=== PATIENT | female | born 1980 | race African-American/Black ===

== ENCOUNTER 2020-06-03 10:06 | Outpatient (REF) | payer OTHER, SELFPAY ==
--- NOTE | ~2020-06-03 | XR_ITS ---
EXAMINATION: XR CERVICAL SPINE CLINICAL INFORMATION: Neck pain COMPARISON: Previous x-ray August 2017 TECHNIQUE: 4 views of the cervical spine were obtained. FINDINGS: There is mild curvature of the upper thoracic spine to the left. Bone alignment is otherwise normal. No fracture or dislocation is seen. Disc spaces are normal. Prevertebral soft tissues are normal. XR/XR cervical spine 2V IMPRESSION: Mild curvature of the upper thoracic spine to the left otherwise unremarkable exam.
[2020-06-06 01:52] LABS: HPV mRNA E6/E7 rflx Not Detected (Not Detected)
== END 2020-06-03 10:07 | disposition home or self-care (01) ==
LOC: HO.XRAY 10:06
PROVIDERS: Absent Provider Internal Medicine; PCP Internal Medicine; Visit Provider Advanced Practice Midwife
DX: Z01.419 Encounter for gynecological examination (general) (routine) without abnormal findings (principal); Z11.51 Encounter for screening for human papillomavirus (HPV); E66.01 Morbid (severe) obesity due to excess calories; M54.2 Cervicalgia
CPT/HCPCS: 36415; 72040; 87624; 88142

== ENCOUNTER 2020-07-28 15:05 | Emergency (ER) | payer OTHER, SELFPAY ==
--- NOTE | ~2020-07-28 | CT_ITS ---
EXAMINATION: CT HEAD WITHOUT CONTRAST CLINICAL INFORMATION: Fall 2 days ago. Dizzy. Nausea. COMPARISON: None TECHNIQUE: Contiguous axial imaging was performed from the skull base to vertex without intravenous administration of contrast. This CT examination was performed using dose optimization techniques as appropriate, variously including the following: *Automated exposure control *Adjustment of mA and/or kV according to patient size (this includes techniques or standardized protocols for targeted exams where dose is matched to indication/reason for exam; i.e. extremities or head) *Use of iterative reconstruction technique DLP: 784 mGy-cm FINDINGS: There is no evidence of acute intracranial hemorrhage or territorial infarction. No abnormal mass effect or midline shift is seen. Ortega to white matter differentiation is well preserved. No extra-axial fluid collections are identified. The ventricles are normal in size. There is no abnormal attenuation within the brain parenchyma. The osseous structures and soft tissues are normal. The mastoid air cells and visualized portions of the paranasal sinuses are well aerated. CT/CT head/brain wo con IMPRESSION: No CT evidence of acute intracranial pathology.
[2020-07-28 15:16] VITALS: BP 178/100; PULSE 114; RESP 18; TEMP 36.6; O2SAT 99; BMI 41.5
[2020-07-28 16:00] VITALS: BP 142/80; PULSE 84; RESP 18; TEMP 36.6; O2SAT 99
[2020-07-28] MEDS: Ibuprofen 600 MG TABLET PO (18:21)
[2020-07-28 18:34] VITALS: BP 142/80; PULSE 84; RESP 18; TEMP 36.6; O2SAT 99
--- NOTE | 2020-07-28 19:02 | ED_ITS ---
HPI - Headache General Chief Complaint: Headache Stated Complaint: fall Time Seen by Provider: 07/28/20 18:50 Source: patient Mode of arrival: ambulatory Limitations: no limitations History of Present Illness HPI Narrative: Patient is a 40-year-old female with a past medical history of anxiety and depression who presents complaining of a headache. Patient states she slipped on her tile floors and fell backwards hitting the back of her head 2 days ago. She denies losing consciousness she denies being on a blood thinner but does take aspirin daily. She admits to dizziness and some nausea but has not actually vomited. She did take Tylenol Motrin at home and it did help her headache only temporarily. She states if she stays real still, it helps the pain. She states the dizziness is worse when she turns her head too quickly or tries to change positions from sitting to standing. She denies chest pain, shortness of breath. Related Data Home Medications Medication Instructions Recorded Confirmed bupropion HCl 300 mg 24 hr tablet, 300 mg PO QAM 06/03/20 06/03/20 extended release clonazepam 0.5 mg tablet 0.5 mg PO DAILY 06/03/20 06/03/20 melatonin 5 mg tablet 5 mg PO BEDTIME 06/03/20 nortriptyline 75 mg capsule 75 mg PO DAILY 06/03/20 06/03/20 quetiapine 50 mg tablet 50 mg PO BEDTIME 06/03/20 06/03/20 Previous Rx's Medication Instructions Recorded cyclobenzaprine 10 mg tablet 10 mg PO TID PRN #30 tab 06/03/20 Allergies Allergy/AdvReac Type Severity Reaction Status Date / Time No Known Allergies Allergy Verified 06/03/20 13:46 Review of Systems Review of Systems: Yes all other systems are reviewed and are negative Neurologic: Denies Abnormal speech present [facility] Past Medical History Medical History Anxiety Depression Hx of menorrhagia Sinusitis Surgical History Hx of section Hx of tubal ligation Family History Family History Mother HTN (hypertension) Diabetes Social History Social History Alcohol intake: current Alcohol intake frequency: holidays/special occasions only Smoking Status: Current every day smoker Smoked in Last 30 Days: Yes Use of substances other than those prescribed or required for medical reasons: Yes Substance Use Type: Marijuana Substance Use Frequency: Occasionally Last Used Substance: Unknown Any prior treatment program specific to substance use: No Advance Directives: No Advance Directives Information Provided: No Patient : No Gender identity: female Physical Exam Vital Signs: Vital Signs: Last Vital Signs Temp 98 F 07/28/20 18:34 Pulse 77 07/28/20 20:52 Resp 16 07/28/20 20:52 BP 135/86 07/28/20 20:52 Pulse Ox 99 07/28/20 18:34 Body Mass Index 41.5 Const: General: cooperative, healthy appearing, comfortable, well developed and anxious Orientation/consciousness: patient oriented x3 Limitations: no limitations HENMT: Head: Yes normal to inspection, Yes No palpable skull fracture present, Yes normocephalic, Yes atraumatic, No Villagomez's sign, No contusion and No raccoon eyes Eyes: General: appearance normal, both eyes and all related structures Visual Garrett: normal visual garrett by confrontation Alignment and Position: alignment normal Periorbital: periorbital findings normal Eyelids: Yes eyelids normal Sclerae: sclerae normal Corneas: corneas normal Pupils: Equal, round and reactive pupils present EOM: EOMs intact bilaterally Neck: Neck: Yes normal visual inspection, Yes full ROM and Yes supple Resp: Effort & Inspection: normal respiratory effort and able to speak in complete sentences Cardio: Rate: regular rate Back/Spine/Pelvis: Cervical Spine: cervical ROM normal, cervical muscular tend erness, No Cervical spine tenderness and No step off deformity Thoracic/Lumbar Spine: No thoracic spinal tenderness and No lumbar spinal tenderness Skin: General skin exam: no rashes or lesions noted Neuro: General: patient oriented x3 Cranial nerves: Yes CN's II-XII intact bilaterally and Yes Equal, round and reactive pupils present Cognition (Neuro): normal cognition Speech: No Abnormal speech present Gait exam (Neuro): Normal gait present Extrem: General: Yes normal to inspection Psych: Appearance: grossly normal Course Course Course Narrative: Patient is a 40-year-old female with a past medical history of anxiety and depression who presents complaining of a headache. Patient states she slipped on her tile floors and fell backwards hitting the back of her head 2 days ago and now has ZAMORA and nausea and dizziness. VSS sans elevated blood pressure upon arrival, 178/100, it is now 142/80. Heart rate also was elevated upon arrival at 114, is now 84. Physical exam reveals patient is moving very gingerly with her shoulders and neck held stiffly. Cervical spine was not tender. Will get a head CT then likely give migraine cocktail and discharge patient. Patient states she can get a ride home if medicated. Reevaluation(s) Reevaluation #1: CT of head is negative for acute process, will give migraine cocktail and reassess. Time: 20:18 Reevaluation #2: Patient reports feeling better after migraine cocktail. She has a ride home, will discharge. Time: 22:10 [facility] - Headache Imaging Data CT scan - head: Attestation: I personally reviewed and interpreted this imaging study as follows: My impression: No acute pathology Radiologist's impression: [address] [id number] Scan ReportSigned Patient: Carmen Seo EMR#: [id number]: [id number]:[id number]/Sex: 40 / FADM Date: 07/28/20Loc: [address] Dr: Ordering Physician: Janeth Lott PA-C Date of Service: 07/28/20 Procedure(s): CT head/brain wo con Accession Number(s): [id number] cc: Janeth Lott PA-C~ EXAMINATION: CT HEAD WITHOUT CONTRAST CLINICAL INFORMATION: Fall 2 days ago. Dizzy. Nausea. COMPARISON: None TECHNIQUE: Contiguous axial imaging was performed from the skull base to vertex without intravenous administration of contrast. This CT examination was performed using dose optimization techniques as appropriate, variously including the following: *Automated exposure control *Adjustment of mA and/or kV according to patient size (this includes techniques or standardized protocols for targeted exams where dose is matched to indication/reason for exam; i.e. extremities or head) *Use of iterative reconstruction technique DLP: 784 mGy-cm FINDINGS: There is no evidence of acute intracranial hemorrhage or territorial infarction. No abnormal mass effect or midline shift is seen. Ortega to white matter differentiation is well preserved. No extra-axial fluid collections are identified. The ventricles are normal in size. There is no abnormal attenuation within the brain parenchyma. The osseous structures and soft tissues are normal. The mastoid air cells and visualized portions of the paranasal sinuses are well aerated. CT/CT head/brain wo con IMPRESSION: No CT evidence of acute intracranial pathology. Dictated By:TEJAL AARON MDSigned By:<Electronically signed by TEJAL NEGRO MD in OV>07/28/201931 DD/ 1855TD/TT: Home Health Care Respiratory Therapist: PARVEEN Discharge Plan Discharge Clinical Impression: Concussion Qualifiers: Encounter type: initial encounter Loss of consciousness presence/duration: without LOC Qualified Code(s): S06.0X0A - Concussion without loss of consciousness, initial encounter Headache Qualifiers: Headache type: post-traumatic Headache chronicity pattern: acute headache Intractability: not intractable Qualified Code(s): G44.319 - Acute post-t raumatic headache, not intractable Patient Disposition: Home, Self-Care Instructions: Concussion (ED), Acute Headache (ED) Additional Instructions: Reviewed develop any acute changes in your vision, your headache suddenly gets worse, please return to the Emergency Dept or call 911. Prescriptions: No Action cyclobenzaprine 10 mg tablet 10 mg PO TID PRN (Reason: muscle spasm) Qty: 30 RF: 2 clonazepam 0.5 mg tablet 0.5 mg PO DAILY RF: 0 nortriptyline 75 mg capsule 75 mg PO DAILY RF: 0 bupropion HCl 300 mg tablet extended release 24 hr 300 mg PO QAM RF: 0 quetiapine [Seroquel] 50 mg tablet 50 mg PO BEDTIME RF: 0
--- NOTE | 2020-07-28 19:02 | PC.NURSE ---
Patient en route to CT scan.
[2020-07-28] MEDS: Lactated Ringers 1,000 ML 999 ML IV (20:46)
[2020-07-28] MEDS: diphenhydrAMINE HCL 50 MG/ML VIAL 25 MG IVPUSH (20:47)
[2020-07-28] MEDS: Ketorolac Tromethamine 30 MG/ML VIAL IVPUSH (20:47)
[2020-07-28] MEDS: Metoclopramide HCl 10 MG/2 ML VIAL IVPUSH (20:47)
[2020-07-28 20:52] VITALS: BP 135/86; PULSE 77; RESP 16
== END 2020-07-28 22:19 | disposition home or self-care (01) ==
PROVIDERS: Emergency Provider Internal Medicine; PCP Internal Medicine
DX: S06.0X0A Concussion without loss of consciousness, initial encounter (principal); G44.319 Acute post-traumatic headache, not intractable; R42 Dizziness and giddiness; F41.1 Generalized anxiety disorder; F43.0 Acute stress reaction; F33.1 Major depressive disorder, recurrent, moderate; F17.200 Nicotine dependence, unspecified, uncomplicated; W01.0XXA Fall on same level from slipping, tripping and stumbling without subsequent striking against object, initial encounter; Y93.9 Activity, unspecified; Y92.009 Unspecified place in unspecified non-institutional (private) residence as the place of occurrence of the external cause; Y99.9 Unspecified external cause status; Z79.899 Other long term (current) drug therapy; Z71.6 Tobacco abuse counseling
CPT/HCPCS: 70450; 96365; 96375; 99285; J1200; J1885; J2765

== ENCOUNTER 2020-09-09 11:10 | Outpatient (REF) | payer OTHER, SELFPAY ==
[2020-09-09 12:17] LABS: Basophils Percent Auto 0.3 % (0-2); Hemoglobin 7.2 g/dl (12.0-16.0); MANUAL DIFF FLAG SCAN; Neutrophils Percent Auto 55.4 % (45-73); SCAN SMEAR FLAG 1
[2020-09-09 12:20] LABS: Eosinophils Absolute Auto 0.1 X10*3/uL (0.0-0.4); Eosinophils Percent Auto 1.3 % (0-4); Hematocrit 26.1 % (37-47); Imm Gran Abs Auto 0.04 X10*3/uL (0.00-0.03); Imm Gran Pct Auto 0.5 % (0.0-0.4); Lymphocytes Percent Auto 38.2 % (20-40); Mean Corpuscular HGB Conc 27.6 g/dl (31.0-35.0); Mean Corpuscular Hemoglobin 15.7 pg (27.0-33.0); Monocytes Absolute Auto 0.3 X10*3/uL (0.1-1.2); Monocytes Percent Auto 4.3 % (2-11); Neutrophils Absolute Auto 4.4 X10*3/uL (2.0-8.3); Platelet Count 364 X10*3/uL (160-400); Red Blood Count 4.59 X10*6/uL (4.20-5.50); Red Cell Distribution Width 26.5 % (11.0-16.0)
[2020-09-09 12:25] LABS: Mean Corpuscular Volume 56.9 fL (80-98); PLT ABN DIST 1
[2020-09-09 12:40] LABS: SLIDE REVIEW VERIFIED
[2020-09-09 12:48] LABS: Alanine Aminotransferase < 6 U/L (0-31); Albumin Level 4.2 g/dL (3.5-5.0); Alkaline Phosphatase 88 U/L (39-117); Anion Gap 9 (12-20); Aspartate Amino Transferase 11 U/L (5-31); Bilirubin Total 0.6 mg/dL (0.0-1.0); Blood Urea Nitrogen 13 mg/dL (9-16); Calcium 9.2 mg/dL (8.4-10.2); Carbon Dioxide 26 mmol/L (22-29); Chloride 108 mmol/L (96-108); Cholesterol 156 mg/dL; Estimated Glomerular Filt Rate > 60; Glucose Fasting 98 mg/dL (60-99); HDL Cholesterol 40 mg/dL; LDL Cholesterol Calculated 98 mg/dl; Sodium 139 mmol/L (135-145); Total Protein 7.4 g/dL (6.5-8.0); Triglycerides 94 mg/dL
[2020-09-09 12:58] LABS: Syphilis Screen Nonreactive (Nonreactive)
[2020-09-09 13:05] LABS: Thyroid Stimulating Hormone 0.45 uIU/mL (0.32-4.0)
[2020-09-10 05:09] LABS: HIV AB/AG Nonreactive (Nonreactive); HIV Num 1 0.13 S/CO (0.00-0.99)
[2020-09-10 05:16] LABS: ~HepC Num1 0.06 S/CO (0.00-0.79); ~Hepatitis C Antibody Nonreactive (Nonreactive)
== END 2020-09-09 11:11 | disposition home or self-care (01) ==
LOC: HO.LAB 11:10
PROVIDERS: PCP Internal Medicine; Visit Provider Internal Medicine
DX: Z00.00 Encounter for general adult medical examination without abnormal findings (principal); Z11.3 Encounter for screening for infections with a predominantly sexual mode of transmission; Z11.4 Encounter for screening for human immunodeficiency virus [HIV]; Z20.2 Contact with and (suspected) exposure to infections with a predominantly sexual mode of transmission; E11.9 Type 2 diabetes mellitus without complications; E03.9 Hypothyroidism, unspecified
CPT/HCPCS: 36415; 80053; 80061; 84443; 85025; 86780; 86803; 87389

== ENCOUNTER 2021-01-27 14:04 | Outpatient (REF) | payer OTHER, SELFPAY ==
--- NOTE | ~2021-01-27 | XR_ITS ---
EXAMINATION: XR SHOULDER, LEFT CLINICAL INFORMATION: Pain in the left shoulder. COMPARISON: None TECHNIQUE: Four views of the left shoulder. FINDINGS: The bones and soft tissues are normal. No fracture. Glenohumeral and acromioclavicular alignment is anatomic with normal joint space. No abnormal soft tissue calcifications. XR/XR shoulder LT min 2V IMPRESSION: Normal left shoulder.
== END 2021-01-27 14:05 | disposition home or self-care (01) ==
LOC: HO.XRAY 14:04
PROVIDERS: PCP Internal Medicine; Visit Provider Internal Medicine
DX: M25.512 Pain in left shoulder (principal)
CPT/HCPCS: 73030

== ENCOUNTER 2021-03-13 11:00 | Outpatient (RCR) | payer OTHER, SELFPAY ==
--- NOTE | 2021-02-11 10:53 | MHC.PT.EP ---
[facility] [place] Office [place] Office [place] Office [address] [place] [address] [phone] F: [phone] F: [phone] F: [phone] F: [phone] Physical Therapy Plan of Care Date of Evaluation: Date of Surgery: NA Diagnosis: Pain in unspecified shoulder Assessment: Carmen is a 40 year old female who is referred to PT for pain in unspecified shoulder . Pt reports of having insidious onset of pain in B shoulder blades- L> about a month back. Denies any trauma or falls. On PT examination she reported of having 7/10 pain in B shoulder blades, TTP over medial border of B scapula from T3 to T10, had decreased B shoulder gross ROM, decreased scapular muscle strength and altered posture. Due to these impairments she had difficulty with ADLs like sleeping, cleaning, cooking, mopping, sweeping, carrying heavy weight and chopping. 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 She would benefit from skilled PT to address the aforementioned impairments and improve tolerance to ADLs. Frequency and Duration: The patient will be seen 2/week for 5 weeks Short Term Goals: 1. Pt will have 50% decrease in which will enable her to sleep through the night in 2 weeks. 2. Pt will demonstrate all thoracic ROM and mobility WNL which will help her with sweeping and mopping in 3 weeks Trimmer Sawyer Goals: 1. Pt will demonstrate an increase in muscle strength by 1 grade which will enable her to carry heavy objects and performing chopping activities in 5 weeks. 2. Pt will be independent with HEP for symptom management and maintenance following d/c in 5 weeks Treatment Plan: Modalities to reduce pain, spasms and effusion. Manual therapy to restore motion and function. Therapeutic exercise to improve strength and flexibility. Neuromuscular re-education for posture and balance. Therapeutic activities to return to functional activities of daily living. Electronically signed by: Zandra Cade PT DPT Please sign and return to therapist. Thank you for your referral.
--- NOTE | 2021-04-15 14:11 | MHC.PT.DC ---
[facility] [place] [facility] [place] Office [place] Office [address] [place] [address] [phone] F: [phone] F: [phone] F: [phone] F: [phone] Physical Therapy Discharge Report Diagnosis: Pain in unspecified shoulder Date of Surgery: NA Date of Evaluation: 02/11/21 Date of Discharge: 04/15/21 Treatments to Date: 8 Cancellations to Date: 0 No Shows to Date: 0 Discharge Status: Patient Elected to Stop Discharge Summary: Carmen was making progress however stopped therapy after 8 visits. Attempted to call pt to make appointments however pt did not return to therapy. She is therefore being d/c from therapy. Electronically signed by: Zandra Cade, PT DPT Please sign and return to therapist. Thank you for your referral.
== END 2021-04-15 14:12 | disposition home or self-care (01) ==
LOC: HO.PT 11:00
PROVIDERS: PCP Internal Medicine; Visit Provider Internal Medicine
DX: M25.512 Pain in left shoulder (principal)
CPT/HCPCS: 97110; 97140; 97161

== ENCOUNTER 2021-06-25 09:27 | Outpatient (REF) | payer OTHER, SELFPAY ==
[2021-06-26 07:55] LABS: CT PCR NOT DETECTED (Not Detect.); NG PCR NOT DETECTED (Not Detect.)
== END 2021-06-25 09:28 | disposition home or self-care (01) ==
LOC: HO.LAB 09:27
PROVIDERS: Visit Provider Obstetrics & Gynecology
DX: Z01.419 Encounter for gynecological examination (general) (routine) without abnormal findings (principal); N93.9 Abnormal uterine and vaginal bleeding, unspecified; Z11.3 Encounter for screening for infections with a predominantly sexual mode of transmission; Z11.8 Encounter for screening for other infectious and parasitic diseases; F17.210 Nicotine dependence, cigarettes, uncomplicated; F41.8 Other specified anxiety disorders; Z98.51 Tubal ligation status; Z68.42 Body mass index [BMI] 45.0-49.9, adult
CPT/HCPCS: 87491; 87591; 99212

== ENCOUNTER 2021-07-16 11:26 | Outpatient (REF) | payer OTHER, SELFPAY ==
--- NOTE | ~2021-07-16 | US_ITS ---
EXAMINATION: US PELVIS CLINICAL INFORMATION: Abnormal vaginal bleeding. COMPARISON: None TECHNIQUE: Ultrasound of the pelvis is performed using both transabdominal and transvaginal transducers along with Doppler. Transvaginal imaging is performed due to inadequate visualization transabdominally. FINDINGS: UTERUS: The uterus is measuring 12 x 4 x 6 cm. Anteverted and anteflexed. The endometrial thickness is measured by the pulp mill team leader at 2.2 cm. This is endovaginally. Characterized by mixed echogenicity on the endovaginal exam only. RIGHT OVARY: The right ovary is 4 x 2.8 x 2.5 cm. Volume 15 mL. LEFT OVARY: The left ovary is 3.3 x 2 x 2.7 cm. Volume 9 mL. The ovaries are felt to be within normal limits. Normal ovarian vascularity. A small amount of free fluid is noted. US/US pelvic and transvaginal IMPRESSION: Endometrium on the endovaginal images is characterized by ill-definition and the aviation survival technician measures the endometrial region at 2.2 cm. Therefore hyperplasia or polyp formation versus other would be a consideration. The ovaries are within normal limits. Small amount free fluid is noted.
== END 2021-07-16 11:27 | disposition home or self-care (01) ==
LOC: HO.US 11:26
PROVIDERS: Visit Provider Obstetrics & Gynecology
DX: N93.9 Abnormal uterine and vaginal bleeding, unspecified (principal)
CPT/HCPCS: 76830; 76856

== ENCOUNTER 2021-08-12 08:46 | Outpatient (REF) | payer OTHER, SELFPAY | END 2021-08-12 08:47 | disposition home or self-care (01) | LOC: HO.LAB 08:46 | PROVIDERS: Visit Provider Obstetrics & Gynecology | DX: N93.9 Abnormal uterine and vaginal bleeding, unspecified (principal); Z32.02 Encounter for pregnancy test, result negative | CPT/HCPCS: 58100; 81025; 88305 ==

== ENCOUNTER 2021-08-19 10:05 | Outpatient (REF) | payer OTHER, SELFPAY ==
[2021-08-19 11:49] LABS: Hemoglobin 7.1 g/dl (12.0-16.0); Mean Corpuscular HGB Conc 27.3 g/dl (31.0-35.0); Mean Corpuscular Hemoglobin 15.8 pg (27.0-33.0); NRBC Pct Auto 0.2 /100WBC (0.0-0.2); Platelet Count 277 X10*3/uL (160-400); Red Blood Count 4.49 X10*6/uL (4.20-5.50); Red Cell Distribution Width 27.4 % (11.0-16.0)
[2021-08-19 11:51] LABS: Mean Corpuscular Volume 57.9 fL (80.0-98.0)
[2021-08-19 12:20] LABS: HCG Quantitative < 2 mIU/mL; TSH reflex Free T4 0.77 uIU/mL (0.32-4.0)
== END 2021-08-19 10:06 | disposition home or self-care (01) ==
LOC: HO.LAB 10:05
PROVIDERS: PCP Internal Medicine; Visit Provider Obstetrics & Gynecology
DX: N93.9 Abnormal uterine and vaginal bleeding, unspecified (principal)
CPT/HCPCS: 36415; 84443; 84702; 85027; 99212

== ENCOUNTER → 2021-08-26 10:02 | Outpatient (BNVA) | payer OTHER, SELFPAY | PROVIDERS: PCP Internal Medicine; Visit Provider Obstetrics & Gynecology | DX: N93.9 Abnormal uterine and vaginal bleeding, unspecified (principal); D64.9 Anemia, unspecified | CPT/HCPCS: 99212 ==

== ENCOUNTER 2021-09-01 07:47 | Outpatient (REF) | payer OTHER, SELFPAY ==
--- NOTE | ~2021-09-01 | MM_ITS ---
EXAMINATION: MM SCREENING DIGITAL BREAST TOMOSYNTHESIS, BILATERAL CLINICAL INFORMATION: 41-year-old for baseline screening. At time of appointment, patient notes clear right nipple discharge for one year. No known family history breast cancer. Age 41. No prior breast imaging. The lifetime risk of breast cancer based on the Tyrer-Cuzick Model is 9%. COMPARISON: None (current study represents initial baseline exam). TECHNIQUE: Digital breast tomosynthesis is performed in both the craniocaudal and mediolateral oblique views along with computer-aided detection (CAD). Synthesized 2D images are generated from the tomosynthesis. Additional bilateral CC, right MLO, and left MLO x2 views are obtained for coverage. FINDINGS: There are scattered areas of fibroglandular density (ACR BI-RADS breast composition Category b). There is fine fibronodular pattern. There is no architectural abnormality or abnormal calcifications. Right breast has smooth benign-appearing 0.5 cm oval nodule posterior 9:00 position. Left breast has 2 smooth benign-appearing dominant nodules central breast slightly inner and slightly lateral on CC view, under 1 cm. The bilateral axilla and skin contours are unremarkable. There are bilateral nipple piercings. MM/MM tomosynthesis screening BI IMPRESSION: -Bilateral benign-appearing nodularity. ASSESSMENT: BI-RADS 0: Incomplete - Need Additional Imaging Evaluation RECOMMENDATION: 1. Bilateral targeted breast ultrasound for probable benign nodularity. Right breast ultrasound to also include the retroareolar/periareolar region in this patient with chronic right clear nipple discharge. 2. Radiology department staff will contact the patient for additional imaging. This patient's information was entered into a reminder system with a target due date for their next mammogram.
== END 2021-09-01 07:48 | disposition home or self-care (01) ==
LOC: HO.MAMMO 07:47
PROVIDERS: PCP Internal Medicine; Visit Provider Internal Medicine
DX: Z12.31 Encounter for screening mammogram for malignant neoplasm of breast (principal)
CPT/HCPCS: 77063; 77067

== ENCOUNTER 2021-09-03 09:57 | Outpatient (REF) | payer OTHER, SELFPAY ==
--- NOTE | ~2021-09-03 | US_ITS ---
EXAMINATION: US DIAGNOSTIC ULTRASOUND BREAST, RIGHT US DIAGNOSTIC ULTRASOUND BREAST, LEFT CLINICAL INFORMATION: 41-year-old with history clear unilateral right nipple discharge for one year with squeezing. No spontaneous discharge, bloody discharge, or palpable abnormality. Baseline screening mammography shows benign-appearing nodularity left breast and posterior 9:00 right breast. No known family history breast cancer. TC score 9%. COMPARISON: Screening mammography 09/01/2021. TECHNIQUE: Ultrasound of the bilateral breasts is targeted to the areas of nodularity described on screening exam. In addition, retroareolar and periareolar imaging right breast performed. Grayscale imaging and color Doppler are performed without and with harmonics. FINDINGS: Right: There is no focal suspicious finding. There is no cystic or solid mass, architectural abnormality, duct ectasia, or edema in the soft tissue planes. There is no ultrasound correlate for patient's unilateral nipple discharge. The benign-appearing nodularity posterior 9:00 is no ultrasound correlate. Left: There is no focal suspicious finding. There is no cystic or solid mass, architectural abnormality, duct ectasia, or edema in the soft tissue planes. There are no ultrasound correlates for the benign-appearing nodularity central inner and central outer left breast noted at screening. Results are discussed with the patient at time of visit. US/US breast LT limited IMPRESSION: -Unremarkable bilateral ultrasound. -No cystic or solid mass or architectural abnormality. ASSESSMENT: BI-RADS 3: Probably Benign RECOMMENDATION: 1. Patient's chronic clear non-spontaneous unilateral right nipple discharge should be managed based on the clinical impression. If clinically indicated, further evaluation could be performed with breast MRI without and with contrast. 2. Otherwise, bilateral diagnostic mammography in 6 months to follow the probable benign nodularity noted at screening. This patient's information was entered into a reminder system with a target due date for their next mammogram.
--- NOTE | ~2021-09-03 | US_ITS ---
EXAMINATION: US DIAGNOSTIC ULTRASOUND BREAST, RIGHT US DIAGNOSTIC ULTRASOUND BREAST, LEFT CLINICAL INFORMATION: 41-year-old with history clear unilateral right nipple discharge for one year with squeezing. No spontaneous discharge, bloody discharge, or palpable abnormality. Baseline screening mammography shows benign-appearing nodularity left breast and posterior 9:00 right breast. No known family history breast cancer. TC score 9%. COMPARISON: Screening mammography 09/01/2021. TECHNIQUE: Ultrasound of the bilateral breasts is targeted to the areas of nodularity described on screening exam. In addition, retroareolar and periareolar imaging right breast performed. Grayscale imaging and color Doppler are performed without and with harmonics. FINDINGS: Right: There is no focal suspicious finding. There is no cystic or solid mass, architectural abnormality, duct ectasia, or edema in the soft tissue planes. There is no ultrasound correlate for patient's unilateral nipple discharge. The benign-appearing nodularity posterior 9:00 is no ultrasound correlate. Left: There is no focal suspicious finding. There is no cystic or solid mass, architectural abnormality, duct ectasia, or edema in the soft tissue planes. There are no ultrasound correlates for the benign-appearing nodularity central inner and central outer left breast noted at screening. Results are discussed with the patient at time of visit. US/US breast RT limited IMPRESSION: -Unremarkable bilateral ultrasound. -No cystic or solid mass or architectural abnormality. ASSESSMENT: BI-RADS 3: Probably Benign RECOMMENDATION: 1. Patient's chronic clear non-spontaneous unilateral right nipple discharge should be managed based on the clinical impression. If clinically indicated, further evaluation could be performed with breast MRI without and with contrast. 2. Otherwise, bilateral diagnostic mammography in 6 months to follow the probable benign nodularity noted at screening. This patient's information was entered into a reminder system with a target due date for their next mammogram.
== END 2021-09-03 09:58 | disposition home or self-care (01) ==
LOC: HO.MAMMO 09:57
PROVIDERS: PCP Internal Medicine; Visit Provider Internal Medicine
DX: N63.25 Unspecified lump in the left breast, overlapping quadrants (principal); N64.52 Nipple discharge
CPT/HCPCS: 76642

== ENCOUNTER → 2021-10-28 12:49 | Outpatient (BNVA) | payer OTHER, SELFPAY | PROVIDERS: PCP Internal Medicine; Visit Provider Obstetrics & Gynecology | DX: N93.9 Abnormal uterine and vaginal bleeding, unspecified (principal); D64.9 Anemia, unspecified | CPT/HCPCS: 99212 ==

== ENCOUNTER 2021-11-27 11:02 | Outpatient (REF) | payer OTHER, SELFPAY ==
[2021-11-27 12:35] LABS: Hematocrit 31.5 % (37.0-47.0); Mean Corpuscular HGB Conc 28.6 g/dl (31.0-35.0); Mean Corpuscular Hemoglobin 18.2 pg (27.0-33.0); Platelet Count 379 X10*3/uL (160-400); Red Blood Count 4.94 X10*6/uL (4.20-5.50); Red Cell Distribution Width 23.8 % (11.0-16.0); White Blood Count 9.6 X10*3/uL (4.8-10.8)
[2021-11-27 12:39] LABS: Mean Corpuscular Volume 63.8 fL (80.0-98.0)
[2021-11-27 13:07] LABS: Alanine Aminotransferase 10 U/L (0-31); Albumin Level 4.1 g/dL (3.5-5.0); Alkaline Phosphatase 106 U/L (39-117); Anion Gap 14 (12-20); Aspartate Amino Transferase 13 U/L (5-31); Bilirubin Total 0.5 mg/dL (0.0-1.0); Blood Urea Nitrogen 9 mg/dL (9-16); Calcium 9.4 mg/dL (8.4-10.2); Carbon Dioxide 25 mmol/L (22-29); Chloride 106 mmol/L (96-108); Cholesterol 130 mg/dL; Estimated Glomerular Filt Rate > 60; Glucose Fasting 93 mg/dL (60-99); HDL Cholesterol 33 mg/dL; LDL Cholesterol Calculated 87 mg/dl; Sodium 141 mmol/L (135-145); Total Protein 7.5 g/dL (6.5-8.0); Triglycerides 51 mg/dL
== END 2021-11-27 11:03 | disposition home or self-care (01) ==
LOC: HO.LAB 11:02
PROVIDERS: PCP Internal Medicine; Visit Provider Obstetrics & Gynecology
DX: N93.9 Abnormal uterine and vaginal bleeding, unspecified (principal); I10 Essential (primary) hypertension; E78.5 Hyperlipidemia, unspecified
CPT/HCPCS: 36415; 80053; 80061; 85027; 99212

== ENCOUNTER 2022-03-10 13:21 | Outpatient (REF) | payer OTHER, SELFPAY ==
--- NOTE | ~2022-03-10 | MM_ITS ---
EXAMINATION: MM DIAGNOSTIC DIGITAL BREAST TOMOSYNTHESIS, BILATERAL CLINICAL INFORMATION: Bilateral nodular densities. The lifetime risk of breast cancer based on the Tyrer-Cuzick Model is 9.0%. COMPARISON: Mammography: 09/03/2021 and 09/01/2021. TECHNIQUE: Digital breast tomosynthesis is performed in both the craniocaudal and mediolateral oblique views along with computer-aided detection (CAD). Synthesized 2D images are generated from the tomosynthesis. FINDINGS: There are scattered areas of fibroglandular density (ACR BI-RADS breast composition Category b). There are no new significant masses, abnormal calcifications, or other abnormalities. There is stability of the bilateral densities with the density about the deep aspect of the right breast appearing to have a fatty cleft and likely representing an intramammary lymph node. Recommend 1 year diagnostic mammography as followup. Results are discussed with the patient at time of visit. MM/MM tomosynthesis diagnostic BI IMPRESSION: There are no significant changes from prior study. ASSESSMENT: BI-RADS 3: Probably Benign. RECOMMENDATION: Diagnostic mammography at time of next annual exam, due in 12 months. This patient's information was entered into a reminder system with a target due date for their next mammogram.
== END 2022-03-10 13:22 | disposition home or self-care (01) ==
LOC: HO.MAMMO 13:21
PROVIDERS: Visit Provider Internal Medicine
DX: R92.2 Inconclusive mammogram (principal)
CPT/HCPCS: 77062; 77066

== ENCOUNTER 2022-04-23 14:00 | Outpatient (REF) | payer OTHER, SELFPAY ==
--- NOTE | ~2022-04-23 | XR_ITS ---
EXAMINATION: XR KNEE, LEFT CLINICAL INFORMATION: Pain. COMPARISON: None TECHNIQUE: AP and lateral views of the left knee. FINDINGS: Bony alignment and mineralization are normal. The lateral, medial and patellofemoral joint space compartments are well-maintained. There is mild peripheral osteophyte formation of the upper and lower articular surfaces of the patella. No fracture, dislocation or joint effusion is seen. There is no foreign body. XR/XR knee LT 2V IMPRESSION: 1. No fracture, dislocation or left knee joint effusion is seen. 2. There is mild osteoarthritic change of the left patellofemoral compartment.
== END 2022-04-23 14:01 | disposition home or self-care (01) ==
LOC: HO.XRAY 14:00
PROVIDERS: PCP Internal Medicine; Visit Provider Internal Medicine
DX: M25.562 Pain in left knee (principal)
CPT/HCPCS: 73560

== ENCOUNTER 2022-04-26 17:03 | Emergency (ER) | payer OTHER, SELFPAY ==
[2022-04-26 17:06] VITALS: BP 195/95; PULSE 117; RESP 18; TEMP 36.7; O2SAT 99; BMI 41.5
--- NOTE | 2022-04-26 17:16 | ED_ITS ---
HPI - General Adult General Chief complaint: Skin/Abscess/Foreign Body Stated complaint: Ruptured abscess Time Seen by Provider: 04/26/22 17:16 Source: patient Mode of arrival: ambulatory Limitations: no limitations History of Present Illness HPI narrative: Patient is a 42 year old assigned female at with a history of depression presenting to the emergency department today with a ruptured cyst on her chest. Patient states that she has gotten a cyst in the same spot on her left chest just under her breast before but this time it opened up on it's own. Patient states that she has had some minimal drainage from the area. Patient denies any dizziness, lightheadedness, abdominal pain, nausea, vomiting, fever, chills, blurry vision, double vision, loss of vision, chest pain, difficulty breathing, shortness of breath, back pain, night sweats, pain with urination, increased urinary frequency, increased urinary urgency, blood in her urine or stool, syncope or a near syncopal episode, recent trauma or falls, bowel incontinence, bladder incontinence, bowel retention, bladder retention, or any other complaints at this time. Onset (ago): day(s) Location: chest Radiation: non-radiation Severity: mild Severity scale (1-10): 2 Quality: dull Relieving factors: none Exacerbating factors: none Associated symptoms: denies other symptoms Treatments prior to arrival: none Related Data Home Medications Medication Instructions Recorded Confirmed bupropion HCl 300 mg 24 hr tablet, 300 mg PO QAM 06/03/20 04/23/22 extended release clonazepam 0.5 mg tablet 0.5 mg PO DAILY 06/03/20 04/23/22 melatonin 5 mg tablet 5 mg PO BEDTIME 06/03/20 04/23/22 quetiapine 50 mg tablet (Seroquel) 50 mg PO BEDTIME 06/03/20 04/23/22 duloxetine 30 mg capsule,delayed 30 mg PO DAILY 01/27/21 04/23/22 release duloxetine 60 mg capsule,delayed 60 mg PO DAILY 09/04/21 04/23/22 release Previous Rx's Medication Instructions Recorded ibuprofen 600 mg tablet 600 mg PO Q8H PRN pain 3 days #30 11/27/21 tabs naproxen 500 mg tablet (Naprosyn) 500 mg PO BID PRN pain #60 tabs 04/23/22 cephalexin 500 mg capsule 500 mg PO Q6H 7 days #28 caps 04/26/22 fluconazole 150 mg tablet 150 mg PO Q3D 2 doses #2 tabs 04/26/22 (Diflucan) Allergies Allergy/AdvReac Type Severity Reaction Status Date / Time No Known Allergies Allergy Verified 04/23/22 13:27 Review of Systems Constitutional: Constitutional: Reports no additional constitutional complaints, Denies chills, Denies fever(s) and Denies night sweats Eyes: Eyes: Reports no additional eye complaints, Denies blurry vision, Denies change in vision, Denies diplopia, Denies eye discharge, Denies loss of vision and Denies eye pain ENT: Denies dizziness Cardiovascular: Cardiovascular: Reports no additional cardiovascular complaints, Denies chest pain, Denies lightheadedness, Denies Loss of Consciousness and Denies dyspnea Respiratory: Respiratory: Reports no additional respiratory complaints and Denies dyspnea Gastrointestinal: Gastrointestinal: Reports no additional gastrointestinal complaints, Denies abdominal pain, Denies melena, Denies hematochezia, Denies change in bowel habits and Denies change in stool character Genitourinary: Genitourinary: Denies hematuria, Denies urinary frequency, Denies dysuria, Denies urinary incontinence, Denies urinary hesitancy and Denies urinary urgency Musculoskeletal: Musculoskeletal: Reports no additional musculoskeletal complaints, Denies numbness and Denies tingling Integumentary/Breasts: Comments: ruptured cyst on left chest Neurologic: Denies dizziness, Denies loss of vision, Denies numbness and Denies tingling Psychiatric: Psychiatric: Reports no additional psychiatric complaints Endocrine: Endocrine: Reports no additional endocrine complaints Hematologic/Lymphatic: Hematologic/Lymphatic: Reports no additional hematologic/lymphatic complaints Allergic/Immunologic: Allergic/Immunologic: Reports no additional allergic/immunologic complaints [facility] Past Medical History Attestation statement: The following information was validated with the patient. Source: old records reviewed and nursing notes reviewed Medical History Anxiety Hx of menorrhagia Sinusitis Surgical History Hx of section Hx of tubal ligation Family History Family History Mother HTN (hypertension) Diabetes Mental health disorder Substance use disorder Social History Social History Housing: Apartment Alcohol intake: current Alcohol intake frequency: holidays/special occasions only Patient Tobacco Use Status: Former Tobacco user Quit Date: 04/13/22 Tobacco use type: Cigarette Cigarettes Per Day: 0 e-Cigarette/Vaping Use: Never Used Second Hand Smoke Exposure: No Substance Use Type: Marijuana Advance Directives: No Advance Directives Information Provided: Yes service: No Current occupational status: employed and unemployed Current occupation: [employer] Gender identity: Female Cognitive needs: No Hearing needs: No Vision needs: No Physical Exam ED Vital Signs: Vital Signs - 24 hr 04/26/22 17:06 Temperature 98.1 F Pulse Rate 117 H Respiratory Rate 18 Blood Pressure 195/95 H Pulse Oximetry 99 Oxygen Delivery Method Room Air BMI result Body Mass Index 41.5 Const General: cooperative, no acute distress, alert and awake Nutritional Appearance: well nourished Orientation/consciousness: patient oriented x3 Limitations: no limitations HENMT Head: Yes normal to inspection and Yes atraumatic Ears: hearing grossly normal bilaterally and external ears normal General nose exam: Normal external nose present, no nasal discharge noted and no epistaxis Face and sinus: Yes normal facial exam, No abrasion and No laceration Mouth: Normal oral and palatal mucosa present, no drooling and no muffled voice Eyes General: appearance normal, both eyes and all related structures Periorbital: periorbital findings normal Eyelids: Yes eyelids normal Conjunctivae: conjunctivae normal Pupils: Equal, round and reactive pupils present EOM: EOMs intact bilaterally Neck Neck: Yes normal visual inspection, Yes full ROM and Yes no lymphadenopathy Chest Chest palpation & inspection: normal inspection of the chest Resp Effort & Inspection: normal respiratory effort and able to speak in complete sentences Auscultation: clear to auscultation bilaterally GI Inspection: Yes normal to inspection Palpation (GI): Soft to palpation, not firm, nontender and no guarding Skin Other: small open area under the medial aspect of the left breast Neuro General: patient oriented x3 and moves all extremities Cranial nerves: Yes Equal, round and reactive pupils present Cognition (Neuro): normal cognition Motor exam (neuro): 5/5 motor strength present throughout Sensory Exam: Normal double simultaneous stimulation for sensation Coordination: [id number] test normal Extrem General: Yes normal to inspection, Yes full ROM and Yes capillary refill normal Psych Appearance: grossly normal Mental Status: mental status grossly normal Affect: normal affect Attitude: cooperative Thought process: Normal thought process present Thought content: Normal thought content present Insight: Good insight present (Psych) Medical Decision Making Medical Decision Making MDM Narrative: Patient is a 42 year old assigned female at with a history of depression presenting to the emergency department today with a ruptured chest cyst. Patient's physical exam showed a small ruptured cyst under the left medial breast with no active bleeding or drainage. I explained my physical exam findings to the patient. I answered all questions asked by the patient. I stressed the importance of the patient taking her medication as prescribed. I stressed the importance of the patient following up with her primary care provider and a general surgeon. I stressed the importance of the patient returning to the emergency department immediately if her symptoms were to worsen or if she were to develop any dizziness, shortness of breath, difficulty breathing, chest pain, blurry vision, loss of vision, nausea, vomiting, abdominal pain, fever, chills, back pain, or any other complaints. Patient verbalized agreement and understanding with this treatment plan and discharge. Differential Diagnosis Differential Diagnoses: The differential diagnosis associated with the presentation includes ruptured chest cyst Discharge Plan Discharge Clinical Impression: Ruptured sebaceous cyst Patient Disposition: Home, Self-Care Instructions: Epidermal Inclusion Cysts (ED) Additional Instructions: Keep the area clean and dry. Perform daily wound checks and dressing changes. Follow up with your primary care provider and a general surgeon. Return to the emergency department immediately if your symptoms worsen or if you develop any dizziness, shortness of breath, difficulty breathing, chest pain, blurry vision, loss of vision, nausea, vomiting, abdominal pain, fever, chills, back pain, or any other complaints. Prescriptions: New cephalexin 500 mg capsule 500 mg PO Q6H 7 Days Qty: 28 0RF fluconazole [Diflucan] 150 mg tablet 150 mg PO Q3D 0 Days Qty: 2 0RF No Action melatonin 5 mg tablet 5 mg PO BEDTIME duloxetine 60 mg capsule,delayed release(DR/EC) 60 mg PO DAILY duloxetine 30 mg capsule,delayed release(DR/EC) 30 mg PO DAILY naproxen [Naprosyn] 500 mg tablet 500 mg PO BID PRN (Reason: pain) Qty: 60 0RF clonazepam 0.5 mg tablet 0.5 mg PO DAILY bupropion HCl 300 mg tablet extended release 24 hr 300 mg PO QAM quetiapine [Seroquel] 50 mg tablet 50 mg PO BEDTIME ibuprofen 600 mg tablet 600 mg PO Q8H PRN (Reason: pain) 3 Days Qty: 30 3RF Rx Instructions: day 1 -3 of menstrua; cycle Referrals: [facility] [place] General Surgeons [Provider Group] (Call to establish and follow up with a general surgeon. ) Tobin Shen MD [Primary Care Provider] - Interventions: ED Discharge Assessment Last Done: 04/26/22 18:07 Discharge Date/Time: 04/26/22 18:08 Print Language: Citizen Of [place]
== END 2022-04-26 18:08 | disposition home or self-care (01) ==
PROVIDERS: Emergency Provider Emergency Medicine; PCP Internal Medicine
DX: N60.82 Other benign mammary dysplasias of left breast (principal); Z79.899 Other long term (current) drug therapy
CPT/HCPCS: 99282

== ENCOUNTER → 2022-06-16 09:46 | Outpatient (BNVA) | payer OTHER, SELFPAY | PROVIDERS: PCP Internal Medicine; Referring Provider Internal Medicine; Visit Provider Surgery | DX: L72.3 Sebaceous cyst (principal) | CPT/HCPCS: 99202 ==

== ENCOUNTER 2022-07-01 07:25 | Day surgery (SDC) | payer OTHER, SELFPAY ==
[2022-06-26 11:04] VITALS: BMI 48.6
--- NOTE | 2022-06-30 09:06 | HO.ANESPROP2 ---
Documented by User: Michaela Win NP 06/30/22 09:07 HPI - Anesthesia Eval Consult details Narrative: 42yo F for Excision Lt anterior chest wall Mass PMFSH Active Problems Active Problems: All Active Problems (Updated 06/16/22 @ 10:14 by Emmanuel Willson MD) Sebaceous cyst (Acute) Breast cyst (Acute) Depression (Acute) Morbid obesity (Acute) Physical exam (Acute) Abnormal uterine bleeding (AUB) (Acute) Well woman exam (Acute) Shoulder pain (Acute) Physical exam (Acute) Neck pain (Acute) Obesity, morbid, BMI 40.0-49.9 (Acute) Cervical cancer screening (Acute) Well woman exam with routine gynecological exam (Acute) Past Medical History Medical History Anxiety Hx of menorrhagia Sinusitis Family History Family History Mother HTN (hypertension) Diabetes Mental health disorder Substance use disorder Surgical History Surgical History Hx of section Hx of tubal ligation Social History Social History Housing: Apartment Alcohol intake: current Alcohol intake frequency: does not drink Patient Tobacco Use Status: Current everyday Tobacco user Tobacco use type: Cigarette Cigarettes Per Day: 0 e-Cigarette/Vaping Use: Never Used Second Hand Smoke Exposure: No Substance Use Type: Marijuana Are you DNR?: No Advance Directives: No Advance Directives Information Provided: Yes service: No Current occupational status: employed and unemployed Current occupation: [employer] Gender identity: Female Cognitive needs: No Hearing needs: No Vision needs: No Meds Allergies Allergy/AdvReac Type Severity Reaction Status Date / Time No Known Allergies Allergy Verified 06/16/22 10:02 Home Medications Medication Instructions Recorded Confirmed Last Taken Type clonazepam 0.5 mg tablet 0.5 mg PO DAILY 06/03/20 06/26/22 Unknown History quetiapine 50 mg tablet (Seroquel) 50 mg PO BEDTIME 06/03/20 06/26/22 Unknown History bupropion HCl 300 mg 24 hr tablet, 300 mg PO DAILY 06/26/22 06/26/22 Unknown History extended release duloxetine 60 mg capsule,delayed 120 mg PO DAILY 06/26/22 06/26/22 Unknown History release melatonin 5 mg tablet 5 mg PO BEDTIME 06/26/22 06/26/22 Unknown History Exam Exam Date and Time: June 30, [id number] Height,Weight and Vital Signs: Height 5 ft 5 in Weight 132.449 kg Pertinent Lab Results Pertinent Lab Results: Laboratory Tests 11/27/21 11/27/21 11:50 11:50 WBC 9.6 Hgb 9.0 L D Hct 31.5 L D Plt Count 379 D Sodium 141 Potassium 4.0 Chloride 106 Carbon Dioxide 25 BUN 9 Creatinine 0.72 Assessment and Plan Assessment Anesthesia Assessment: Chart Reviewed Documented by User: Valente Michael MD 07/01/22 08:13 [facility] Past Medical History Medical History Anxiety Hx of menorrhagia Sinusitis Family History Family History Mother HTN (hypertension) Diabetes Mental health disorder Substance use disorder Family history of problems with anesthesia: No Surgical History Surgical History Hx of section Hx of tubal ligation History of Problems with Anesthesia: No Social History Social History Housing: Apartment Alcohol intake: current Alcohol intake frequency: does not drink Patient Tobacco Use Status: Current everyday Tobacco user Tobacco use type: Cigarette Cigarettes Per Day: 0 e-Cigarette/Vaping Use: Never Used Second Hand Smoke Exposure: No Substance Use Type: Marijuana Are you DNR?: No Advance Directives: No Advance Directives Information Provided: Yes service: No Current occupational status: employed and unemployed Current occupation: [employer] Gender identity: Female Cognitive needs: No Hearing needs: No Vision needs: No Meds Allergies Allergy/AdvReac Type Severity Reaction Status Date / Time No Known Allergies Allergy Verified 06/16/22 10:02 Home Medications Medication Instructions Recorded Confirmed Last Taken Type clonazepam 0.5 mg tablet 0.5 mg PO DAILY 06/03/20 06/26/22 Unknown History quetiapine 50 mg tablet (Seroquel) 50 mg PO BEDTIME 06/03/20 06/26/22 Unknown History bupropion HCl 300 mg 24 hr tablet, 300 mg PO DAILY 06/26/22 06/26/22 Unknown History extended release duloxetine 60 mg capsule,delayed 120 mg PO DAILY 06/26/22 06/26/22 Unknown History release melatonin 5 mg tablet 5 mg PO BEDTIME 06/26/22 06/26/22 Unknown History Exam Airway Mallampati Class: III TM Dist: <=3cm Neck ROM: Full Heart: rrr Lungs: cta Assessment and Plan Final Anesthetic Review Family History of Problems with Anesthesia: No History of Problems with Anesthesia: No NPO: Yes ASA Class: III Final Preanesthetic Review: No Changes in Pt Med Stat, Meds/Allgs Chart Reviewed, Consent Obtained/Reviewed and Anes Risks/Benef Reviewed Patient Risk: Intermediate Procedure Risk: Low Anesthetic Plan Anesthetic Plan: GA, MAC: and Other (Daily Pot smoker) Disposition: Standard PACU
--- NOTE | 2022-06-30 13:26 | MHC.SHP ---
Pre-Procedural Eval Section A Date of Service: 06/30/22 The patient is an INPATIENT: No Changes since office visit: No Cold of Flu in the past 2 weeks, No New Medical Problems, No Changes in Medication and No Patient answered all questions The History & Physical has been completed within 30 days and I have reviewed it.: Yes Section B Chief Complaint: Sebaceous cyst Allergies: Allergies Allergy/AdvReac Type Severity Reaction Status Date / Time No Known Allergies Allergy Verified 06/16/22 10:02 Plan I have reviewed the history and physical and performed a pertinent physical examination on my patient. No changes have occurred unless specified. Time Spent With Patient Time: Total time managing care of this patient today ____ minutes.
[2022-07-01 07:29] VITALS: BP 152/98; PULSE 103; RESP 20; TEMP 36.1; O2SAT 100
[2022-07-01] MEDS: Lactated Ringers 1,000 ML 100 ML IVCONT (07:48)
[2022-07-01 08:55] VITALS: BP 124/69; PULSE 93; RESP 12; TEMP 36.2; O2SAT 98
--- NOTE | 2022-07-01 08:59 | W.PM.OPN ---
Operative Note Operative Note Date of Service: 07/01/22 Narrative: Preoperative diagnosis: [] Left inframammary fold recurrence sebaceous cyst Postop diagnosis: [] Same Procedure [] excision left inframammary fold recurrence sebaceous cyst Surgeon: [] Demetris Clay Machine Operator: [] Type of Anesthesia: [] MAC Indication for surgery: [] As noted above Findings: [] Final specimen measuring 6 x 3 cm consistent with a large sebaceous cyst sent to pathology Patient is brought to the operating room, placed on the operating table in a supine position, after adequate level of MAC anesthesia was induced the left inframammary area was prepped and draped in usual sterile fashion. Premarked incision area was infiltrated with 1% lidocaine with by 0.5 bupivacaine local analgesia, and then a transverse bi- elliptical incision with final dimensions of the wound as described above was carried down through skin, subcutaneous tissue, initially with scalpel and then undermined using electro Bovie. Wound was irrigated, secured hemostasis, and closed using interrupted inverted dermal 3-0 Vicryl sutures followed by Steri-Strips and sterile dressings. Sponge, needle, and instrument counts were reported to be correct. Patient tolerated the procedure well and emerged from anesthesia stable condition. EBL minimal
[2022-07-01 09:00] VITALS: BP 125/86; PULSE 86; RESP 17; O2SAT 98
[2022-07-01 09:05] VITALS: BP 125/86; PULSE 86; RESP 16; O2SAT 98
[2022-07-01 09:24] VITALS: BP 120/79; PULSE 87; RESP 18; TEMP 36.2; O2SAT 97
== END 2022-07-01 10:16 | disposition home or self-care (01) ==
PROVIDERS: PCP Internal Medicine; Visit Provider Surgery
PROC: (CPT 11406; principal; 2022-07-01 08:40)
DX: L72.3 Sebaceous cyst (principal); F41.1 Generalized anxiety disorder; E66.01 Morbid (severe) obesity due to excess calories; Z68.42 Body mass index [BMI] 45.0-49.9, adult; Z79.899 Other long term (current) drug therapy; Z87.891 Personal history of nicotine dependence
CPT/HCPCS: 11406; 88304; 88305; J0690; J1885; J2405; J2795

== ENCOUNTER → 2022-07-09 11:10 | Outpatient (BNVA) | payer OTHER, SELFPAY | PROVIDERS: PCP Internal Medicine; Visit Provider Surgery | DX: L72.3 Sebaceous cyst (principal) | CPT/HCPCS: 99212 ==

== ENCOUNTER 2022-09-07 10:26 | Outpatient (REF) | payer OTHER, SELFPAY ==
[2022-09-07 11:58] LABS: Hemoglobin 7.5 g/dl (12.0-16.0); Imm Gran Pct Auto 0.8 % (0.0-0.4); MANUAL DIFF FLAG SCAN; Monocytes Absolute Auto 0.4 X10*3/uL (0.1-1.2); SCAN SMEAR FLAG 1
[2022-09-07 12:00] LABS: Basophils Percent Auto 0.4 % (0-2); Eosinophils Absolute Auto 0.2 X10*3/uL (0.0-0.4); Eosinophils Percent Auto 1.4 % (0-4); Hematocrit 27.9 % (37.0-47.0); Imm Gran Abs Auto 0.09 X10*3/uL (0.00-0.03); Lymphocytes Absolute Auto 3.8 X10*3/uL (1.2-4.9); Lymphocytes Percent Auto 35.6 % (20-40); Mean Corpuscular HGB Conc 26.9 g/dl (31.0-35.0); NRBC Pct Auto 0.3 /100WBC (0.0-0.2); Neutrophils Absolute Auto 6.1 x10*3/uL (2.0-8.3); Neutrophils Percent Auto 57.8 % (45-73); Platelet Count 359 X10*3/uL (160-400); Red Blood Count 5.01 X10*6/uL (4.20-5.50); Red Cell Distribution Width 27.5 % (11.0-16.0); White Blood Count 10.6 X10*3/uL (4.8-10.8)
[2022-09-07 12:03] LABS: Mean Corpuscular Volume 55.7 fL (80.0-98.0); PLT ABN DIST 1
[2022-09-07 12:49] LABS: SLIDE REVIEW VERIFIED
[2022-09-07 12:53] LABS: Alanine Aminotransferase 10 U/L (0-31); Albumin Level 3.9 g/dL (3.5-5.0); Alkaline Phosphatase 105 U/L (39-117); Anion Gap 14 (12-20); Aspartate Amino Transferase 11 U/L (5-31); Bilirubin Total 0.5 mg/dL (0.0-1.0); Blood Urea Nitrogen 10 mg/dL (9-16); Calcium 9.1 mg/dL (8.4-10.2); Carbon Dioxide 22 mmol/L (22-29); Chloride 107 mmol/L (96-108); Cholesterol 133 mg/dL; Estimated Glomerular Filt Rate > 60; Glucose Fasting 95 mg/dL (60-99); HDL Cholesterol 37 mg/dL; LDL Cholesterol Calculated 80 mg/dl; Potassium 3.6 mmol/L (3.3-5.1); Sodium 139 mmol/L (135-145); Total Protein 7.4 g/dL (6.5-8.0); Triglycerides 81 mg/dL
[2022-09-07 12:59] LABS: Thyroid Stimulating Hormone 0.81 uIU/mL (0.32-4.0)
== END 2022-09-07 10:27 | disposition home or self-care (01) ==
LOC: HO.LAB 10:26
PROVIDERS: PCP Internal Medicine; Visit Provider Internal Medicine
DX: N28.9 Disorder of kidney and ureter, unspecified (principal); D64.9 Anemia, unspecified; E78.5 Hyperlipidemia, unspecified; E03.9 Hypothyroidism, unspecified
CPT/HCPCS: 36415; 80053; 80061; 84443; 85025

== ENCOUNTER 2022-09-29 09:27 | Outpatient (AMB) | payer OTHER, SELFPAY ==
--- NOTE | 2022-09-29 09:30 | A.OFFVIS_ITS ---
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 No complaints. Last Pap/HPV was negative in 06/02 Last Mammogram was BI-RADS 3 in 03/05 [facility] Medical History Anxiety Hx of menorrhagia Sinusitis Surgical History History of excision of mass (07/01/22) Hx of section Hx of tubal ligation Family History Mother HTN (hypertension) Diabetes Mental health disorder Substance use disorder Social History Housing: Apartment Alcohol intake: current Alcohol intake frequency: does not drink Patient Tobacco Use Status: Current everyday Tobacco user Tobacco use type: Cigarette Cigarette Packs Per Day: 1 e-Cigarette/Vaping Use: Never Used Second Hand Smoke Exposure: No Substance Use Type: Marijuana service: No Current occupational status: employed and unemployed Current occupation: [employer] Gender identity: Female Cognitive needs: No Hearing needs: No Vision needs: No Female Reproductive History Menstrual Age of Menarche: 15 Date of last menstrual period: 09/16/22 Total pregnancies: 5 Number of Living Children: 4 Ab spontaneous: 1 Date of last pap smear: 06/03/20 (WNL) Review of Systems Const All systems reviewed & are unremarkable except as noted in HPI and below Card Reports as per HPI Resp Reports as per HPI GI Reports as per HPI and Reports no additional complaints Reports as per HPI Physical Exam Const General: cooperative, healthy appearing and comfortable Chest Chest palpation & inspection: normal inspection of the chest and normal palpation of entire chest wall Breast/axilla inspection: normal inspection of the breasts and normal inspection of the axillae Breast/axilla palpation: normal palpation of the breasts, normal palpation of the axillae and no axillary lymphadenopathy Resp Effort & Inspection: normal respiratory effort Auscultation: clear to auscultation bilaterally Percussion: percussion normal Cardio Palpation: normal PMI Rate: regular rate Rhythm: regular rhythm Heart sounds: no murmurs and no rubs Peripheral pulses: Peripheral pulses 2+ throughout GI Inspection: Yes normal to inspection Palpation (GI): Soft to palpation, nontender, no guarding, not rigid and No hepatosplenomegaly present Percussion: Yes normal to percussion Auscultation: normal bowel sounds Rectal Exam - Female: deferred General: Yes bladder normal to palpation External Female Exam: No lesion Speculum Exam - Vagina: normal appearance of the vagina, normal palpation, normal vaginal discharge and not erythematous Speculum Exam - Cervix: normal appearance of the cervix and normal palpation Bimanual exam- vagina & uterus: normal bimanual exam, normal palpation, uterine size normal, bladder normal to palpation, consistency normal and normal palpation Bimanual Exam- Adnexa, other: normal adnexae, no masses and no tenderness Assessment & Plan Assessment & Plan (1) Well woman exam: Code(s): Z01.419 - Encounter for gynecological examination (general) (routine) without abnormal findings Plan: Cotesting not indicated this year, instructions given the patient to schedule her next screening Mammogram. Counseled the patient about the recommended dietary allowance of 1000 mg of Calcium & 600 IU of vitamin D. The patient was instructed to perform monthly self-breast exams and to schedule an annual exam in a year; All questions answered and the patient verbalized understanding. Instructed the patient to schedule annual exam in a year Coding Level of Care Code Est Pt Prev Care 40-64y(95991) Diagnoses Well woman exam Z01.419
== END 2022-09-29 10:04 | disposition home or self-care (01) ==
LOC: HO.HWS 09:27
PROVIDERS: PCP Internal Medicine; Visit Provider Obstetrics & Gynecology
DX: Z01.419 Encounter for gynecological examination (general) (routine) without abnormal findings (principal)
CPT/HCPCS: 99396

== ENCOUNTER → 2022-09-29 09:27 | Outpatient (BNVA) | payer OTHER, SELFPAY | PROVIDERS: PCP Internal Medicine; Visit Provider Obstetrics & Gynecology ==

== ENCOUNTER 2022-11-02 13:20 | Outpatient (AMB) | payer OTHER, SELFPAY ==
[2022-11-02 13:22] VITALS: BP 138/86; PULSE 120; O2SAT 100; BMI 45.6
--- NOTE | 2022-11-02 13:22 | MHC.PC.OV ---
Vital Signs 11/02/22 13:22 Height 5 ft 5 in Weight 274 lb BMI 45.6 BP 138/86 Blood Pressure Location Lt brachial Position Sitting Pulse 120 H Pulse Source Pulse Oximeter Temp Source Skin Pulse Oximetry (%) 100 Oxygen Delivery Method Room Air Intake Visit Reasons: Rt side pelvic pain Intake Note: pt states right pelvic pain X1week Special Certificate Dictator Required: No Allergies No Known Allergies Allergy (Verified 11/02/22 13:27) Tobacco use date assessed: 11/02/22 Dental Screening Dental Screen Date: 11/02/22 Did you have a dental visit in the last 12 months?: Yes Did you have a dental problem in the last 6 months where you did not have access to dental care?: No Was dental information given to patient?: Patient has dentist HPI Rt side pelvic pain HPI Details right lower pelvic pain for a week; MPs nl PFSH Medical History Anxiety Hx of menorrhagia Sinusitis Surgical History History of excision of mass (07/01/22) Hx of section Hx of tubal ligation Family History Mother HTN (hypertension) Diabetes Mental health disorder Substance use disorder Social History Housing: Apartment Alcohol intake: current Alcohol intake frequency: does not drink Patient Tobacco Use Status: Current everyday Tobacco user Tobacco use type: Cigarette Cigarette Packs Per Day: 1 e-Cigarette/Vaping Use: Never Used Second Hand Smoke Exposure: No Substance Use Type: Marijuana service: No Current occupational status: employed and unemployed Current occupation: [employer] Gender identity: Female Cognitive needs: No Hearing needs: No Vision needs: No Female Reproductive History Menstrual Age of Menarche: 15 Questionnaire PHQ-9 Over the last 2 weeks, how often have you been bothered by any of the following problems? Depression Screening Interpretation: Positive Depression Screening Follow-up: Existing condition and In treatment Source: Developed by Drs. Luis Ferrari, Yasmeen Bryan, Laurent Brumfield and colleagues, with an educational emilee from [employer] [place]. Thrive Questionnaire Date Thrive assessed: 06/11/22 AUDIT C Alcohol Use Questionnaire (AUDIT-C) 1. How often do you have a drink containing alcohol?: Never 3. How often do you have six or more drinks on one occasion?: Never Total Score: 0 Score Reviewed/Action Taken: Yes COLEMAN-7 AMB Questionnaire COLEMAN-7 Date COLEMAN - 7 assessed: 09/07/22 (existing condition, pt is taking medication ) Source: Developed by Drs. Luis Ferrari, Yasmeen Bryan, Laurent Brumfield and colleagues, with an educational emilee from [employer] [place]. Review of Systems Const Denies chills, Denies headache(s) and Denies weight loss ENT Denies headache(s) Card Denies chest pain, Denies syncope, Denies irregular heart rhythm and Denies dyspnea Resp Denies chest congestion, Denies cough and Denies dyspnea GI Denies abdominal pain, Denies change in stool character, Denies nausea and Denies vomiting Musc Denies deformity and Denies joint swelling Neuro Denies syncope and Denies headache(s) Physical exam (Primary Care) Vital Signs: Last Vital Signs Pulse 120 H 11/02/22 13:22 BP 138/86 11/02/22 13:22 Pulse Ox 100 11/02/22 13:22 Oxygen Delivery Method Room Air 11/02/22 13:22 BMI result Body Mass Index 45.6 morbid obesity BMI Assessment/Plan discussion: High BMI High, discussed plan: lifestyle, weight reduction, dietary and physical activity Tobacco/Smoking Status: Tobacco use Status Tobacco use date assessed 11/02/22 11/02/22 13:29 Patient Tobacco Use Status Current everyday Tobacco 11/02/22 13:29 Tobacco use type Cigarette 11/02/22 13:29 e-Cigarette/Vaping Use Never Used 11/02/22 13:29 Are you ready to quit: No Number of minutes spent counselin CPT code: 79087 - 4-10 Minutes Depression Screening Interpretation: Positive Depression Screening Follow-up: Existing condition and In treatment Thrive Assessment: Date of Thrive Assessment Date Thrive assessed 06/11/22 11/02/22 13:29 Const General: cooperative, healthy appearing and no acute distress Orientation/consciousness: oriented to person, oriented to place and oriented to time HENMT Head: Yes normal to inspection, Yes normocephalic and Yes atraumatic Mouth: Normal oral and palatal mucosa present and tongue normal Throat: Yes posterior oropharynx normal and Yes uvula midline Eyes General: appearance normal, both eyes and all related structures Neck Neck: Yes normal visual inspection, Yes full ROM and Yes no lymphadenopathy Thyroid: Thyroid normal Carotids: normal carotid upstroke Chest Chest palpation & inspection: normal inspection of the chest Resp Effort & Inspection: normal respiratory effort and able to speak in complete sentences Auscultation: clear to auscultation bilaterally Cardio Jugular venous distension: no JVD Palpation: normal PMI Rate: regular rate Rhythm: regular rhythm Heart sounds: S1 normal heart sound present and S2 normal heart sound present GI Inspection: Yes normal to inspection Palpation (GI): Soft to palpation and No hepatosplenomegaly present Auscultation: normal bowel sounds General: Yes no CVA tenderness Back/Spine/Pelvis Back: no CVA tenderness Skin General skin exam: no rashes or lesions noted Neuro General: oriented to person, oriented to place and oriented to time Extrem General: Yes normal to inspection and Yes full ROM Assessment and Plan Assessment & Plan (1) Pelvic pain: Code(s): R10.2 - Pelvic and perineal pain Plan: us ordered Orders: Orders US pelvic complete 11/02/22 R10.2 - Pelvic and perineal pain US pelvic and transvaginal 11/02/22 R10.2 - Pelvic and perineal pain Medications: New tramadol 50 mg PO Q8H PRN 20 tabs 0RF pain 7 days Coding Level of Care Code Est Pt Level 3 (21711) Diagnoses Pelvic pain R10.2 Additional Codes Vital Signs *Quality* - CPT code: 01355 - 4-10 Minutes ([id number])
== END 2022-11-02 13:38 | disposition home or self-care (01) ==
PROVIDERS: PCP Internal Medicine; Visit Provider Internal Medicine
DX: R10.2 Pelvic and perineal pain (principal)
CPT/HCPCS: 99213

== ENCOUNTER 2022-11-02 14:14 | Outpatient (REF) | payer OTHER, SELFPAY ==
--- NOTE | ~2022-11-02 | US_ITS ---
EXAMINATION: US PELVIS CLINICAL INFORMATION: Pain COMPARISON: Previous pelvic ultrasound July 2021 TECHNIQUE: Ultrasound of the pelvis is performed using both transabdominal and transvaginal transducers along with Doppler. Transvaginal imaging is performed due to inadequate visualization transabdominally. FINDINGS: The uterus is anteverted and measures 10 x 5 x 6 cm in dimension. No focal uterine lesion is seen. Endometrial thickness is slightly increased measuring 1.6 to 1.8 cm. This is decreased from 2.2 cm July 2021 exam. No focal uterine lesion is seen. There is a small amount of fluid in the endocervical canal. Small nabothian cysts in the cervix. The ovaries are seen transabdominally only and are unremarkable. The right ovary measures 4.2 x 1.8 x 2.8 cm. There is a 2.3 x 1.6 x 1.9 cm simple cyst or dominant follicle. No imaging follow-up recommended. The left ovary measures 4.2 x 1.8 x 2.5 cm. No focal left ovarian lesion. No fluid in the pelvis. US/US pelvic and transvaginal IMPRESSION: Slightly thickened endometrium measuring 1.6 to 1.8 cm. This is decreased from 2.2 cm on July 2021 exam. Otherwise unremarkable exam.
== END 2022-11-02 14:15 | disposition home or self-care (01) ==
LOC: HO.US 14:14
PROVIDERS: PCP Internal Medicine; Visit Provider Internal Medicine
DX: R10.2 Pelvic and perineal pain (principal)
CPT/HCPCS: 76830; 76856

== ENCOUNTER 2023-03-29 08:47 | Outpatient (REF) | payer OTHER, SELFPAY ==
--- NOTE | ~2023-03-29 | MM_ITS ---
EXAMINATION: MM DIAGNOSTIC DIGITAL BREAST TOMOSYNTHESIS, BILATERAL CLINICAL INFORMATION: 1 year follow-up bilateral small nodular asymmetries both breasts. Patient also due for routine screening. COMPARISON: Mammography: 03/10/2022, 09/01/2021 (baseline). TECHNIQUE: Digital breast tomosynthesis is performed in both the craniocaudal and mediolateral oblique views along with computer-aided detection (CAD). Synthesized 2D images are generated from the tomosynthesis. In addition, additional bilateral CC, bilateral full-field MLO images were acquired. FINDINGS: There are scattered areas of fibroglandular density (ACR BI-RADS breast composition Category b). Stable smooth benign appearing 0.5 cm oval nodule posterior 9:00 position in the right breast. Left breast has 2 stable and unchanged limited benign-appearing nodules in the central breast slightly inner and slightly lateral on CC view, under 1 cm, most likely intramammary lymph nodes. There has been no interval change in the bilateral parenchymal pattern. There are no suspicious masses, suspicious grouped calcifications, or areas of architectural distortion in either breast. No axillary or skin abnormalities. MM/MM tomosynthesis diagnostic BI IMPRESSION: No evidence of malignancy in either breast. There is no interval change in the examination since the prior study. There are benign small oval nodules in both breasts. These are unchanged. Recommend the patient return to routine annual screening. ASSESSMENT: BI-RADS BI-RADS 2 - Benign Findings RECOMMENDATION: 1 year F/U Results were provided to the patient at time of visit by the technologist. This patient's information was entered into a reminder system with a target due date for their next mammogram.
== END 2023-03-29 08:48 | disposition home or self-care (01) ==
LOC: HO.MAMMO 08:47
PROVIDERS: PCP Internal Medicine; Visit Provider Internal Medicine
DX: N64.89 Other specified disorders of breast (principal)
CPT/HCPCS: 77062; 77066

== ENCOUNTER → 2023-03-29 09:00 | Outpatient (BNV) | payer OTHER, SELFPAY | PROVIDERS: PCP Internal Medicine; Visit Provider Radiology Diagnostic Radiology | DX: N64.89 Other specified disorders of breast (principal) | CPT/HCPCS: 77062; 77066 ==

== ENCOUNTER 2023-05-24 08:36 | Outpatient (AMB) | payer OTHER, SELFPAY ==
--- NOTE | 2023-05-24 08:51 | MHC.OFFVIS ---
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 PFSH Medical History Hx of menorrhagia Sinusitis Anxiety Surgical History History of excision of mass (07/01/22) Hx of section Hx of tubal ligation Family History Mother HTN (hypertension) Diabetes Mental health disorder Substance use disorder Social History Housing: Apartment Alcohol intake: current Alcohol intake frequency: does not drink Patient Tobacco Use Status: Current everyday Tobacco user Tobacco use type: Cigarette Cigarette Packs Per Day: 1 e-Cigarette/Vaping Use: Never Used Second Hand Smoke Exposure: No Substance Use Type: Marijuana service: No Current occupational status: employed and unemployed Current occupation: [employer] Gender identity: Female Cognitive needs: No Hearing needs: No Vision needs: No Female Reproductive History Menstrual Age of Menarche: 15 Duration of menses: 6-7 days Date of last menstrual period: 05/15/23 control method: permanent sterilization Total pregnancies: 5 Full term: 4 Number of Living Children: 4 Ab spontaneous: 1 Date of last pap smear: 06/04/20 (negative) Review of Systems Const All systems reviewed & are unremarkable except as noted in HPI and below Physical Exam Vital Signs: BMI result Body Mass Index 45.9 General: Yes no CVA tenderness External Female Exam: normal external appearance and normal appearance of the urethra Speculum Exam - Vagina: normal appearance of the vagina, normal palpation, no lesions and no masses Speculum Exam - Cervix: normal appearance of the cervix, normal palpation, no lesions, no masses and nontender Bimanual exam- vagina & uterus: normal bimanual exam, normal palpation, uterine size normal, normal palpation, uterine shape normal, No Cervical tenderness present and non-tender Bimanual Exam- Adnexa, other: normal adnexae Back/Spine/Pelvis Back: no CVA tenderness Assessment & Plan Assessment & Plan (1) Pain in pelvis: Code(s): R10.2 - Pelvic and perineal pain Plan: Urine test done in the office was negative. GC and chlamydia taken and pelvic ultrasound ordered. Discussed with the patient the differential diagnosis of pelvic pain including but not limited to adnexal, uterine masses, pelvic infections (PID), GI the (Irritable bowel syndrome, diverticulitis, others), musculoskeletal, myofascial pain abdominal wall , adhesions, endometriosis, psychological and others causes. Will check results and treat accordingly. All questions answered, the patient verbalized understanding. Instructed the patient to schedule follow-up appointment in 2 weeks (2) Microscopic hematuria: Code(s): R31.29 - Other microscopic hematuria Plan: Urine dip done in the office showed +3 microscopic hematuria. Discussed with the patient the possible causes of microscopic hematuria including but not limited to: interstitial cystitis, polyps, stones, masses, urethral inflammatory processes and others. The workup included Urine Culture and will repeat urine dip next visit, if persistent microscopic hematuria with negative urine culture will proceed with CT scan of abdomen pelvis. All questions answered and the patient verbalized understanding. Orders: Orders US pelvic and transvaginal Today R10.2 - Pelvic and perineal pain Coding Level of Care Code Est Pt Level 3 (32146) Diagnoses Pain in pelvis R10.2 Microscopic hematuria R31.29
[2023-05-24 08:53] VITALS: BP 132/96; BMI 45.9
== END 2023-05-24 10:40 | disposition home or self-care (01) ==
LOC: HO.HWS 08:36
PROVIDERS: PCP Internal Medicine; Visit Provider Obstetrics & Gynecology
DX: R10.2 Pelvic and perineal pain (principal); R31.29 Other microscopic hematuria; Z32.02 Encounter for pregnancy test, result negative
CPT/HCPCS: 99213

== ENCOUNTER 2023-05-24 08:36 | Outpatient (REF) | payer OTHER, SELFPAY ==
[2023-05-24 16:30] LABS: CT PCR NOT DETECTED (Not Detect.); NG PCR NOT DETECTED (Not Detect.)
== END 2023-05-24 08:37 | disposition home or self-care (01) ==
LOC: HO.LNP 08:36
PROVIDERS: PCP Internal Medicine; Visit Provider Obstetrics & Gynecology
DX: R31.29 Other microscopic hematuria (principal); R10.2 Pelvic and perineal pain; Z32.02 Encounter for pregnancy test, result negative
CPT/HCPCS: 0353U; 81003; 81025; 87086; 99212

== ENCOUNTER 2023-06-04 10:59 | Outpatient (REF) | payer OTHER, SELFPAY ==
--- NOTE | ~2023-06-04 | US_ITS ---
EXAMINATION: US PELVIS CLINICAL INFORMATION: Pelvic perineal pain bilateral. Unknown last menstrual period. COMPARISON: None available. TECHNIQUE: Ultrasound of the pelvis is performed using both transabdominal and transvaginal transducers along with Doppler. Transvaginal imaging is performed due to inadequate visualization transabdominally. FINDINGS: The uterus is anteverted and measures 11.7 x 5.7 x 7.1 cm. No discrete fibroid appreciated. Limited visualization due to bowel gas. Endometrial thickness on transvaginal ultrasound images is 18.4 mm and up to 20 mm on transabdominal ultrasound images. Previous endometrial thickness 18 mm on 11/02/2022. No significant free fluid. Visualization of the bilateral ovaries is limited due to location and the ovaries were seen only on transabdominal ultrasound images, limiting evaluation. Right ovary measures 4.2 x 1.6 x 2.8 cm, volume 9.6 mL. Left ovary measures 4.2 x 2.2 x 3.3 cm, volume 15.8 mL. The bilateral ovaries are grossly unremarkable. US/US pelvic and transvaginal IMPRESSION: 1. Endometrial thickness on transvaginal ultrasound images is 18.4 mm and up to 20 mm on transabdominal ultrasound images. Previous endometrial thickness 18 mm on 11/02/2022. Correlation with clinical exam and menstrual history recommended to determine further management. 2. No discrete fibroid appreciated. Limited visualization due to bowel gas. 3. Visualization of the bilateral ovaries is limited due to location and the ovaries were seen only on transabdominal ultrasound images, limiting visualization. The bilateral ovaries are grossly unremarkable. 4. No significant free fluid.
== END 2023-06-04 11:00 | disposition home or self-care (01) ==
LOC: HO.US 10:59
PROVIDERS: PCP Internal Medicine; Visit Provider Obstetrics & Gynecology
DX: R10.2 Pelvic and perineal pain (principal)
CPT/HCPCS: 76830; 76856

== ENCOUNTER 2023-06-22 08:06 | Outpatient (REF) | payer OTHER, SELFPAY ==
[2023-06-22 10:00] LABS: Hematocrit 24.3 % (37.0-47.0); Mean Corpuscular HGB Conc 27.2 g/dl (31.0-35.0); Mean Corpuscular Volume 55.2 fL (80.0-98.0); NRBC Pct Auto 0.3 /100WBC (0.0-0.2); PLT CLUMP 1; Red Cell Distribution Width 28.3 % (11.0-16.0)
[2023-06-22 10:05] LABS: Hemoglobin 6.6 g/dl (12.0-16.0)
[2023-06-22 11:27] LABS: Platelet Count 362 X10*3/uL (160-400); White Blood Count 8.6 X10*3/uL (4.8-10.8)
[2023-06-22 11:28] LABS: HCG Quantitative < 2 mIU/mL; TSH reflex Free T4 0.66 uIU/mL (0.32-4.0)
[2023-06-23 06:49] LABS: Prolactin 4.2 ng/mL
== END 2023-06-22 08:07 | disposition home or self-care (01) ==
LOC: HO.LAB 08:06
PROVIDERS: PCP Internal Medicine; Visit Provider Obstetrics & Gynecology
DX: N93.9 Abnormal uterine and vaginal bleeding, unspecified (principal); R10.2 Pelvic and perineal pain; R31.29 Other microscopic hematuria
CPT/HCPCS: 36415; 81003; 84146; 84443; 84702; 85027; 99212

== ENCOUNTER 2023-06-22 08:06 | Outpatient (AMB) | payer OTHER, SELFPAY ==
[2023-06-22 08:14] VITALS: BP 136/74
--- NOTE | 2023-06-22 08:14 | A.OFFVIS_ITS ---
Intake Vital Signs 06/22/23 08:14 Height 5 ft 5 in BP 136/74 Intake Visit Reasons: US follow up Information Interpreted: clinical only Community Service Specialist: Community Service Specialist Present Allergies No Known Allergies Allergy (Verified 06/22/23 08:15) Is last menstrual period known: Yes Last menstrual period: 06/16/23 Do you need a note to return to daycare/school/sports/work: No HPI HPI Comments History of Present Illness Details Presenting for follow-up ultrasound regarding pelvic pain and repeat urine dip. Last visit urine test was negative in the office. Urine dip showed microscopic hematuria. Pelvic ultrasound done recently showed the following: The uterus is anteverted and measures 11.7 x 5.7 x 7.1 cm. No discrete fibroid appreciated. Limited visualization due to bowel gas. Endometrial thickness on transvaginal ultrasound images is 18.4 mm and up to 20 mm on transabdominal ultrasound images. Previous endometrial thickness 18 mm on 11/02/2022. No significant free fluid. Visualization of the bilateral ovaries is limited due to location and the ovaries were seen only on transabdominal ultrasound images, limiting evaluation. Right ovary measures 4.2 x 1.6 x 2.8 cm, volume 9.6 mL. Left ovary measures 4.2 x 2.2 x 3.3 cm, volume 15.8 mL. The bilateral ovaries are grossly unremarkable. [facility] Medical History Hx of menorrhagia Sinusitis Anxiety Surgical History History of excision of mass (07/01/22) Hx of section Hx of tubal ligation Family History Mother HTN (hypertension) Diabetes Mental health disorder Substance use disorder Social History Housing: Apartment Alcohol intake: current Alcohol intake frequency: does not drink Patient Tobacco Use Status: Current everyday Tobacco user Tobacco use type: Cigarette Cigarette Packs Per Day: 1 e-Cigarette/Vaping Use: Never Used Second Hand Smoke Exposure: No Substance Use Type: Marijuana service: No Current occupational status: employed and unemployed Current occupation: [employer] Gender identity: Female Cognitive needs: No Hearing needs: No Vision needs: No Female Reproductive History Menstrual Age of Menarche: 15 Duration of menses: 6-7 days Date of last menstrual period: 06/16/23 control method: permanent sterilization Total pregnancies: 5 Full term: 4 Review of Systems Const All systems reviewed & are unremarkable except as noted in HPI and below Reports as per HPI and Reports no additional complaints GI Reports no additional complaints Reports no additional complaints Physical Exam Vital Signs: Last Vital Signs BP 136/74 06/22/23 08:14 Results AMB Urinalysis, Automated UA Leukoctes 0 Areli/uL Last Edit by Aramis Novoa CMA on 06/22/23 08:30 UA Nitrite Negative Last Edit by Aramis Novoa CMA on 06/22/23 08:30 UA Urobilinogen 0 mg/dL Last Edit by Aramis Novoa CMA on 06/22/23 08:30 UA Protein 0 mg/dL Last Edit by Aramis Novoa CMA on 06/22/23 08:30 UA pH 7.5 Last Edit by Aramis Novoa CMA on 06/22/23 08:30 UA Blood 2 Boni/uL Last Edit by Aramis Novoa CMA on 06/22/23 08:30 2+ Aramis Novoa 06/22/23 08:30 UA Specific [place] 1.015 Last Edit by Aramis Novoa CMA on 06/22/23 08: 30 UA Ketone Negative Last Edit by Aramis Nvooa CMA on 06/22/23 08:30 UA Bilirubin 0 mg/dL Last Edit by Aramis Novoa CMA on 06/22/23 08:30 UA Glucose 0 mg/dL Last Edit by Aramis Novoa CMA on 06/22/23 08:30 Assessment & Plan Assessment & Plan (1) Pain in pelvis: Code(s): R10.2 - Pelvic and perineal pain Plan: Discussed with the patient the results the pelvic pain including urine dip and test done in the office last visit were both negative and pelvic ultrasound findings, will refer to Urology after CT scan for further workup as a cause of pelvic pain and microscopic hematuria (2) Microscopic hematuria: Code(s): R31.29 - Other microscopic hematuria Plan: Discussed with the patient the possible causes of microscopic hematuria in cluding but not limited to: interstitial cystitis, polyps, stones, masses, urethral inflammatory processes and others. The workup included Urine Culture which was negative, CT abdomen/pelvis and urology referral. All questions answered and the patient verbalized understanding. (3) Abnormal uterine bleeding (AUB): Comment: Thickened endometrium by ultrasound Code(s): N93.9 - Abnormal uterine and vaginal bleeding, unspecified Plan: GC and chlamydia taken CBC, TSH, prolactin, HCG ordered. Discussed with the patient the different causes of abnormal bleeding including thyroid disorders, uterine and ovarian pathology, endometrial hyperplasia, carcinoma and other potential causes. Discussed with the patient the work up including CBC (to r/o anemia), TSH, prolactin, pelvic Ultrasound, endometrial biopsy to r/o endometrial pathology. All questions answered and the patient verbalized understanding. Instructed the patient to schedule an appointment for an endometrial biopsy in 2 weeks. Orders: Orders AMB Urinalysis Automated Today R10.2 - Pelvic and perineal pain TSH reflex Free T4 Today N93.9 - Abnormal uterine and vaginal bleeding, unspecified Prolactin Today N93.9 - Abnormal uterine and vaginal bleeding, unspecified Complete Blood Count no Diff Today N93.9 - Abnormal uterine and vaginal bleeding, unspecified HCG Quantitative Today N93.9 - Abnormal uterine and vaginal bleeding, unspecified CT abdomen pelvis wo/w IV con Today R31.29 - Other microscopic hematuria Referrals Urology Referral R31.29 - Other microscopic hematuria Coding Level of Care Code Est Pt Level 3 (60894) Diagnoses Pain in pelvis R10.2 Microscopic hematuria R31.29 Abnormal uterine bleeding (AUB) N93.9
== END 2023-06-22 08:49 | disposition home or self-care (01) ==
PROVIDERS: PCP Internal Medicine; Visit Provider Obstetrics & Gynecology
DX: R10.2 Pelvic and perineal pain (principal); R31.29 Other microscopic hematuria; N93.9 Abnormal uterine and vaginal bleeding, unspecified
CPT/HCPCS: 99213

== ENCOUNTER 2023-06-22 11:12 | Emergency (ER) | payer OTHER, SELFPAY ==
[2023-06-22] VITALS (12 sets, daily range): BP systolic 132–187; BP diastolic 72–100; PULSE 86–116; RESP 13–24; TEMP 36.5–37.1; O2SAT 97–99; BMI 48.2
--- NOTE | 2023-06-22 11:43 | ED.RECABL ---
HPI - Recheck/Abnormal Lab/Rx General Chief Complaint: Recheck/Abnormal Lab/Rx Stated Complaint: Needs blood transfusion Time Seen by Provider: 06/22/23 12:25 Source: patient and old records reviewed Mode of arrival: ambulatory Limitations: no limitations History of Present Illness HPI narrative: 43 yo female with chronic anemia from heavy vaginal bleeding sent from OB office for drop in her hemoglobin to 6.6 baseline usually mid 7s. She is tired, weak and feels fatigue. She has no chest pain. No sig active bleeding now plan for biopsy and possible IUD tomorrow. complaint: abnormal lab Initial visit (ago): hour(s) (few) Initial visit for: other (vaginal bleeding) Returns today for: called because of abnormal lab/test Description of abnormal result: low Hb Symptoms since prior visit: no new symptoms Context: called for abnormal lab result Associated symptoms: other (fatigue) Related Data Home Medications ?Medication ?Instructions ?Recorded ?Confirmed diazepam 5 mg tablet 5 mg PO BID PRN 05/24/23 fluoxetine 40 mg capsule 40 mg PO DAILY 05/24/23 quetiapine 200 mg tablet 200 mg PO BEDTIME 05/24/23 Allergies Allergy/AdvReac Type Severity Reaction Status Date / Time No Known Allergies Allergy Verified 06/22/23 11:53 Review of Systems Review of Systems: Constitutional : No Fever, No Chills, pos Fatigue ENT/Mouth : No sore throat, No Rhinorrhea Eyes: No Eye Pain, No Swelling, No Redness Cardiovascular : No Chest Pain, No SOB, No Dyspnea on Exertion Respiratory : No Cough, No Sputum Gastrointestinal : No Nausea, No Vomiting, No Diarrhea, No abdominal Pain Genitourinary : No Dysuria, No Urinary Frequency, No Hematuria, Musculoskeletal : No joint pain, No Myalgias, No Joint Swelling Skin : No Skin Lesions, No rash Neuro : pos Weakness, No Numbness, No Dizziness,no Headache Psych : pos Anxiety/Panic, No Depression All other systems reviewed and are negative PMFSH Past Medical History Attestation statement: The following information was validated with the patient. Source: old records reviewed Medical History Hx of menorrhagia Sinusitis Anxiety Surgical History History of excision of mass (07/01/22) Hx of section Hx of tubal ligation Family History Family History Mother HTN (hypertension) Diabetes Mental health disorder Substance use disorder Social History Social History Housing: Apartment Alcohol intake: current Alcohol intake frequency: does not drink Patient Tobacco Use Status: Current everyday Tobacco user Tobacco use type: Cigarette Cigarette Packs Per Day: 1 e-Cigarette/Vaping Use: Never Used Second Hand Smoke Exposure: No Substance Use Type: Marijuana service: No Current occupational status: employed and unemployed Current occupation: [employer] Gender identity: Female Cognitive needs: No Hearing needs: No Vision needs: No Physical Exam Vital Signs: Vital Signs: Last Vital Signs Temp 97.7 F 06/22/23 14:37 Pulse 90 06/22/23 14:37 Resp 18 06/22/23 14:37 BP 154/90 H 06/22/23 14:37 Pulse Ox 99 06/22/23 12:34 O2 Del Method Room Air 06/22/23 12:34 BMI result Body Mass Index 48.2 Appearance: Alert. Oriented X3. No acute distress. Eyes: Pupils equal, round and reactive to light. ENT: Pharynx normal. Neck: Normal inspection. Neck supple. CVS: tachycardic heart rate and rhythm. Pulses normal. Respiratory: No respiratory distress. Breath sounds normal. Abdomen: Soft and nontender. Skin: Skin warm and dry. pale skin color. Normal skin turgor. Extremities: No lower extremity edema. No calf ttp Neuro: Oriented X 3. No motor deficit. No sensory deficit. Course Course Course Narrative: RME:?43 yo female w/ hx of anxiety here for abnormal lab results after recieving a critical lab result from OBGYN (Dr. King) with H&H of 6.6/24.3. Endorses increased fatigue, shortness of breath. Dr. King called as an expect requesting blood transfusion. No hx of blood transfusions. States she is in the middle of an anxiety attack d/t the situation. Takes diazepam for anxiety- did not take this today. labs drawn this morning. type and screen ordered. Full HPI, ROS and PE to be performed by the primary ED provider. Medications Administered Discontinued Medications Generic Name Dose Route Start Last Admin Trade Name Freq PRN Reason Stop Dose Admin Sodium Chloride 100 mls @ 100 mls/hr 06/22/23 12:26 06/22/23 14:22 Ns IV 06/22/23 13:25 100 mls/hr ONCE ONE Administration Lorazepam 1 mg 06/22/23 12:40 06/22/23 13:41 Lorazepam 1 Mg Tablet PO 06/22/23 12:41 1 mg ONCE ONE Administration Medical Decision Making Medical Decision Making [facility] Narrative: 43 yo female with PMH of abnormal uterine bleeding and anemia in past but no prior transfusions who is following closely with [facility] even has uterine biopsy tomorrow comes in with c/o fatigue and weakness found to have hemoglobin at 6.6 lower than her usual baseline of 7s. She has no CP will transfuse 2 units PRBCs and DC out to [facility] office tomorrow for close follow up Differential Diagnosis Differential Diagnoses: The differential diagnosis associated with the presentation includes anemia, abnormal uterine bleeding Admission/Observation Consideration of admission/observation: Escalation of care including admission/observation considered observe and give 2 units of PRBC does not need admission - chronic issue has OB appointment tomorrow Consult Healthcare Provider Management of the patient was discussed with: Mechanical Systems Designer (OBGYN) Lab Data [facility] Lab Attestation statement: I reviewed the patient's lab results. Labs: Lab Results 06/22/23 Range/Units 12:02 Blood Type A Positive Antibody Screen NEGATIVE Crossmatch See Detail External Record Review External record reviewed: Inpatient record Critical Care Time Critical Care Time Critical Care Time: Yes Total Critical Care Time: 45 Attestation: blood transfusions and review of records. I attest to this time spent taking care of the patient Discharge Plan Discharge Clinical Impression: Anemia due to blood loss, chronic Patient Disposition: Home, Self-Care Instructions: Anemia (ED), Blood Transfusion (DC) Additional Instructions: return for worsening symptoms, pain, rash, change in urine color, dizziness, fainting or any other concerns follow up with [facility] tomorrow as planned in the future if you cannot tolerate Iron pills you can ask to be seen and considered for Iron transfusions Prescriptions: No Action diazepam 5 mg tablet 5 mg PO BID PRN fluoxetine 40 mg capsule 40 mg PO DAILY quetiapine 200 mg tablet 200 mg PO BEDTIME Print Language: Ukrainian
[2023-06-22] MEDS: LORazepam 1 MG TABLET PO (13:41)
--- NOTE | 2023-06-22 13:58 | PC.NURSE ---
Pt sent in from Dr. King's office due to low H/H. Pt reports heavy menstrual periods and is currently on her period at this time. Pt reports only pain is lower abd, cramping, 3/10. Pt is alert and oriented, breathing even and unlabored, skin warm and dry. Pt reports chronic hx of heavy menstrual bleeding, unknown cause. Denies having transfusion in the past. Pt reports SOB with exertion for past week and feeling more fatigued. Pt denies any CP. Pt is on awake overnight monitor, NSR, VSS.
--- NOTE | 2023-06-22 14:37 | PC.NURSE ---
RN remained in room during first 15 mins of blood transfusion. Pt did report a brief period of chest tightness and palpitations, infusion was stopped at that time and provider alerted. Vital signs remained stable, lung sounds clear bilat. Pt neg for rash, SOB, abd pain or fever. Provider ordered to continue infusion. Pt tolerating infusion well, reported symptoms went away.
--- NOTE | 2023-06-22 15:05 | PC.NURSE ---
Pt continues to deny any symptoms, tolerating infusion well and vss. Denies CP, SOB or rash.
--- NOTE | 2023-06-22 17:39 | PC.NURSE ---
Second bld transfusion started per order. No reaction sx noted at this time, NSR on tele. Speaking full sentences. Children at bedside.
[2023-06-22] MEDS: Ibuprofen 600 MG TABLET PO (20:19)
--- NOTE | 2023-06-22 20:54 | MHC.EDTECH ---
Assumed care at 20:30
--- NOTE | 2023-06-22 21:29 | PC.NURSE ---
Pt aox4. Second bag of RBC's completed with no complication. Pt tolerated it well. VSS. Discharge instructions reviewed with pt. Pt verbalized understanding.
== END 2023-06-22 21:31 | disposition home or self-care (01) ==
PROVIDERS: Emergency Provider Emergency Medicine; PCP Internal Medicine
DX: D50.0 Iron deficiency anemia secondary to blood loss (chronic) (principal); R53.83 Other fatigue; R06.02 Shortness of breath; R53.1 Weakness
CPT/HCPCS: 36430; 51798; 86850; 86900; 86901; 86923; 96360; 96361; 99285; P9016

== ENCOUNTER 2023-06-23 08:06 | Outpatient (REF) | payer OTHER, SELFPAY | END 2023-06-23 08:07 | disposition home or self-care (01) | LOC: HO.LNP 08:06 | PROVIDERS: PCP Internal Medicine; Visit Provider Obstetrics & Gynecology | DX: N93.9 Abnormal uterine and vaginal bleeding, unspecified (principal); Z30.433 Encounter for removal and reinsertion of intrauterine contraceptive device | CPT/HCPCS: 58100; 58300; 81025; 88305; 99212; J7298 ==

== ENCOUNTER 2023-06-23 08:06 | Outpatient (AMB) | payer OTHER, SELFPAY ==
--- NOTE | 2023-06-23 08:19 | MHC.OFFVIS ---
Intake Vital Signs 06/23/23 08:20 Height 5 ft 5 in Weight 290 lb BMI 48.3 BP 142/84 H Intake Visit Reasons: EMB/Mirena insertion Jacquard Card Lacer Required: No Information Interpreted: non-clinical & clinical Bus Driver/Monitor: Bus Driver/Monitor Present (Aidyn) Allergies No Known Allergies Allergy (Verified 06/23/23 08:20) Post menopausal: No Patient : No HPI HPI Comments History of Present Illness Details The patient is presenting for follow-up to discuss the results of her abnormal uterine bleeding workup and options of treatment. The following workup was done.: H&H= 6.6/24.3 TSH, hCG, GC and chlamydia were negative. Co testing was done in 06/02 was negative. Mammogram was done in 04/07 was BI-RADS 2. Pelvic ultrasound showed the following: The uterus is anteverted and measures 11.7 x 5.7 x 7.1 cm. No discrete fibroid appreciated. Limited visualization due to bowel gas. Endometrial thickness on transvaginal ultrasound images is 18.4 mm and up to 20 mm on transabdominal ultrasound images. Previous endometrial thickness 18 mm on 11/02/2022. No significant free fluid. Visualization of the bilateral ovaries is limited due to location and the ovaries were seen only on transabdominal ultrasound images, limiting evaluation. Right ovary measures 4.2 x 1.6 x 2.8 cm, volume 9.6 mL. Left ovary measures 4.2 x 2.2 x 3.3 cm, volume 15.8 mL. The bilateral ovaries are grossly unremarkable. The patient was sent to emergency room yesterday after critically low H&H and received 2 units of blood transfusion is feeling better, no vaginal bleeding. [facility] Medical History Hx of menorrhagia Sinusitis Anxiety Surgical History History of excision of mass (07/01/22) Hx of section Hx of tubal ligation Family History Mother HTN (hypertension) Diabetes Mental health disorder Substance use disorder Social History Housing: Apartment Alcohol intake: current Alcohol intake frequency: does not drink Patient Tobacco Use Status: Current everyday Tobacco user Tobacco use type: Cigarette Cigarette Packs Per Day: 1 e-Cigarette/Vaping Use: Never Used Second Hand Smoke Exposure: No Substance Use Type: Marijuana service: No Current occupational status: employed and unemployed Current occupation: [email or web address] Gender identity: Female Cognitive needs: No Hearing needs: No Vision needs: No Female Reproductive History Menstrual Age of Menarche: 15 control method: permanent sterilization Date of last pap smear: 05/07/20 (negative) Review of Systems Const All systems reviewed & are unremarkable except as noted in HPI and below Reports as per HPI and Reports no additional complaints GI Reports no additional complaints Reports no additional complaints Office Procedures Endometrial Biopsy Details: The patient was counseled regarding the indication and benefits of endometrial sampling to rule out endometrial pathology including not limited to endometrial hyperplasia or endometrial cancer and others; The alternatives (Either do nothing vs. hysteroscopy D&C) & the risks were discussed with the patient including but not limited: pain, uterine perforation, bleeding, infection, possible injury to bladder, bowel, ureter, possible need for blood transfusion with all its possible risks. The patient verbalized understanding all questions answered and signed consent. Urine test done in the office was negative The patient was placed into the dorsal lithotomy position; a speculum was inserted in the vagina. Using aseptic technique for the procedure, the cervix was cleansed with Betadine. The anterior lip of the cervix was grasped with a single tooth tenaculum. The uterus was sounded to 10 cm with a 4 mm Pipelle was used. Tissues samples were obtained and placed in formalin, in a patient labeled container and sent to the pathology department. At the end of the procedure, there was minimal bleeding noted The patient tolerated the procedure well and was discharged in good condition with the following instructions: Nothing in the vagina until the bleeding stops. No sex until the bleeding stops, to call if any of the following occurs: fever (>100.4), flu-like symptoms, abdominal pain, heavy bleeding, four smelling vaginal discharge. The patient was instructed to schedule a Follow up appointment in 2 weeks to discuss pathology results of the biopsy and treatment options. This note was generated with a voice recognition program. Some errors may have been overlooked during the review of this note. Sometimes these errors may affect the content or meaning of a given sentence. 64043-Hzodookxice Biopsy IUD Insert/Removal Details Details: The patient is presenting for Mirena IUD insertion Urine test was done in the office and was negative; All the contraindications were excluded. The following possible complications were discussed with the patient: Intrauterine , Ectopic , Sepsis, Pelvic Infection, Irregular Bleeding and Amenorrhea, Perforation, Expulsion, Ovarian Cysts, Breast Cancer, The following adverse effects were discussed with the patient: alteration of menstrual bleeding pattern, including: unscheduled uterine bleeding decreased uterine bleeding increased scheduled uterine bleeding female genital tract bleeding ,amenorrhea , genital discharge , vulvovaginitis , breast pain , benign ovarian cyst and associated complications , dysmenorrhea , Gastrointestinal disorders abdominal/pelvic pain, headache/migraine , back pain , acne , depression Alternative options were discussed with the patient including but not limited: control pills, patch, NuvaRing, Depo-medroxyprogesterone acetate, Nexplanon, copper IUD, sterilization, vasectomy, others The procedure was explained in detail to patient , at the end patient signed the informed consent obtained. A no touch technique was used throughout the procedure. A speculum was placed into vagina and cervix was cleaned with betadine). A tenaculum was placed. A plastic sound was advanced through the external and internal os until it reached the fundus of the uterus, the depth was 8 cm. The sound was then withdrawn. The IUD was loaded in a sterile manner and advanced into position. The string was visualized and cut to 3 cm. Tenaculum site hemostatic. All instruments removed from vagina. Patient tolerated the procedure well. NO complications were noted. Patient was instructed to call for fever over 100.4, significant pain unrelieved by Motrin, IUD expulsion, heavy bleeding, or abnormal discharge. In addition, the following clinical considerations were discussed with the patient to call for removal: A stroke or heart attack ,Very severe or migraine headaches ,Unexplained fever ,Yellowing of the skin or whites of the eyes, as these may be signs of serious liver problems , or suspected , Pelvic pain or pain during sex ,HIV positive seroconversion in herself or her partner , Possible exposure to sexually transmitted infections Unusual vaginal discharge or genital sores , severe vaginal bleeding or bleeding that lasts a long time, or if she misses a menstrual period, Inability to feel Mirena's threads Counseled the patient that the IUD does not protect against STI's, recommended use of condoms for the first 7 days post insertion and explained to the patient that condoms are recommended for patients at risk for sexually transmitted infections. Informed the patient that Mirena IUD is FDA approved for 8 years for contraception for 5 years for the treatment of heavy menses Instructed the patient to schedule a Follow up appointment in 4 to 6 weeks following insertion. This note was generated with a voice recognition program. Some errors may have been overlooked during the review of this note. Sometimes these errors may affect the content or meaning of a given sentence. 86465-WTL Insertion Procedure code (CPT) selection complete Office Meds Mirena 21 mcg/24 hours (8 yrs) 52 mg intrauterine device Performing Provider: Carlos King MD Performing Location: [facility] Documented (not given) by: Carlos King MD on 06/23/23 08:37 Dose Route Admin Location Dispensed Lot Number Expiration Date [facility] Biological Science Technician Fish 1 device intrauterine ea Results AMB Test Urine AMB Test Urine Negative Last Edit by MICHELLE Nava on 06/23/23 08:23 Assessment & Plan Assessment & Plan (1) Abnormal uterine bleeding (AUB): Comment: Thickened endometrium by ultrasound Significant anemia Code(s): N93.9 - Abnormal uterine and vaginal bleeding, unspecified Plan: Will repeat CBC after the 2 units of blood transfusion today and start the patient iron sulfate 325 mg p.o. t.i.d. EMB done today, see procedure note Discussed with the patient the results of the work up done and options of treatment including Lysteda, control pills, Mirena IUD, endometrial ablation and hysterectomy. All pros, cons, risks and benefits if each option was discussed with the patient and the patient decided to go ahead with Mirena IUD so a more detailed discussion about it was conducted including mechanism of action, risks (uterine perforation, infection, injury to bladder, bowel, displacement, and others) benefits (hypo menorrhea, amenorrhea, ...). GC/CT were recently taken and were negative and Mirena IUD inserted today an effort to expedite treatment and prevent any further bleeding and recurrence of anemia, see procedure note Orders: Orders Complete Blood Count no Diff Today N93.9 - Abnormal uterine and vaginal bleeding, unspecified AMB IUD Insertion/Removal - Practice Supplied Today N93.9 - Abnormal uterine and vaginal bleeding, unspecified AMB HCG Urine Test Today Z32.02 - Encounter for test, result negative AMB Endometrial Biopsy Today N93.9 - Abnormal uterine and vaginal bleeding, unspecified Medications: New Mirena (levonorgestrel) 1 device intrauterine ONCE 1 ea 0RF IUD insertion NS N93.9 - Abnormal uterine and vaginal bleeding, unspecified Coding Level of Care Code Est Pt Level 3 (47256) Procedure Only Diagnoses Abnormal uterine bleeding (AUB) N93.9 CPT Codes Endometrial Biopsy - CPT: 62064-Dmwvyaqxjfo Biopsy ([id number]) Details - CPT: 29038-UZL Insertion ([id number])
[2023-06-23 08:20] VITALS: BP 142/84; BMI 48.3
== END 2023-06-23 08:54 | disposition home or self-care (01) ==
PROVIDERS: PCP Internal Medicine; Visit Provider Obstetrics & Gynecology
DX: N93.9 Abnormal uterine and vaginal bleeding, unspecified (principal); Z30.430 Encounter for insertion of intrauterine contraceptive device; Z32.02 Encounter for pregnancy test, result negative
CPT/HCPCS: 58100; 58300; 99213

== ENCOUNTER 2023-06-23 08:47 | Outpatient (REF) | payer OTHER, SELFPAY ==
[2023-06-23 09:31] LABS: Hematocrit 28.3 % (37.0-47.0); Hemoglobin 8.1 g/dl (12.0-16.0); Mean Corpuscular HGB Conc 28.6 g/dl (31.0-35.0); Mean Corpuscular Hemoglobin 16.9 pg (27.0-33.0); Mean Corpuscular Volume 59.2 fL (80.0-98.0); NRBC Pct Auto 0.4 /100WBC (0.0-0.2); PLT CLUMP 1; Red Blood Count 4.78 X10*6/uL (4.20-5.50); Red Cell Distribution Width 32.3 % (11.0-16.0)
[2023-06-23 11:33] LABS: Platelet Count 324 X10*3/uL (160-400); White Blood Count 9.7 X10*3/uL (4.8-10.8)
== END 2023-06-23 08:48 | disposition home or self-care (01) ==
LOC: HO.LAB 08:47
PROVIDERS: Visit Provider Obstetrics & Gynecology
DX: N93.9 Abnormal uterine and vaginal bleeding, unspecified (principal); Z32.02 Encounter for pregnancy test, result negative
CPT/HCPCS: 36415; 85027

== ENCOUNTER 2023-07-20 08:27 | Outpatient (AMB) | payer OTHER, SELFPAY ==
--- NOTE | 2023-07-20 08:29 | MHC.OFFVIS ---
Vital Signs 07/20/23 08:37 Height 5 ft 5 in Weight 288 lb 12.889 oz BMI 48.1 BP 144/96 H Intake Visit Reasons: EMB follow up/IUD check Fruit Trimmer Required: No Information Interpreted: non-clinical & clinical Fast Food Assistant Restaurant Manager: Fast Food Assistant Restaurant Manager Present (Kaity MARTINEZ) Accompanied by: Self / Same As Patient Allergies No Known Allergies Allergy (Verified 07/20/23 08:43) Is last menstrual period known: Yes Last menstrual period: 07/13/23 Post menopausal: No Patient : No Do you need a note to return to daycare/school/sports/work: Yes (for surgery on wednesday) HPI Comments Details: The patient is presenting for follow-up after EMB and IUD insertion. The patient is complaining of daily spotting and pelvic cramping, although her heavy menstrual cycles have improved markedly since IUD insertion. On iron sulfate 325 mg p.o. t.i.d. The following workup was done.: H&H= 8.1/28.3 on 06/23/2023 TSH, prolactin, hCG, GC and chlamydia were negative. Endometrial biopsy pathology showed the following: Endometrium, biopsy: Benign inactive endometrium with focal secretory changes, and extensive glandular and stromal breakdown; no atypia or carcinoma. Comment: Some fragments may be derived from benign polyps Co testing was done in 06/02 was negative. Mammogram was done in 04/07 was BI-RADS 2. Pelvic ultrasound showed the following: The uterus is anteverted and measures 11.7 x 5.7 x 7.1 cm. No discrete fibroid appreciated. Limited visualization due to bowel gas. Endometrial thickness on transvaginal ultrasound images is 18.4 mm and up to 20 mm on transabdominal ultrasound images. Previous endometrial thickness 18 mm on 11/02/2022. No significant free fluid. Visualization of the bilateral ovaries is limited due to location and the ovaries were seen only on transabdominal ultrasound images, limiting evaluation. Right ovary measures 4.2 x 1.6 x 2.8 cm, volume 9.6 mL. Left ovary measures 4.2 x 2.2 x 3.3 cm, volume 15.8 mL. The bilateral ovaries are grossly unremarkable. [facility] Medical History Hx of menorrhagia Sinusitis Anxiety Surgical History History of excision of mass (07/01/22) Hx of section Hx of tubal ligation Family History Mother HTN (hypertension) Diabetes Mental health disorder Substance use disorder Social History Housing: Apartment Alcohol intake: current Alcohol intake frequency: does not drink Patient Tobacco Use Status: Current everyday Tobacco user Tobacco use type: Cigarette Cigarette Packs Per Day: 1 e-Cigarette/Vaping Use: Never Used Second Hand Smoke Exposure: No Substance Use Type: Marijuana service: No Current occupational status: employed and unemployed Current occupation: [employer] Gender identity: Female Cognitive needs: No Hearing needs: No Vision needs: No Female Reproductive History Menstrual Age of Menarche: 15 Date of last menstrual period: 07/13/23 Total pregnancies: 2 Full term: 2 Review of Systems Const All systems reviewed & are unremarkable except as noted in HPI and below Card Reports as per HPI and Reports no additional complaints Resp Reports as per HPI and Reports no additional complaints GI Reports as per HPI and Reports no additional complaints Reports as per HPI Physical Exam Vital Signs: Last Vital Signs BP 144/96 H 07/20/23 08:37 BMI result Body Mass Index 48.1 Const General: cooperative, healthy appearing and comfortable Resp Effort & Inspection: normal respiratory effort Auscultation: clear to auscultation bilaterally Percussion: percussion normal Cardio Palpation: normal PMI Rate: regular rate Rhythm: regular rhythm Heart sounds: no murmurs and no rubs Peripheral pulses: Peripheral pulses 2+ throughout GI Inspection: Yes normal to inspection Palpation (GI): Soft to palpation, nontender, no guarding, not rigid and No hepatosplenomegaly present Percussion: Yes normal to percussion Auscultation: normal bowel sounds Rectal Exam - Female: deferred General: Yes no CVA tenderness External Female Exam: normal external appearance and normal appearance of the urethra Speculum Exam - Vagina: normal appearance of the vagina, normal palpation, no lesions and no masses Speculum Exam - Cervix: normal appearance of the cervix, normal palpation, no lesions, no masses, nontender and Other cervical findings present (IUD string in place) Bimanual exam- vagina & uterus: normal bimanual exam, normal palpation, uterine size normal, normal palpation, uterine shape normal, No Cervical tenderness present and non-tender Bimanual Exam- Adnexa, other: normal adnexae Back/Spine/Pelvis Back: no CVA tenderness Results AMB Test Urine AMB Test Urine Negative Last Edit by Kaity Suarez CMA on 07/20/23 08:42 Results Reviewed Results Reviewed: Laboratory Last Values Tst Clinic Negative 07/20/23 08:41 Assessment & Plan Assessment & Plan (1) Abnormal uterine bleeding (AUB): Comment: Endometrial polyp by EMB pathology and thickened endometrium by ultrasound Significant anemia Code(s): N93.9 - Abnormal uterine and vaginal bleeding, unspecified Category: Medical Plan: Instructions given the patient to continue iron sulfate 325 mg p.o. t.i.d. and repeat CBC, order placed. Discussed with the patient the results of the pathology report showing possible fragments of a benign polyp with no evidence for endometrial hyperplasia and/or malignancy, recommended hysteroscopy D&C possible polypectomy with IUD removal and reinsertion. Discussed with the patient the procedure , all benefits and risks including but not limited to inability to complete the procedure , insufficient endometrial tissue for a complete evaluation of the endometrial cavity , bleeding, infection, possible need for blood transfusion with all its risk ( HIV,syphilis, Hepatitis, anaphylaxis shock, others..), injury to bladder, rectum, possible need for laparoscopy/laparotomy or hysterectomy. The following adverse effects of Mirena IUD insertion were discussed with the patient: alteration of menstrual bleeding pattern, including: unscheduled uterine bleeding decreased uterine bleeding increased scheduled uterine bleeding female genital tract bleeding , amenorrhea , genital discharge , vulvovaginitis , breast pain , benign ovarian cyst and associated complications , dysmenorrhea , Gastrointestinal disorders abdominal/pelvic pain, headache/migraine , back pain , acne , depression Alternative options were discussed with the patient including but not limited: control pills, patch, NuvaRing, Depo-medroxyprogesterone acetate, Nexplanon, endometrial ablation and hysterectomy and others The patient verbalized understanding and signed the consent. Instructions given the patient to schedule a 2 week postoperative appointment (2) IUD check up: Code(s): Z30.431 - Encounter for routine checking of intrauterine contraceptive device Category: Medical Plan: UPT done in the office was negative. Discussed with the patient the finding on physical exam, IUD string in place, the patient was reassured. Instructions given to patient to call in case of temperature above 100.4, severe cramping/pelvic pain, abnormal discharge or abnormal uterine bleeding or if she misses her menstrual cycle. All questions answered, the patient verbalized understanding. Orders: Orders AMB HCG Urine Test Today Z32.02 - Encounter for test, result negative Complete Blood Count no Diff Today N93.9 - Abnormal uterine and vaginal bleeding, unspecified Coding Level of Care Code Est Pt Level 3 (63745) Diagnoses Abnormal uterine bleeding (AUB) N93.9 IUD check up Z30.431
[2023-07-20 08:37] VITALS: BP 144/96; BMI 48.1
== END 2023-07-20 09:38 | disposition home or self-care (01) ==
PROVIDERS: PCP Internal Medicine; Visit Provider Obstetrics & Gynecology
DX: N93.9 Abnormal uterine and vaginal bleeding, unspecified (principal); Z30.431 Encounter for routine checking of intrauterine contraceptive device; Z32.02 Encounter for pregnancy test, result negative
CPT/HCPCS: 99213

== ENCOUNTER → 2023-07-20 08:27 | Outpatient (BNVA) | payer OTHER, SELFPAY | PROVIDERS: PCP Internal Medicine; Visit Provider Obstetrics & Gynecology | DX: N93.9 Abnormal uterine and vaginal bleeding, unspecified (principal); D64.9 Anemia, unspecified; Z30.431 Encounter for routine checking of intrauterine contraceptive device | CPT/HCPCS: 81025; 99212 ==

== ENCOUNTER 2023-07-30 09:28 | Day surgery (SDC) | payer OTHER, SELFPAY ==
--- NOTE | 2023-07-27 14:05 | HO.ANESPROP2 ---
Documented by User: Michaela Win NP 07/28/23 13:26 HPI - Anesthesia Eval Consult details Narrative: 43yo F for D&C Hysteroscopy,possible myomectomy,possible polypectomy,Mirena Removal and Insertion BMI 48 PMFSH Active Problems Active Problems: All Active Problems IUD check up (Acute) Endometrial polyp (Acute) Microscopic hematuria (Acute) Pain in pelvis (Acute) Sebaceous cyst (Acute) Breast cyst (Acute) Depression (Acute) Morbid obesity (Acute) Physical exam (Acute) Abnormal uterine bleeding (AUB) (Acute) Well woman exam (Acute) Shoulder pain (Acute) Physical exam (Acute) Neck pain (Acute) Obesity, morbid, BMI 40.0-49.9 (Acute) Cervical cancer screening (Acute) Well woman exam with routine gynecological exam (Acute) Past Medical History Medical History (Updated 07/30/23 @ 10:11 by Sagrario Beach RN) Anemia IUD (intrauterine device) in place Heartburn Arthritis Back pain History of blood transfusion Depression Snores Smoker Hx of menorrhagia Sinusitis Anxiety Family History Family History Mother HTN (hypertension) Diabetes Mental health disorder Substance use disorder Family history of problems with anesthesia: No Surgical History Surgical History History of excision of mass (07/01/22) Hx of section Hx of tubal ligation History of Problems with Anesthesia: No Social History Social History (Updated 07/28/23 @ 15:31 by Margaret Rico RN) Household Members: Children Housing: Apartment Are you a primary farm or ranch animal caretaker to a significant other at home: Yes (children 15 + 17 yrs old) Do you presently have visiting nurse or other home services: No Alcohol intake: current Alcohol intake frequency: does not drink Patient Tobacco Use Status: Current everyday Tobacco user Tobacco use type: Cigarette Cigarettes Per Day: 10 Years Smoked: 7 Smoked in Last 30 Days: Yes Second Hand Smoke Exposure: No Use of substances other than those prescribed or required for medical reasons: No Have you been hit, kicked, punched, or otherwise hurt by someone within the past year? 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 Gender identity: Female Cognitive needs: No Hearing needs: No Vision needs: No Meds Allergies Allergy/AdvReac Type Severity Reaction Status Date / Time No Known Allergies Allergy Verified 07/28/23 13:48 Home Medications ?Medication ?Instructions ?Recorded ?Confirmed ?Last Taken ?Type diazepam 5 mg tablet 5 mg PO BID PRN Anxiety 05/24/23 07/28/23 Unknown History fluoxetine 40 mg capsule 40 mg PO DAILY 05/24/23 07/28/23 Unknown History quetiapine 200 mg tablet 200 mg PO BEDTIME 05/24/23 07/28/23 Unknown History Exam Pertinent Lab Results Pertinent Lab Results: Laboratory Tests 06/23/23 09:05 WBC 9.7 Hgb 8.1 L D Hct 28.3 L Plt Count 324 Assessment and Plan Assessment Anesthesia Assessment: Chart Reviewed Final Anesthetic Review Family History of Problems with Anesthesia: No History of Problems with Anesthesia: No Documented by User: Kaia Dunaway MD 07/30/23 10:49 PMFSH Past Medical History Medical History (Updated 07/30/23 @ 10:11 by Sagrario Beach RN) Anemia IUD (intrauterine device) in place Heartburn Arthritis Back pain History of blood transfusion Depression Snores Smoker Hx of menorrhagia Sinusitis Anxiety Family History Family History Mother HTN (hypertension) Diabetes Mental health disorder Substance use disorder Surgical History Surgical History History of excision of mass (07/01/22) Hx of section Hx of tubal ligation Social History Social History (Updated 07/28/23 @ 15:31 by Margaret Rico RN) Household Members: Children Housing: Apartment Are you a primary farm or ranch animal caretaker to a significant other at home: Yes (children 15 + 17 yrs old) Do you presently have visiting nurse or other home services: No Alcohol intake: current Alcohol intake frequency: does not drink Patient Tobacco Use Status: Current everyday Tobacco user Tobacco use type: Cigarette Cigarettes Per Day: 10 Years Smoked: 7 Smoked in Last 30 Days: Yes Second Hand Smoke Exposure: No Use of substances other than those prescribed or required for medical reasons: No Have you been hit, kicked, punched, or otherwise hurt by someone within the past year? If so, by whom?: No Are you DNR?: No Advance Directives: No Advance Directives Information Provided: Yes Advance Directives on File: No Nutrition Risks: No Nutritional Risk Patient : No FDLMP: 07/14/2023 : No Poor oral hygiene: No service: No Current occupation: [employer] Gender identity: Female Cognitive needs: No Hearing needs: No Vision needs: No Meds Allergies Allergy/AdvReac Type Severity Reaction Status Date / Time No Known Allergies Allergy Verified 07/28/23 13:48 Home Medications ?Medication ?Instructions ?Recorded ?Confirmed ?Last Taken ?Type diazepam 5 mg tablet 5 mg PO BID PRN Anxiety 05/24/23 07/28/23 Unknown History fluoxetine 40 mg capsule 40 mg PO DAILY 05/24/23 07/28/23 Unknown History quetiapine 200 mg tablet 200 mg PO BEDTIME 05/24/23 07/28/23 Unknown History Exam Airway Mallampati Class: III TM Dist: >3cm Neck ROM: Full Assessment and Plan Assessment Anesthesia Assessment: Anesthesia Plan Discussed and Smoking Cess. Discussed Final Anesthetic Review NPO: Yes ASA Class: III Final Preanesthetic Review: No Changes in Pt Med Stat, Meds/Allgs Chart Reviewed, Consent Obtained/Reviewed and Anes Risks/Benef Reviewed Patient Risk: Intermediate Procedure Risk: Low Anesthetic Plan Anesthetic Plan: GA Disposition: Standard PACU
[2023-07-28 15:27] VITALS: BMI 48.1
[2023-07-30] VITALS (7 sets, daily range): BP systolic 133–147; BP diastolic 82–89; PULSE 86–109; RESP 16–18; TEMP 36.2–36.8; O2SAT 92–98; BMI 48.4
[2023-07-30 10:01] LABS: UPreg QC Valid YES; Urine Pregnancy NEGATIVE (NEGATIVE)
[2023-07-30] MEDS: Lactated Ringers 1,000 ML 100 ML IVCONT (10:10)
--- NOTE | 2023-07-30 11:44 | MHC.SHP ---
Pre-Procedural Eval Section A - 24 Hr Update-Section A only Date of Service: 07/30/23 The patient is an INPATIENT: No Changes since office visit: No Cold of Flu in the past 2 weeks, No New Medical Problems, No Changes in Medication and No Patient answered all questions The patient has been examined within 24 hours of the surgical procedure. The History & Physical has been completed within 30 days and I have reviewed it.: Yes Section B - Complete if H&P > 30 days Chief Complaint: Abnormal uterine and vaginal bleeding, unspecified Allergies: Allergies Allergy/AdvReac Type Severity Reaction Status Date / Time No Known Allergies Allergy Verified 07/28/23 13:48 Plan Diagnosis/Plan: Unchanged I have reviewed the history and physical and performed a pertinent physical examination on my patient. No changes have occurred unless specified. Time Spent With Patient Time: Total time managing care of this patient today ____ minutes.
--- NOTE | 2023-07-30 12:25 | PM.OP ---
Brief Operative Note Date of Service: 07/30/23 Pre-op diagnosis: Abnormal uterine bleeding Mirena IUD in utero Endometrial polyp on EMB pathology Post-op diagnosis: same (Endometrial polyps) Procedure: Hysteroscopy D&C, Polypectomy, Mirena IUD removal and reinsertion Surgeon: Carlos King MD Anesthesia: GLMA Was an Circulating Process Inspector used for this Procedure?: No Estimated blood loss (mL): 0 Pathology: other (Endometrial Scrapping. Polyps) Condition: stable Disposition: PACU
--- NOTE | 2023-07-30 12:26 | P.OP_ITS ---
Operative Note Operative Note Date of Service: 07/30/23 Narrative: Preop Diagnosis: Abnormal uterine bleeding, Endometrial polyp on EMB pathology, Mirena IUD in utero Operation: Diagnostic Hysteroscopy, Dilataion & Curettage and polypectomy, Mirena IUD removal and reinsertion Post Op Diagnosis: Endometrial Polyps QBL: Minimal Anesthesia: GLMA Surgeon: Carlos King MD Bilingual Administrative Assistant: None Complication: None Pathology: Endometrial Scrapings, Endometrial polyps Procedure: The patient was put in the dorsal lithotomy position, scrubbed, and draped in the usual manner. A sterile speculum was inserted in the patient's vagina. The anterior lip of the cervix was grasped with a single tooth t enaculum. Mirena IUD thread was identified, it was grasped with Suellen clamp and removed without any complications. The cervix was dilated up to 5 mm, then the scope was inserted in the patient's uterus. Inspection revealed multiple endometrial polyps. The Myosure Reach device was used; it was introduced through the operative channel and polypectomies were done with no complications. The scope was then taken out from the uterine cavity, sharp curettings was carried on with minimal to moderate amount of tissues retrieved. A sound was advanced through the external and internal os until it reached the fundus of the uterus, the depth was 11 cm. The sound was then withdrawn. The IUD was loaded in a sterile manner and advanced into position. The string was visualized and cut to 3 cm. At the end of the procedure, all instruments were taken out of the patient uterine and vaginal cavity. The single tooth tenaculum was removed and homeostasis was assured using pressure,. The patient tolerated the procedure well and was transferred to the PACU in a stable condition.
== END 2023-07-30 13:30 | disposition home or self-care (01) ==
PROVIDERS: PCP Internal Medicine; Visit Provider Obstetrics & Gynecology
PROC: 0UDB8ZZ Extraction of Endometrium, Via Natural or Artificial Opening Endoscopic (ICD-10-PCS; CPT 58558; principal; 2023-07-30 11:30)
DX: N93.9 Abnormal uterine and vaginal bleeding, unspecified (principal); N84.0 Polyp of corpus uteri; Z30.431 Encounter for routine checking of intrauterine contraceptive device; F41.9 Anxiety disorder, unspecified; Z79.899 Other long term (current) drug therapy; Z98.890 Other specified postprocedural states; F17.210 Nicotine dependence, cigarettes, uncomplicated
CPT/HCPCS: 58558; 58301; 58300; 81025; 88305; J1885; J2405; J2704; J3010; J7298

== ENCOUNTER → 2023-07-30 09:28 | Outpatient (BNV) | payer OTHER, SELFPAY | PROVIDERS: PCP Internal Medicine; Visit Provider Obstetrics & Gynecology | DX: N84.0 Polyp of corpus uteri (principal); N93.9 Abnormal uterine and vaginal bleeding, unspecified; Z30.433 Encounter for removal and reinsertion of intrauterine contraceptive device | CPT/HCPCS: 58300; 58301; 58558 ==

== ENCOUNTER 2023-08-11 08:12 | Outpatient (REF) | payer OTHER, SELFPAY ==
--- NOTE | ~2023-08-11 | CT_ITS ---
EXAMINATION: CT ABDOMEN AND PELVIS WITHOUT AND WITH CONTRAST CLINICAL INFORMATION: Microscopic hematuria COMPARISON: Previous pelvic ultrasound most recent May 2023 TECHNIQUE: Multidetector volumetric imaging was performed of the abdomen and pelvis before and after the IV administration of 85 mL of Omnipaque 350 intravenous contrast. Sagittal and coronal reformatted images were obtained on the technologist's workstation. This CT examination was performed using dose optimization techniques as appropriate, variously including the following: *Automated exposure control *Adjustment of mA and/or kV according to patient size (this includes techniques or standardized protocols for targeted exams where dose is matched to indication/reason for exam; i.e. extremities or head) *Use of iterative reconstruction technique DLP: 1366 mGy-cm FINDINGS: LUNG BASES: The visualized lung bases are unremarkable. LIVER, GALLBLADDER, AND BILIARY TREE: The liver is normal in size, shape, and attenuation. No focal hepatic lesion or biliary ductal dilatation is present. The gallbladder is unremarkable with no evidence of radiopaque gallstones, gallbladder wall thickening, or obvious pericholecystic inflammatory changes. PANCREAS: Unremarkable SPLEEN: Unremarkable ADRENAL GLANDS: Unremarkable KIDNEYS AND URETERS: Small 1 to 2 mm nonobstructing stone in the lower pole of the left kidney. Kidneys are otherwise normal. The collecting systems are normal. No hydronephrosis. The ureters are not optimally opacified with excreted contrast. BLADDER: Unremarkable GASTROINTESTINAL TRACT: The small and large bowel are unremarkable. The appendix is unremarkable. ABDOMINAL WALL: Diastases of the rectus muscles. LYMPH NODES: Normal VASCULAR: Unremarkable PELVIC VISCERA: There is a new IUD in the uterus. This may be flipped with the horizontal limbs inferiorly and the vertical stem of the IUD toward the uterine fundus. This could be better evaluated with pelvic ultrasound. Small left ovarian cyst. No imaging follow-up recommended. OSSEOUS STRUCTURES: Unremarkable CT/CT abdomen pelvis wo/w IV con IMPRESSION: Small nonobstructing left renal stone. Otherwise unremarkable CT IVP. New IUD in the uterus. The IUD may be flipped with horizontal limbs inferiorly and stem of the IUD in the uterine fundus. As could be better evaluated with pelvic ultrasound. Fleischner guidelines were followed.
[2023-08-11] MEDS: iohexoL 350 MG/ML 100 ML INFUS..BTL 85 ML IV (10:55)
== END 2023-08-11 08:13 | disposition home or self-care (01) ==
LOC: HO.CT 08:12
PROVIDERS: PCP Internal Medicine; Visit Provider Obstetrics & Gynecology
DX: R31.29 Other microscopic hematuria (principal)
CPT/HCPCS: 74178; Q9967

== ENCOUNTER 2023-08-20 13:24 | Outpatient (AMB) | payer OTHER, SELFPAY ==
--- NOTE | 2023-08-20 13:24 | A.OFFVIS_ITS ---
Intake Visit Reasons: microscopic hematuria Intake Note: NEW Patient presents today to established treatment for Microscopic Hematuria: Meds- None Allergies to Antibiotic- No Known Allergies Blood Thinner- None Manager Bank Required: No Accompanied by: Self / Same As Patient Allergies No Known Allergies Allergy (Verified 07/28/23 13:48) HPI Comments Details: Sherri is a 43-year-old female who presents as a telehealth new patient visit for evaluation for microscopic hematuria. Comorbidity nicotine dependence. The patient is followed by occupational therapist rehab manager for vaginal bleeding and required a blood transfusion due to acute anemia in June this year. She denies gross hematuria. No complaints of irritative voiding symptoms. I Discussed reasons for blood in the urine may include but are not limited to kidney stones, cancer in the urinary tract, BPH, kidney stone disease or inflammatory conditions of the urinary tract. I have discussed workup to include cystoscopy evaluation. I reviewed with the patient recent CT scan abdomen and pelvis imaging, with and without IV contrast, kidneys no masses or hydronephrosis, 1-2 mm left kidney lower pole stone. [facility] Medical History Anemia IUD (intrauterine device) in place Heartburn Arthritis Back pain History of blood transfusion Depression Snores Smoker Hx of menorrhagia Sinusitis Anxiety Surgical History History of excision of mass (07/01/22) Hx of section Hx of tubal ligation Family History Mother HTN (hypertension) Diabetes Mental health disorder Substance use disorder Social History Household Members: Children Housing: Apartment Are you a primary health care analyst to a significant other at home: Yes (children 15 + 17 yrs old) Do you presently have visiting nurse or other home services: No Alcohol intake: current Alcohol intake frequency: does not drink Patient Tobacco Use Status: Current everyday Tobacco user Tobacco use type: Cigarette Cigarettes Per Day: 10 Years Smoked: 7 Second Hand Smoke Exposure: No service: No Current occupation: [employer] Gender identity: Female Cognitive needs: No Hearing needs: No Vision needs: No Female Reproductive History Menstrual Age of Menarche: 15 Review of Systems Const All systems reviewed & are unremarkable except as noted in HPI and below Reports no additional complaints Eyes Reports no additional complaints ENT Reports no additional complaints Card Reports no additional complaints Resp Reports no additional complaints GI Reports no additional complaints Reports as per HPI Musc Reports no additional complaints Skin/Breast Reports system reviewed and no additional complaints, except as documented Neuro Reports no additional complaints Psych Reports no additional complaints Endo Reports no additional complaints Usman/Lymph Reports no additional complaints Aller/Immun Reports no additional complaints Telehealth Telehealth Telehealth Platform: [facility] Location of provider rendering services: practice address Location of patient: address on file Patient Identification confirmed using: Name, : Yes Telehealth method: voice only Patient verbally consented to treatment: Yes Patient verbally consented to billing insurance company: Yes Patient informed of any privacy concerns related to visit: Yes Minutes spent on Phone/Video with Pt.: 22 Results Reviewed Results Reviewed: Date of Service: 08/11/23 EXAMINATION: CT ABDOMEN AND PELVIS WITHOUT AND WITH CONTRAST CLINICAL INFORMATION: Microscopic hematuria COMPARISON: Previous pelvic ultrasound most recent May 2023 TECHNIQUE: Multidetector volumetric imaging was performed of the abdomen and pelvis before and after the IV administration of 85 mL of Omnipaque 350 intravenous contrast. Sagittal and coronal reformatted images were obtained on the technologist's workstation. This CT examination was performed using dose optimization techniques as appropriate, variously including the following: *Automated exposure control *Adjustment of mA and/or kV according to patient size (this includes techniques or standardized protocols for targeted exams where dose is matched to indication/reason for exam; i.e. extremities or head) *Use of iterative reconstruction technique DLP: 1366 mGy-cm FINDINGS: LUNG BASES: The visualized lung bases are unremarkable. LIVER, GALLBLADDER, AND BILIARY TREE: The liver is normal in size, shape, and attenuation. No focal hepatic lesion or biliary ductal dilatation is present. The gallbladder is unremarkable with no evidence of radiopaque gallstones, gallbladder wall thickening, or obvious pericholecystic inflammatory changes. PANCREAS: Unremarkable SPLEEN: Unremarkable ADRENAL GLANDS: Unremarkable KIDNEYS AND URETERS: Small 1 to 2 mm nonobstructing stone in the lower pole of the left kidney. Kidneys are otherwise normal. The collecting systems are normal. No hydronephrosis. The ureters are not optimally opacified with excreted contrast. BLADDER: Unremarkable GASTROINTESTINAL TRACT: The small and large bowel are unremarkable. The appendix is unremarkable. ABDOMINAL WALL: Diastases of the rectus muscles. LYMPH NODES: Normal VASCULAR: Unremarkable PELVIC VISCERA: There is a new IUD in the uterus. This may be flipped with the horizontal limbs inferiorly and the vertical stem of the IUD toward the uterine fundus. This could be better evaluated with pelvic ultrasound. Small left ovarian cyst. No imaging follow-up recommended. OSSEOUS STRUCTURES: Unremarkable IMPRESSION: Small nonobstructing left renal stone. Otherwise unremarkable CT IVP. New IUD in the uterus. The IUD may be flipped with horizontal limbs inferiorly and stem of the IUD in the uterine fundus. As could be better evaluated with pelvic ultrasound. Assessment & Plan Assessment & Plan (1) Microscopic hematuria: Code(s): R31.29 - Other microscopic hematuria Category: Medical Plan Follow-up office cystoscopy Patient Instructions: The patient had an opportunity to ask questions regarding treatment plan. The patient expressed understanding and agreement with the above treatment plan. The patient is aware they should contact our office by phone for worsening of their current condition or the appearance of new symptoms. Compliance is encouraged with any medications and followup testing that is ordered. It is a privilege to be allowed the opportunity to participate in the urologic care of your patient. If you have any questions or concerns regarding treatment for the above conditions please do not hesitate to contact me. The office telephone contact is [phone]. This note is constructed in part using voice recognition software. While every effort has been made to ensure accuracy director workforce management errors may have been included. Yours sincerely, Anjana Díaz MD Coding Level of Care Code Tele New Pt Level 3 (32539) Diagnoses Microscopic hematuria R31.29
== END 2023-08-20 14:02 | disposition home or self-care (01) ==
LOC: HO.HUSH 13:24
PROVIDERS: PCP Internal Medicine; Visit Provider Urology
DX: R31.29 Other microscopic hematuria (principal)
CPT/HCPCS: 99203

== ENCOUNTER → 2023-08-20 13:24 | Outpatient (BNVA) | payer OTHER, SELFPAY | PROVIDERS: PCP Internal Medicine; Visit Provider Urology ==

== ENCOUNTER 2023-08-23 07:36 | Outpatient (REF) | payer OTHER, SELFPAY ==
--- NOTE | ~2023-08-23 | US_ITS ---
EXAMINATION: US PELVIS CLINICAL INFORMATION: Displacement of IUD COMPARISON: CT abdomen pelvis 06/11/2023 TECHNIQUE: Ultrasound of the pelvis is performed using both transabdominal and transvaginal transducers along with Doppler. Transvaginal imaging is performed due to inadequate visualization transabdominally. FINDINGS: Uterus: The uterus is anteverted and retroflexed measuring 11.1 x 4.2 x 5.6 cm. And IUD is present in the endometrial canal. It is much better visualized on the CT scan from 08/11/2023 and appears to be flipped in position (see saved higgins image from CT scan). Similar but less well demonstrated findings can be seen on the ultrasound with the bottom of the IUD at 11:00 near the right cornu. The double wall endometrial thickness is 9 mm. The uterus is smooth in contour and has normal myometrial echogenicity. No visible fibroid. Nabothian cyst is present in the endometrium Adnexa: Both ovaries are visualized. There is normal color flow to the adnexa. There is no ovarian torsion. There is no pelvic ascites or fluid collection. Right ovary measures 3.3 x 1.6 x 3.0 for a volume of 8.3 mL. Left ovary measures 4.0 x 1.8 x 2.7 cm for a volume of 10.2 mL US/US pelvic and transvaginal IMPRESSION: IUD is present in the endometrial canal. It is much better visualized on the CT scan from 08/11/2023 and appears to be flipped in position.
== END 2023-08-23 07:37 | disposition home or self-care (01) ==
LOC: HO.US 07:36
PROVIDERS: PCP Internal Medicine; Visit Provider Obstetrics & Gynecology
DX: Z30.432 Encounter for removal of intrauterine contraceptive device (principal); Z30.433 Encounter for removal and reinsertion of intrauterine contraceptive device; T83.32XA Displacement of intrauterine contraceptive device, initial encounter; N20.0 Calculus of kidney; N93.9 Abnormal uterine and vaginal bleeding, unspecified
CPT/HCPCS: 58300; 58301; 76830; 76856; 81025; 99212; J7298

== ENCOUNTER 2023-08-23 08:39 | Outpatient (AMB) | payer OTHER, SELFPAY ==
--- NOTE | 2023-08-23 08:48 | MHC.OFFVIS ---
Intake Visit Reasons: CT Scan/ post op Allergies No Known Allergies Allergy (Verified 07/28/23 13:48) HPI Comments Details: The patient is presenting post hysteroscopy D&C , IUD removal and reinsertion, with no complaints minimal vaginal bleeding no feverishness chills or abdominal pain. The pathology showed the following: A. Endometrium, polypectomies: - Fragments with features of endometrial polyp(s). - Background inactive endometrium and patchy pseudodecidual change consistent with exogenous progestin. - No atypia identified. B. Endometrium, curettage: - Fragments with features of endometrial polyp(s). - Background inactive endometrium and patchy pseudodecidual change consistent with exogenous progestin. - Squamous epithelium within normal limits. - No atypia identified CT scan done on 08/20/2023 showed the following: IMPRESSION: Small nonobstructing left renal stone. Otherwise unremarkable CT IVP. New IUD in the uterus. The IUD may be flipped with horizontal limbs inferiorly and stem of the IUD in the uterine fundus. As could be better evaluated with pelvic ultrasound. Ultrasound done today, report is not available confirms IUD malposition [facility] Medical History Anemia IUD (intrauterine device) in place Heartburn Arthritis Back pain History of blood transfusion Depression Snores Smoker Hx of menorrhagia Sinusitis Anxiety Surgical History History of excision of mass (07/01/22) Hx of section Hx of tubal ligation Family History Mother HTN (hypertension) Diabetes Mental health disorder Substance use disorder Social History Household Members: Children Housing: Apartment Are you a primary multi care technician to a significant other at home: Yes (children 15 + 17 yrs old) Do you presently have visiting nurse or other home services: No Alcohol intake: current Alcohol intake frequency: does not drink Patient Tobacco Use Status: Current everyday Tobacco user Tobacco use type: Cigarette Cigarettes Per Day: 10 Years Smoked: 7 Second Hand Smoke Exposure: No service: No Current occupation: [employer] Gender identity: Female Cognitive needs: No Hearing needs: No Vision needs: No Female Reproductive History Menstrual Age of Menarche: 15 Review of Systems Const All systems reviewed & are unremarkable except as noted in HPI and below Physical Exam General: Yes no CVA tenderness External Female Exam: normal external appearance and normal appearance of the urethra Speculum Exam - Vagina: normal appearance of the vagina, normal palpation, no lesions and no masses Speculum Exam - Cervix: normal appearance of the cervix, normal palpation, no lesions, no masses, nontender and Other cervical findings present (IUD thread in place) Bimanual exam- vagina & uterus: normal bimanual exam, normal palpation, uterine size normal, normal palpation, uterine shape normal, No Cervical tenderness present and non-tender Bimanual Exam- Adnexa, other: normal adnexae Back/Spine/Pelvis Back: no CVA tenderness Office Procedures IUD Insert/Removal Details Details: The patient is presenting for IUD removal and IUD reinsertion. Her last menstrual period was within the last 5 days, Urine test was done in the office and was negative; All the contraindications were excluded. The following possible complications were discussed with the patient: Intrauterine , Ectopic , Sepsis, Pelvic Infection, Irregular Bleeding and Amenorrhea, Perforation, Expulsion, Ovarian Cysts, Breast Cancer. The following adverse effects were discussed with the patient: alteration of menstrual bleeding pattern, including: unscheduled uterine bleeding decreased uterine bleeding increased scheduled uterine bleeding female genital tract bleeding ,amenorrhea , genital discharge , vulvovaginitis , breast pain , benign ovarian cyst and associated complications , dysmenorrhea , Gastrointestinal disorders abdominal/pelvic pain, headache/migraine , back pain , acne , depression Alternative options were discussed with the patient including but not limited: control pills, patch, NuvaRing, Depo-medroxyprogesterone acetate, Nexplanon, copper IUD, sterilization, vasectomy, others The procedure was explained in detail to patient , at the end patient signed the informed consent obtained. Alternative options were discussed with the patient The patient signed the consent and agreed with the plan; all questions answered. Urine test was done in the office and was negative Preop dx: Requesting IUD removal and Reinsertion Op: IUD removal and Mirena insertion Post op dx: same EBL= 10 cc Procedure: The patient was put in the dorsal lithotomy position a speculum was inserted in the vagina the IUD thread identified. Using a Suellen clamp the thread was grasped and the IUD pulled out with no complications. A no touch technique was used throughout the procedure. A speculum was placed into vagina and cervix was cleaned with betadine). A tenaculum was placed. A plastic sound was advanced through the external and internal os until it reached the fundus of the uterus, the depth was 8 cm. The sound was then withdrawn. The IUD was loaded in a sterile manner and advanced into position. The string was visualized and cut to 3 cm. Tenaculum site hemostatic. All instruments removed from vagina. Patient tolerated the procedure well. NO complications were noted. Patient was instructed to call for fever over 100.4, significant pain unrelieved by Motrin, IUD expulsion, heavy bleeding, or abnormal discharge. In addition, the following clinical considerations were discussed with the patient to call for removal: A stroke or heart attack ,Very severe or migraine headaches ,Unexplained fever ,Yellowing of the skin or whites of the eyes, as these may be signs of serious liver problems , or suspected , Pelvic pain or pain during sex ,HIV positive seroconversion in herself or her partner , Possible exposure to sexually transmitted infections Unusual vaginal discharge or genital sores , severe vaginal bleeding or bleeding that lasts a long time, or if she misses a menstrual period, Inability to feel Mirena's threads Counseled the patient that the IUD does not protect against STI's, recommended use of condoms for the first 7 days post insertion and explained to the patient that condoms are recommended for patients at risk for sexually transmitted infections. Follow up appointment made for 4 weeks following insertion. Date of removal in no more than five years for DUB treatment and 8 years for contraception from today?s date was d/w patient. This note was generated with a voice recognition program. Some errors may have been overlooked during the review of this note. Sometimes these errors may affect the content or meaning of a given sentence. 94097-HTF Insertion 39587-TVM Removal Procedure code (CPT) selection complete Office Meds Mirena 21 mcg/24 hours (8 yrs) 52 mg intrauterine device Performing Provider: Carlos King MD Performing Location: [facility] [facility] Documented (not given) by: Carlos King MD on 08/23/23 09:28 Dose Route Admin Location Dispensed Lot Number Expiration Date [facility] Firmware Developer 1 device intrauterine ea Assessment & Plan Assessment & Plan (1) Kidney stone: Code(s): N20.0 - Calculus of kidney Category: Medical Plan: Discussed with the patient the results of the CT scan show a kidney stone, the patient was seen by Urology and has follow-up appointment scheduled. (2) Malpositioned IUD: Code(s): T83.32XA - Displacement of intrauterine contraceptive device, initial encounter Category: Medical Plan: Discussed with the patient the results of the CT scan of unofficial reading of ultrasound showing well-positioned IUD, recommended IUD removal., IUD removed, see procedure note (3) Abnormal uterine bleeding (AUB): Comment: Significant anemia Code(s): N93.9 - Abnormal uterine and vaginal bleeding, unspecified Category: Medical Plan: CBC ordered, iron sulfate 325 mg p.o. t.i.d. to be continued pending CBC results. Discussed with the patient the results of the work up done and options of treatment including Lysteda, control pills, Mirena IUD, endometrial ablation and hysterectomy. All pros, cons, risks and benefits if each option was discussed with the patient and the patient decided to go ahead with Mirena IUD so a more detailed discussion about it was conducted including mechanism of action, risks (uterine perforation, infection, injury to bladder, bowel, displacement, and others) benefits (hypo menorrhea, amenorrhea, ...). GC/CT were taken recently and were negative and Mirena IUD reinserted , see the procedure note . All questions answered, the patient verbalized understanding Orders: Orders AMB IUD Insertion/Removal - Practice Supplied Today N93.9 - Abnormal uterine and vaginal bleeding, unspecified, T83.32XA - Displacement of intrauterine contraceptive device, initial encounter Complete Blood Count no Diff Today N93.9 - Abnormal uterine and vaginal bleeding, unspecified Medications: New Mirena (levonorgestrel) 1 device intrauterine ONCE 1 ea 0RF Malposition IUD/AUB NS N93.9 - Abnormal uterine and vaginal bleeding, unspecified, T83.32XA - Displacement of intrauterine contraceptive device, initial encounter Coding Level of Care Code Est Pt Level 3 (73071) Procedure Only Diagnoses Kidney stone N20.0 Malpositioned IUD T83.32XA Abnormal uterine bleeding (AUB) N93.9 CPT Codes Details - CPT: 15843-WOD Insertion ([id number]) Details - CPT: 57184-PAB Removal ([id number])
== END 2023-08-23 09:42 | disposition home or self-care (01) ==
LOC: HO.HWS 08:39
PROVIDERS: PCP Internal Medicine; Visit Provider Obstetrics & Gynecology
DX: N93.9 Abnormal uterine and vaginal bleeding, unspecified (principal); Z30.433 Encounter for removal and reinsertion of intrauterine contraceptive device; T83.32XA Displacement of intrauterine contraceptive device, initial encounter; N20.0 Calculus of kidney; Z32.02 Encounter for pregnancy test, result negative
CPT/HCPCS: 58300; 58301; 99213

== ENCOUNTER 2023-08-23 09:35 | Outpatient (REF) | payer OTHER, SELFPAY ==
[2023-08-23 10:29] LABS: Hematocrit 38.1 % (37.0-47.0); Hemoglobin 11.3 g/dl (12.0-16.0); Mean Corpuscular HGB Conc 29.7 g/dl (31.0-35.0); Mean Corpuscular Hemoglobin 20.3 pg (27.0-33.0); Mean Corpuscular Volume 68.5 fL (80.0-98.0); PLT CLUMP 1; Red Blood Count 5.56 X10*6/uL (4.20-5.50); Red Cell Distribution Width 30.5 % (11.0-16.0)
[2023-08-23 10:43] LABS: Platelet Count 316 X10*3/uL (160-400); White Blood Count 8.6 X10*3/uL (4.8-10.8)
== END 2023-08-23 09:36 | disposition home or self-care (01) ==
LOC: HO.LAB 09:35
PROVIDERS: PCP Internal Medicine; Visit Provider Obstetrics & Gynecology
DX: N93.9 Abnormal uterine and vaginal bleeding, unspecified (principal)
CPT/HCPCS: 36415; 85027

== ENCOUNTER 2023-09-09 10:03 | Outpatient (AMB) | payer OTHER, SELFPAY ==
[2023-09-09 10:05] VITALS: BP 146/96; PULSE 103; O2SAT 96; BMI 47.8
--- NOTE | 2023-09-09 10:05 | MHC.PC.OV ---
Vital Signs 09/09/23 10:05 Height 5 ft 5 in Weight 287 lb BMI 47.8 BP 146/96 H Blood Pressure Location Lt brachial Position Sitting Pulse 103 H Pulse Source Pulse Oximeter Pulse Oximetry (%) 96 Oxygen Delivery Method Room Air Intake Visit Reasons: Annual exam Principal Consulting Engineer Required: No Glue Mixer: Not Required per policy Accompanied by: Self / Same As Patient Allergies No Known Allergies Allergy (Verified 09/09/23 10:05) Medication List - Last Reconciled 09/09/23 by Tobin Shen MD diazepam 5 mg PO BID PRN fluoxetine 40 mg PO DAILY quetiapine 200 mg PO BEDTIME Tobacco use date assessed: 09/09/23 Dental Screening Dental Screen Date: 09/09/23 Did you have a dental visit in the last 12 months?: No Did you have a dental problem in the last 6 months where you did not have access to dental care?: No Was dental information given to patient?: Patient has dentist HPI Annual exam HPI Details depression on rx; sees herapist; stable [facility] Medical History Anemia IUD (intrauterine device) in place Heartburn Arthritis Back pain History of blood transfusion Depression Snores Smoker Hx of menorrhagia Sinusitis Anxiety Surgical History History of excision of mass (07/01/22) Hx of section Hx of tubal ligation Family History Mother HTN (hypertension) Diabetes Mental health disorder Substance use disorder Social History Household Members: Children Housing: Apartment Are you a primary physician assistant primary care to a significant other at home: Yes (children 15 + 17 yrs old) Do you presently have visiting nurse or other home services: No Alcohol intake: current Alcohol intake frequency: does not drink Patient Tobacco Use Status: Current everyday Tobacco user Tobacco use type: Cigarette Cigarettes Per Day: 10 Years Smoked: 7 e-Cigarette/Vaping Use: Never Used Second Hand Smoke Exposure: No service: No Current occupational status: employed Current occupation: [employer] Gender identity: Female Cognitive needs: No Hearing needs: No Vision needs: No Female Reproductive History Menstrual Age of Menarche: 15 Questionnaire PHQ-9 Over the last 2 weeks, how often have you been bothered by any of the following problems? 1. Little interest or pleasure in doing things: more than half the days 2. Feeling down, depressed, or hopeless: more than half the days 3. Trouble falling or staying asleep, or sleeping too much: several days 4. Feeling tired or having little energy: more than half the days 5. Poor appetite or overeating: more than half the days 6. Feeling bad about yourself - or that you are a failure or have let yourself or your family down: more than half the days 7. Trouble concentrating on things, such as reading the newspaper or watching television: more than half the days 8. Moving or speaking so slowly that other people could have noticed. Or the opposite - being so fidgety or restless that you have been moving around a lot more than usual: more than half the days 9. Thoughts that you would be better off or of hurting yourself in some way: not at all Total score: 15 Depression Screening Interpretation: Positive Depression Screening Follow-up: Existing condition and In treatment Depression Screening Done: Yes Source: Developed by Drs. Luis Ferrari, Yasmeen Bryan, Laurent Brumfield and colleagues, with an educational emilee from [employer]. Thrive Questionnaire Date Thrive assessed: 09/09/23 I am a: Patient What is your living situation today?: I have a steady place to live Within the past 12 months, did the food you bought not last and you didn't have the money to get more?: Never true Within the past 12 months, did you worry whether your food would run out before you got money to buy more?: Never true Do you have trouble paying for medicines?: No Do you have trouble getting transportation to medical appointments?: No Do you have trouble paying your heating and electricity bill?: No Do you have trouble taking care of your child, family member or friend?: No Do you have trouble with day-to-day activities such as bathing, preparing meals, shopping, managing finances, etc.?: No Are you currently unemployed and looking for a job?: No Are you interested in more education?: No Please select the resources that you would like help with: None THRIVE Score: 0 AUDIT C Alcohol Use Questionnaire (AUDIT-C) 1. How often do you have a drink containing alcohol?: Never 3. How often do you have six or more drinks on one occasion?: Never Total Score: 0 Score Reviewed/Action Taken: Yes COLEMAN-7 AMB Questionnaire COLEMAN-7 Date COLEMAN - 7 assessed: 09/09/23 (existing condition, pt is taking medication ) Feeling nervous, anxious, or on edge: 0 = Not at all Not being able to stop or control worryin = Not at all Worrying too much about different things: 0 = Not at all Trouble relaxin = Not at all Being so restless that it is hard to sit still: 0 = Not at all Becoming easily annoyed or irritable: 0 = Not at all Feeling afraid as if something awful might happen: 0 = Not at all Total COLEMAN-7 score (0-4 normal; 5-9 mild; 10-14 moderate; 15-21 severe): 0 Source: Developed by Drs. Luis Ferrari, Yasmeen Bryan, Laurent Brumfield and colleagues, with an educational emilee from [employer]. Review of Systems Const Denies chills, Denies fatigue, Denies headache(s) and Denies weight loss Eyes Denies change in vision, Denies diplopia and Denies eye pain ENT Denies vertigo, Denies dizziness, Denies headache(s) and Denies nasal discharge Card Denies chest pain, Denies rapid heart rate and Denies dyspnea on exertion Resp Denies chest congestion, Denies cough, Denies pain with cough and Denies dyspnea on exertion GI Denies abdominal pain, Denies hematochezia and Denies change in bowel habits Musc Denies myalgias, Denies arthralgias and Denies joint swelling Skin/Breast Denies lesions and Denies unusual bruising Neuro Denies vertigo, Denies dizziness, Denies headache(s) and Denies focal weakness Endo Denies fatigue Physical exam (Primary Care) Vital Signs: Last Vital Signs Pulse 103 H 09/09/23 10:05 BP 146/96 H 09/09/23 10:05 Pulse Ox 96 09/09/23 10:05 Oxygen Delivery Method Room Air 09/09/23 10:05 BMI result Body Mass Index 47.8 Tobacco/Smoking Status: Tobacco use Status Tobacco use date assessed 09/09/23 09/09/23 10:06 Patient Tobacco Use Status Current everyday Tobacco 09/09/23 10:06 Tobacco use type Cigarette 09/09/23 10:06 e-Cigarette/Vaping Use Never Used 11/02/22 13:29 PHQ-9: PHQ-9 Score PHQ-9: Total score 15 09/09/23 10:13 Depression Screening Interpretation: Positive Depression Screening Follow-up: Existing condition and In treatment Thrive Assessment: Date of Thrive Assessment Date Thrive assessed 09/09/23 09/09/23 10:06 Const General: cooperative, healthy appearing and no acute distress Orientation/consciousness: oriented to person, oriented to place and oriented to time HENMT Head: Yes normal to inspection, Yes normocephalic and Yes atraumatic Mouth: Normal oral and palatal mucosa present and tongue normal Throat: Yes posterior oropharynx normal and Yes uvula midline Eyes General: appearance normal, both eyes and all related structures Neck Neck: Yes normal visual inspection, Yes full ROM and Yes no lymphadenopathy Thyroid: Thyroid normal Carotids: normal carotid upstroke Chest Chest palpation & inspection: normal inspection of the chest Resp Effort & Inspection: normal respiratory effort and able to speak in complete sentences Auscultation: clear to auscultation bilaterally Cardio Jugular venous distension: no JVD Palpation: normal PMI Rate: regular rate Rhythm: regular rhythm Heart sounds: S1 normal heart sound present and S2 normal heart sound present GI Inspection: Yes normal to inspection Palpation (GI): Soft to palpation and No hepatosplenomegaly present Auscultation: normal bowel sounds General: Yes no CVA tenderness Back/Spine/Pelvis Back: no CVA tenderness Skin General skin exam: no rashes or lesions noted Neuro General: oriented to person, oriented to place and oriented to time Extrem General: Yes normal to inspection and Yes full ROM Assessment and Plan Assessment & Plan (1) Physical exam: Code(s): Z00.00 - Encounter for general adult medical examination without abnormal findings Plan: do labs (2) Morbid obesity: Code(s): E66.01 - Morbid (severe) obesity due to excess calories Plan: motivated to exercise and improve eating habits (3) Depression: Code(s): F32.9 - Major depressive disorder, single episode, unspecified Plan: per therapist Orders: Orders Complete Blood Count Auto Diff Today Z13.0 - Encounter for screening for diseases of the blood and blood-forming organs and certain disorders involving the immune mechanism Thyroid Stimulating Hormone Today Z13.29 - Encounter for screening for other suspected endocrine disorder Lipid Panel Today Z13.220 - Encounter for screening for lipoid disorders Comprehensive [place]. Panel Fast Today Z13.9 - Encounter for screening, unspecified Coding Level of Care Code Est Pt Prev Care 40-64y(02693) Diagnoses Physical exam Z00.00 Morbid obesity E66.01 Depression F32.9
== END 2023-09-09 10:25 | disposition home or self-care (01) ==
PROVIDERS: PCP Internal Medicine; Visit Provider Internal Medicine
DX: Z00.00 Encounter for general adult medical examination without abnormal findings (principal); E66.01 Morbid (severe) obesity due to excess calories; F32.9 Major depressive disorder, single episode, unspecified; Z68.42 Body mass index [BMI] 45.0-49.9, adult
CPT/HCPCS: 99396

== ENCOUNTER 2023-09-24 14:49 | Outpatient (AMB) | payer OTHER, SELFPAY ==
--- NOTE | 2023-09-24 14:57 | MHC.OFFVIS ---
Intake Visit Reasons: cysto Intake Note: Patient is Present for Cystoscopy Urology Med:None Antibiotic Allergy: None Blood Thinner:None Diabetic: No No diabetic medication URO- G Disposable Cystoscope lot:[id number] exp:04/29/2026 Allergies No Known Allergies Allergy (Verified 10/06/23 10:21) Medication List - Last Reconciled 09/24/23 by Anjana Díaz MD cefuroxime axetil 500 mg PO BID 7 days diazepam 5 mg PO BID PRN fluoxetine 40 mg PO DAILY quetiapine 200 mg PO BEDTIME HPI Comments Details: 09/24/23--here for cystoscopy. Reviewed with patient CT small kidney stones. Patient states she just started her menstrual cycle. She had Mirena placed due to vaginal bleeding. Cystoscopy findings bladder wall thickening erythematous changes consistent with cystitis. Ceftin 500 mg twice a day for 7 days sent to the pharmacy. Discussed 24 hour urine collection. 08/20/23--Sherri is a 43-year-old female who presents as a telehealth new patient visit for evaluation for microscopic hematuria. Comorbidity nicotine dependence. 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 She denies gross hematuria. No complaints of irritative voiding symptoms. I Discussed reasons for blood in the urine may include but are not limited to kidney stones, cancer in the urinary tract, BPH, kidney stone disease or inflammatory conditions of the urinary tract. I have discussed workup to include cystoscopy evaluation. I reviewed with the patient recent CT scan abdomen and pelvis imaging, with and without IV contrast, kidneys no masses or hydronephrosis, 1-2 mm left kidney lower pole stone. [facility] Medical History (Updated 11/02/23 @ 13:05 by Hilary Eid [facility]) Morbid obesity Anemia IUD (intrauterine device) in place Heartburn Arthritis Back pain History of blood transfusion Depression Snores Smoker Hx of menorrhagia Sinusitis Anxiety Surgical History History of excision of mass (07/01/22) Hx of section Hx of tubal ligation Family History Mother HTN (hypertension) Diabetes Mental health disorder Substance use disorder Social History (Reviewed 07/24/24 @ 10:22 by JEZ Pollard Household Members: Children Housing: Apartment Are you a primary youth career specialist to a significant other at home: Yes (children 15 + 17 yrs old) Do you presently have visiting nurse or other home services: No Alcohol intake: former Patient Tobacco Use Status: Current everyday Tobacco user Tobacco use type: Cigarette Cigarettes Per Day: 10 Years Smoked: 7 e-Cigarette/Vaping Use: Never Used Second Hand Smoke Exposure: No service: No Current occupational status: employed Current occupation: [employer] Gender identity: Female Cognitive needs: No Hearing needs: No Vision needs: No Female Reproductive History Menstrual Age of Menarche: 15 Review of Systems Const All systems reviewed & are unremarkable except as noted in HPI and below Reports no additional complaints Eyes Reports no additional complaints ENT Reports no additional complaints Card Reports no additional complaints Resp Reports no additional complaints GI Reports no additional complaints Reports as per HPI Musc Reports no additional complaints Skin/Breast Reports system reviewed and no additional complaints, except as documented Neuro Reports no additional complaints Psych Reports no additional complaints Endo Reports no additional complaints Usman/Lymph Reports no additional complaints Aller/Immun Reports no additional complaints Office Procedures Cystoscopy Consent Discussed risk and benefit or proposed procedure with the patient. Information consent for procedure given to the patient. Discussed technical aspects, risks, benefits and alternatives in full. Addressed all of the patient's questions and concerns regarding the procedure. The patient demonstrated knowledge and understanding. They wish to proceed with this procedure. Preparation The patient was prepped in the usual manner. A intel recruiter was present and in the room. Genitalia was prepped with betadine solution in a sterile manner. Lidocaine Jelly 2% was placed into the urethra and 16Fr flexible Olympus cystoscope was inserted into the meatus after adequate lubrication. Procedure Time out per protocol performed. Bladder Inspection Bladder Inspection: The bladder was inspected in its entirety with utilization retroflexion displaying: Tumor(s): no suspicious bladder lesions visualized Trabeculation: Mild/Moderate Mucosal Erthema: mild to moderate Orifices: normal shape and position Urethra: normal Cystoscopy findings bladder wall thickening erythematous changes consistent with cystitis. [id number] DISPOSABLE SCOPE URO-G FLEXIBLE SCOPE Procedure code (CPT) selection complete Office Meds lidocaine HCl 2 % mucosal jelly in applicator Performing Provider: Anjana Díaz MD [facility] Administered by: Jose Mullins LPN on 09/24/23 15:21 Dose Route Admin Location Dispensed Lot Number Expiration Date NDC Building Insulation Installer 10 mL intra-urethral 10 mL naproxen 500 mg tablet Performing Provider: Anjana Díaz MD Performing Location: [facility] Administered by: Jose Mullins LPN on 09/24/23 15:21 Dose Route Admin Location Dispensed Lot Number Expiration Date NDC Building Insulation Installer 500 mg PO 1 tab ciprofloxacin HCl 500 mg tablet Performing Provider: Anjana Díaz MD Performing Location: [facility] Administered by: Jose Mullins LPN on 09/24/23 15:21 Dose Route Admin Location Dispensed Lot Number Expiration Date NDC Building Insulation Installer 500 mg PO 1 tab Results AMB Urinalysis, Automated UA Leukoctes 70 Areli/uL Last Edit by MICHELLE Little on 09/24/23 15:10 UA Nitrite Positive Last Edit by MICHELLE Little on 09/24/23 15:10 UA Urobilinogen 0.2 mg/dL Last Edit by MICHELLE Little on 09/24/23 15:46 UA Urobilinogen previously reported as 1 Flory Sawyer 09/24/23 15:46 UA Protein 30 mg/dL Last Edit by MICHELLE Little on 09/24/23 15:46 UA Protein previously reported as 100 Flory Sawyer 09/24/23 15:46 UA pH 5.5 Last Edit by MICHELLE Little on 09/24/23 15:10 UA Blood 10 Boni/uL Last Edit by MICHELLE Little on 09/24/23 15:46 UA Blood previously reported as 200 Flory Sawyer 09/24/23 15:46 UA Specific Greig 1.030 Last Edit by MICHELLE Little on 09/24/23 15:10 UA Ketone Positive Last Edit by MICHELLE Little on 09/24/23 15:10 UA Bilirubin 1 mg/dL Last Edit by MICHELLE Little on 09/24/23 15:10 UA Glucose 0 mg/dL Last Edit by MICHELLE Little on 09/24/23 15:10 Results Reviewed Results Reviewed: Laboratory Last Values Urine pH (Auto) 5.5 09/24/23 15:02 Specific Greig (Auto) 1.030 09/24/23 15:02 Urine Protein (Auto) 30 mg/dL 09/24/23 15:02 Glucose (UA)(Auto) 0 mg/dL 09/24/23 15:02 Urine Ketones (Auto) Positive 09/24/23 15:02 Urine Blood (Auto) 10 Boni/uL 09/24/23 15:02 Urine Nitrite (Auto) Positive 09/24/23 15:02 Urine Bilirubin (Auto) 1 mg/dL 09/24/23 15:02 Urine Urobilinogen (Auto) 0.2 mg/dL 09/24/23 15:02 Leukocyte Esterase (Auto) 70 Areli/uL 09/24/23 15:02 Date of Service: 08/11/23 EXAMINATION: CT ABDOMEN AND PELVIS WITHOUT AND WITH CONTRAST CLINICAL INFORMATION: Microscopic hematuria COMPARISON: Previous pelvic ultrasound most recent May 2023 TECHNIQUE: Multidetector volumetric imaging was performed of the abdomen and pelvis before and after the IV administration of 85 mL of Omnipaque 350 intravenous contrast. Sagittal and coronal reformatted images were obtained on the technologist's workstation. This CT examination was performed using dose optimization techniques as appropriate, variously including the following: *Automated exposure control *Adjustment of mA and/or kV according to patient size (this includes techniques or standardized protocols for targeted exams where dose is matched to indication/reason for exam; i.e. extremities or head) *Use of iterative reconstruction technique DLP: 1366 mGy-cm FINDINGS: LUNG BASES: The visualized lung bases are unremarkable. LIVER, GALLBLADDER, AND BILIARY TREE: The liver is normal in size, shape, and attenuation. No focal hepatic lesion or biliary ductal dilatation is present. The gallbladder is unremarkable with no evidence of radiopaque gallstones, gallbladder wall thickening, or obvious pericholecystic inflammatory changes. PANCREAS: Unremarkable SPLEEN: Unremarkable ADRENAL GLANDS: Unremarkable KIDNEYS AND URETERS: Small 1 to 2 mm nonobstructing stone in the lower pole of the left kidney. Kidneys are otherwise normal. The collecting systems are normal. No hydronephrosis. The ureters are not optimally opacified with excreted contrast. BLADDER: Unremarkable GASTROINTESTINAL TRACT: The small and large bowel are unremarkable. The appendix is unremarkable. ABDOMINAL WALL: Diastases of the rectus muscles. LYMPH NODES: Normal VASCULAR: Unremarkable PELVIC VISCERA: There is a new IUD in the uterus. This may be flipped with the horizontal limbs inferiorly and the vertical stem of the IUD toward the uterine fundus. This could be better evaluated with pelvic ultrasound. Small left ovarian cyst. No imaging follow-up recommended. OSSEOUS STRUCTURES: Unremarkable IMPRESSION: Small nonobstructing left renal stone. Otherwise unremarkable CT IVP. New IUD in the uterus. The IUD may be flipped with horizontal limbs inferiorly and stem of the IUD in the uterine fundus. As could be better evaluated with pelvic ultrasound. Assessment & Plan Assessment & Plan (1) Hematuria: Code(s): R31.9 - Hematuria, unspecified Category: Medical (2) Kidney stone: Code(s): N20.0 - Calculus of kidney Category: Medical (3) UTI (urinary tract infection): Code(s): N39.0 - Urinary tract infection, site not specified Category: Medical Plan Cystoscopy findings bladder wall thickening erythematous changes consistent with cystitis. Ceftin 500 mg twice a day for 7 days sent to the pharmacy. Discussed 24 hour urine collection. Orders: Orders Urine Cytology 09/24/23 R31.9 - Hematuria, unspecified AMB Urinalysis Automated 09/24/23 Z13.9 - Encounter for screening, unspecified AMB Cystoscopy 09/24/23 R31.29 - Other microscopic hematuria Urine Culture 09/24/23 N39.0 - Urinary tract infection, site not specified Medications: New cefuroxime axetil 500 mg PO BID 14 tabs 0RF 7 days Patient Instructions: The patient had an opportunity to ask questions regarding treatment plan. The patient expressed understanding and agreement with the above treatment plan. The patient is aware they should contact our office by phone for worsening of their current condition or the appearance of new symptoms. Compliance is encouraged with any medications and followup testing that is ordered. It is a privilege to be allowed the opportunity to participate in the urologic care of your patient. If you have any questions or concerns regarding treatment for the above conditions please do not hesitate to contact me. The office telephone contact is [phone]. This note is constructed in part using voice recognition software. While every effort has been made to ensure accuracy search coordinator errors may have been included. Yours sincerely, Anjana Díaz MD Coding Level of Care Code Est Pt Level 3 (83000) Diagnoses Hematuria R31.9 Kidney stone N20.0 UTI (urinary tract infection) N39.0 CPT Codes Cystoscopy - CPT: 62797-[id number] ([id number])
== END 2023-09-24 15:39 | disposition home or self-care (01) ==
PROVIDERS: PCP Internal Medicine; Visit Provider Urology
DX: R31.9 Hematuria, unspecified (principal); N20.0 Calculus of kidney; N39.0 Urinary tract infection, site not specified
CPT/HCPCS: 52000; 99213

== ENCOUNTER 2023-09-24 14:49 | Outpatient (REF) | payer OTHER, SELFPAY ==
[2023-09-24 16:44] LABS: Urine Cytology See Pathology rpt
== END 2023-09-24 14:50 | disposition home or self-care (01) ==
LOC: HO.LAB 14:49
PROVIDERS: PCP Internal Medicine; Visit Provider Urology
DX: R31.9 Hematuria, unspecified (principal); N39.0 Urinary tract infection, site not specified
CPT/HCPCS: 52000; 81003; 87086; 87088; 87186; 88112; 99212

== ENCOUNTER → 2023-10-05 09:28 | Outpatient (BNVA) | payer OTHER, SELFPAY | PROVIDERS: PCP Internal Medicine; Visit Provider Physician Assistant Surgical ==

== ENCOUNTER 2023-10-06 10:12 | Outpatient (AMB) | payer OTHER, SELFPAY ==
[2023-10-06 10:15] VITALS: BP 144/92; BMI 46.6
--- NOTE | 2023-10-06 10:15 | MHC.OFFVIS ---
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 No complaints. Last Pap/HPV was negative in 06/02 Last Mammogram was BI-RADS 2 in 04/07 In addition, the patient is here for IUD check after 1 st period following IUD insertion. The patient has no complaints periods are normal, not painful, and flow is normal. Was diagnosed with UTI on 10/01 urine culture was above 100 KE coli , the patient was prescribed cefuroxime for which she took b.i.d. for 7 days PFSH Medical History Anemia IUD (intrauterine device) in place Heartburn Arthritis Back pain History of blood transfusion Depression Snores Smoker Hx of menorrhagia Sinusitis Anxiety Surgical History History of excision of mass (07/01/22) Hx of section Hx of tubal ligation Family History Mother HTN (hypertension) Diabetes Mental health disorder Substance use disorder Social History Household Members: Children Housing: Apartment Are you a primary landcare facilitator to a significant other at home: Yes (children 15 + 17 yrs old) Do you presently have visiting nurse or other home services: No Alcohol intake: former Patient Tobacco Use Status: Current everyday Tobacco user Tobacco use type: Cigarette Cigarettes Per Day: 10 Years Smoked: 7 e-Cigarette/Vaping Use: Never Used Second Hand Smoke Exposure: No service: No Current occupational status: employed Current occupation: [employer] Gender identity: Female Cognitive needs: No Hearing needs: No Vision needs: No Female Reproductive History Menstrual Age of Menarche: 15 control method: progestin IUCD Date of last pap smear: 06/04/20 Date of Mammogram: 03/29/23 Review of Systems Const All systems reviewed & are unremarkable except as noted in HPI and below Card Reports as per HPI Resp Reports as per HPI GI Reports as per HPI and Reports no additional complaints Reports as per HPI Physical Exam Vital Signs: Last Vital Signs BP 144/92 H 10/06/23 10:15 BMI result Body Mass Index 46.6 Const General: cooperative, healthy appearing and comfortable Chest Chest palpation & inspection: normal inspection of the chest and normal palpation of entire chest wall Breast/axilla inspection: normal inspection of the breasts and normal inspection of the axillae Breast/axilla palpation: normal palpation of the breasts, normal palpation of the axillae and no axillary lymphadenopathy Resp Effort & Inspection: normal respiratory effort Auscultation: clear to auscultation bilaterally Percussion: percussion normal Cardio Palpation: normal PMI Rate: regular rate Rhythm: regular rhythm Heart sounds: no murmurs and no rubs Peripheral pulses: Peripheral pulses 2+ throughout GI Inspection: Yes normal to inspection Palpation (GI): Soft to palpation, nontender, no guarding, not rigid and No hepatosplenomegaly present Percussion: Yes normal to percussion Auscultation: normal bowel sounds Rectal Exam - Female: deferred General: Yes bladder normal to palpation External Female Exam: No lesion Speculum Exam - Vagina: normal appearance of the vagina, normal palpation, normal vaginal discharge and not erythematous Speculum Exam - Cervix: normal appearance of the cervix, normal palpation and Other cervical findings present (IUD string in place) Bimanual exam- vagina & uterus: normal bimanual exam, normal palpation, uterine size normal, bladder normal to palpation, consistency normal and normal palpation Bimanual Exam- Adnexa, other: normal adnexae, no masses and no tenderness Results AMB Test Urine AMB Test Urine Negative Last Edit by Kaity Suarez CMA on 10/06/23 10:28 Results Reviewed Results Reviewed: Laboratory Last Values Tst Clinic Negative 10/06/23 10:27 Assessment & Plan Assessment & Plan (1) UTI (urinary tract infection): Code(s): N39.0 - Urinary tract infection, site not specified Category: Medical Plan: Urine dip showed microscopic hematuria, Will send urine for culture as a test of cure the patient is being followed up by Urology for microscopic hematuria for workup and has a scheduled appointment to be seen soon (2) Well woman exam: Code(s): Z01.419 - Encounter for gynecological examination (general) (routine) without abnormal findings Category: Medical Plan: Cotesting not indicated this year. Instructions given the patient to schedule next screening Mammogram in 04/08. Counseled the patient about the recommended dietary allowance of 1000 mg of Calcium & 600 IU of vitamin D. The patient was instructed to perform monthly self-breast exams and to schedule an annual exam in a year; All questions answered and the patient verbalized understanding. Instructed the patient to schedule annual exam in a year (3) IUD check up: Code(s): Z30.431 - Encounter for routine checking of intrauterine contraceptive device Category: Medical Plan: UPT done in the office was negative. Discussed with the patient the finding on physical exam, IUD string in place, the patient was reassured. Instructions given to patient to call in case of temperature above 100.4, severe cramping/pelvic pain, abnormal discharge or abnormal uterine bleeding or if she misses her menstrual cycle. Otherwise follow-up at her annual exam appointment. All questions answered, the patient verbalized understanding. Coding Level of Care Code Est Pt Prev Care 40-64y(11399) Diagnoses UTI (urinary tract infection) N39.0 Well woman exam Z01.419 IUD check up Z30.431
== END 2023-10-06 10:45 | disposition home or self-care (01) ==
PROVIDERS: PCP Internal Medicine; Visit Provider Obstetrics & Gynecology
DX: Z01.419 Encounter for gynecological examination (general) (routine) without abnormal findings (principal); N39.0 Urinary tract infection, site not specified; Z32.02 Encounter for pregnancy test, result negative
CPT/HCPCS: 99396

== ENCOUNTER 2023-10-06 10:12 | Outpatient (REF) | payer OTHER, SELFPAY | END 2023-10-06 10:13 | disposition home or self-care (01) | LOC: HO.LNP 10:12 | PROVIDERS: PCP Internal Medicine; Visit Provider Obstetrics & Gynecology | DX: Z01.419 Encounter for gynecological examination (general) (routine) without abnormal findings (principal); N39.0 Urinary tract infection, site not specified | CPT/HCPCS: 81025; 87086; 99396 ==

== ENCOUNTER 2023-10-28 15:00 | Outpatient (AMB) | payer OTHER, SELFPAY ==
--- NOTE | 2023-10-28 12:11 | A.OFFVIS_ITS ---
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 She heard about our program from her PCP. Her goal is to lose weight and achieve a healthy lifestyle. She reports first being concerned about her weight over the last 13 years, highest weight to date was 291. Current weight is 281 pounds with a BMI of 46.7. She has tried multiple methods of weight loss including fad diets without permanent results. She lives with her kids. 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 She wakes at:?7 am, and goes to bed at?10pm. Dinner is at 6 pm. Breakfast: skip, coffee 8 cream and 7 sugar AM snack: skip Lunch: skip PM snack: skip Dinner: chicken, beef, pork, rice, mac and cheese, spaghetti After dinner: toast Other snacks: chips Liquids: 32 oz water, rare soda, 12 oz juice weekly Alcohol/marijuana/tobacco intake: no etoh, rare cannabis, 1/2 PPD (wants to quit) Exercise: none GERD score: 13 MARIA D score: 8 ESS score: 1 QOL score: 121 PFSH Medical History Anemia IUD (intrauterine device) in place Heartburn Arthritis Back pain History of blood transfusion Depression Snores Smoker Hx of menorrhagia Sinusitis Anxiety Surgical History History of excision of mass (07/01/22) Hx of section Hx of tubal ligation Family History Mother HTN (hypertension) Diabetes Mental health disorder Substance use disorder Social History Household Members: Children Housing: Apartment Are you a primary complex care nurse practitioner to a significant other at home: Yes (children 15 + 17 yrs old) Do you presently have visiting nurse or other home services: No Alcohol intake: former Patient Tobacco Use Status: Current everyday Tobacco user Tobacco use type: Cigarette Cigarettes Per Day: 10 Years Smoked: 7 e-Cigarette/Vaping Use: Never Used Second Hand Smoke Exposure: No service: No Current occupational status: employed Current occupation: [employer] Gender identity: Female Cognitive needs: No Hearing needs: No Vision needs: No Female Reproductive History Menstrual Age of Menarche: 15 Telehealth Telehealth Telehealth Platform: Telephone Location of provider rendering services: practice address Location of patient: address on file Patient Identification confirmed using: Name, : Yes Telehealth method: voice only Patient verbally consented to treatment: Yes Patient verbally consented to billing insurance company: Yes Patient informed of any privacy concerns related to visit: Yes Minutes spent on Phone/Video with Pt.: 45 Assessment & Plan Assessment & Plan (1) Morbid obesity: Code(s): E66.01 - Morbid (severe) obesity due to excess calories Category: Medical Plan: This is a?43 yo female who will start our SWL program to prepare for bariatric surgery.? Blood work, CXR, ECG, Abd US and UGI have been ordered. She is being scheduled for initial consultations. She will start SWL classes and watch the first three videos before her next appointment. 1. You have been given a link to our software elena ([email or web address]) to generate an individualized nutritional and exercise plan specific for you. Please send me a screenshot of the plans you will generate Meal to include lean meat (beef, fish, pork, turkey, chicken), or surinamese yogurt, or egg whites, or beans with a salad with olive oil and fruits (berries, pears, apples, kiwi). Avoid salt, breads, potatoes, rice, pasta, desserts. 2. If you choose shakes, each shake would be drunk slowly, like coffee over a period of 2 hours. 3. If you choose bars, cut each bar in 4 pieces and eat each piece in 30 min to make each bar last 2 hours. 4. I emphasized the importance of measuring accurately the food portion and measure it when serving the food on a plate 5. The meal portions include a specific number of forks of meat (protein) and salad. You always eat the meat portion but you can replace up to half of salad/vegetables portion with rice, potatoes or pasta, or a fruit ?if you like. The less you do it the better weight loss will be. 6. One full-size fork is what can be scooped on the fork without falling aside and not what can be bit with the fork. Use regular forks like those you find in a typical restaurant. 7.? Please send me weight measurements from your body composition scale as soon as possible and then once a week. Always include your diet and exercise plan. The best time to weigh yourself is first thing in the morning after going to the bathroom. 8. The best choice for exercise would be treadmill, stationary bike, elliptical at [facility]. Alternatively start walking outside daily, tracking calories with a goal of 300 calories per day, daily. You can download the elena [employer] which can track your time, distance and calories while walking outside. You press start in the elena when you start and then stop when you are finished. 9.?Goal is to lose at least 1.5-2 lbs per week, and about 10% before surgery, which is about 28 pounds 10. Please follow the diet plan exactly without any change. If you don't like something about the plan or you feel hungry you need to communicate with me so I can help you revise the plan. My cell phone number to communicate with me by text is [phone] Patient is morbidly obese and is not considered stable at this time.?I spent a total of 70 minutes reviewing/updating records, examining the patient and counseling the patient on weight management as detailed above. Orders: Orders Complete Blood Count Auto Diff Today E66.01 - Morbid (severe) obesity due to excess calories Lipid Panel Today E66.01 - Morbid (severe) obesity due to excess calories IRON PROFILE Today E66.01 - Morbid (severe) obesity due to excess calories Comprehensive Met. Panel Today E66.01 - Morbid (severe) obesity due to excess calories Vitamin B12 and Folate Today E66.01 - Morbid (severe) obesity due to excess calories Ferritin Today E66.01 - Morbid (severe) obesity due to excess calories Vitamin D 25-OH Total Today E66.01 - Morbid (severe) obesity due to excess calories XR chest 2V Today E66.01 - Morbid (severe) obesity due to excess calories ECG 12 lead EKG Today E66.01 - Morbid (severe) obesity due to excess calories Insulin Today E66.01 - Morbid (severe) obesity due to excess calories Hemoglobin A1c Today E66.01 - Morbid (severe) obesity due to excess calories H Pylori Breath Test Today E66.01 - Morbid (severe) obesity due to excess calories Zinc Today E66.01 - Morbid (severe) obesity due to excess calories C Reactive Protein Today E66.01 - Morbid (severe) obesity due to excess calories Vitamin B1 Today E66.01 - Morbid (severe) obesity due to excess calories Vitamin A Today E66.01 - Morbid (severe) obesity due to excess calories TSH reflex Free T4 Today E66.01 - Morbid (severe) obesity due to excess calories US abdomen comp w elastography Today E66.01 - Morbid (severe) obesity due to excess calories FL upper GI w air Today E66.01 - Morbid (severe) obesity due to excess calories Referrals Behavioral Health Referral E66.01 - Morbid (severe) obesity due to excess calories
== END 2023-10-28 16:00 | disposition home or self-care (01) ==
LOC: HO.HBS 11-01 11:51
PROVIDERS: PCP Internal Medicine; Visit Provider Physician Assistant Surgical
DX: E66.01 Morbid (severe) obesity due to excess calories (principal)
CPT/HCPCS: 99205

== ENCOUNTER → 2023-10-28 15:00 | Outpatient (BNVA) | payer OTHER, SELFPAY | PROVIDERS: PCP Internal Medicine; Visit Provider Physician Assistant Surgical | DX: E66.01 Morbid (severe) obesity due to excess calories (principal) ==

== ENCOUNTER 2023-11-02 10:30 | Outpatient (REF) | payer OTHER, SELFPAY ==
[2023-11-02 11:10] LABS: MANUAL DIFF FLAG NO
[2023-11-02 11:40] LABS: Basophils Absolute Auto 0.1 X10*3/uL (0.0-0.2); Basophils Percent Auto 0.6 % (0-2); Eosinophils Absolute Auto 0.1 X10*3/uL (0.0-0.4); Eosinophils Percent Auto 1.6 % (0-4); Hematocrit 38.4 % (37.0-47.0); Hemoglobin 12.1 g/dl (12.0-16.0); Imm Gran Abs Auto 0.09 X10*3/uL (0.00-0.03); Lymphocytes Absolute Auto 3.6 X10*3/uL (1.2-4.9); Lymphocytes Percent Auto 41.6 % (20-40); Mean Corpuscular HGB Conc 31.5 g/dl (31.0-35.0); Mean Corpuscular Hemoglobin 21.5 pg (27.0-33.0); Mean Corpuscular Volume 68.1 fL (80.0-98.0); Monocytes Absolute Auto 0.4 X10*3/uL (0.1-1.2); Monocytes Percent Auto 4.8 % (2-11); Neutrophils Absolute Auto 4.4 x10*3/uL (2.0-8.3); Neutrophils Percent Auto 50.4 % (45-73); Platelet Count 326 X10*3/uL (160-400); Red Blood Count 5.64 X10*6/uL (4.20-5.50); Red Cell Distribution Width 21.8 % (11.0-16.0); White Blood Count 8.7 X10*3/uL (4.8-10.8)
[2023-11-02 11:50] LABS: Estimated Average Glucose 114 mg/dL; Hemoglobin A1c % 5.6 % (<6.0)
[2023-11-02 12:26] LABS: Alanine Aminotransferase 11 U/L (0-31); Albumin Level 4.2 g/dL (3.5-5.0); Alkaline Phosphatase 104 U/L (39-117); Anion Gap 14 (12-20); Aspartate Amino Transferase 13 U/L (5-31); Bilirubin Total 0.5 mg/dL (0.0-1.0); Blood Urea Nitrogen 11 mg/dL (9-16); Calcium 9.8 mg/dL (8.4-10.2); Carbon Dioxide 23 mmol/L (22-29); Chloride 106 mmol/L (96-108); Cholesterol 165 mg/dL (<200); Estimated Glomerular Filt Rate > 60; Glucose Random 104 mg/dL (60-115); HDL Cholesterol 44 mg/dL (>40); Iron 43 mcg/dL (30-160); LDL Cholesterol Calculated 103 mg/dL (<100); Percent Iron Saturation 13 % (15-50); Potassium 4.4 mmol/L (3.3-5.1); Sodium 139 mmol/L (135-145); Total Iron Binding Capacity 336 mcg/dL (228-428); Total Protein 8.1 g/dL (6.5-8.0); Triglycerides 90 mg/dL (<150); Unsaturated Iron Binding 293 ug/dL
[2023-11-02 12:31] LABS: Ferritin 43 ng/mL (10-250); Insulin 32 uU/mL (2-29); TSH reflex Free T4 0.44 uIU/mL (0.32-4.0); Vitamin D 25-OH Total 12.4 ng/mL (>30)
[2023-11-02 12:47] LABS: Folate 3.8 ng/mL (> or = 4.0); Vitamin B12 641 pg/mL (200-900)
[2023-11-05 12:13] LABS: Zinc 76 mcg/dL (60-130)
[2023-11-08 22:09] LABS: Vitamin A 41 mcg/dL (38-98)
[2023-11-10 06:29] LABS: Vitamin B1 7 nmol/L (8-30)
== END 2023-11-02 10:31 | disposition home or self-care (01) ==
LOC: HO.LAB 10:30
PROVIDERS: Physician Assistant Surgical; PCP Internal Medicine; Visit Provider Internal Medicine
DX: E66.01 Morbid (severe) obesity due to excess calories (principal)
CPT/HCPCS: 36415; 80053; 80061; 82306; 82607; 82728; 82746; 83036; 83525; 83540; 84425; 84443; 84590; 84630; 85025; 86140

== ENCOUNTER 2023-11-02 12:21 | Outpatient (AMB) | payer OTHER, SELFPAY ==
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
== END 2023-11-02 13:06 | disposition home or self-care (01) ==
PROVIDERS: PCP Internal Medicine; Visit Provider Counselor Mental Health
DX: F32.A Depression, unspecified (principal)
CPT/HCPCS: 90791

== ENCOUNTER 2023-11-08 09:14 | Outpatient (REF) | payer OTHER, SELFPAY ==
--- NOTE | ~2023-11-08 | US_ITS ---
EXAMINATION: US COMPLETE ABDOMEN WITH LIVER ELASTOGRAPHY CLINICAL INFORMATION: Morbid obesity. COMPARISON: None available. TECHNIQUE: Real-time imaging of the abdominal viscera. Noninvasive ultrasound liver fibrosis assessment is performed using Yon ElastPQ point quantification shear wave elastography (pSWE) with a C5-2 MHz transducer. Multiple elastography samples are obtained. FINDINGS: PANCREAS: The visualized portions of the pancreas are unremarkable but a large portion of the gland is obscured by bowel gas. ABDOMINAL AORTA: The proximal, middle, and distal aortic segments are normal in caliber. INFERIOR VENA CAVA: Visualized portions are normal. LIVER: Liver is enlarged with increased echogenicity consistent with steatosis. No focal lesion or intrahepatic biliary duct dilatation. The right lobe measures 22.2 cm in length. The left lobe measures 14.5 cm in length. Portal flow is towards the liver (hepatopetal). Shear wave liver elastography median stiffness is 1.65 m/s (reference: normal median stiffness is 1.3 m/s or less). IQR/median stiffness to assess sampling precision is 0.07 (reference: good quality data set is IQR/median stiffness of 0.15 or less). GALLBLADDER: Normal. The gallbladder is physiologically distended without evidence of stones, sludge, polyps, wall thickening or pericholecystic fluid. COMMON BILE DUCT: Mildly dilated measuring 0.7 cm in diameter. RIGHT KIDNEY: Normal. No hydronephrosis. No renal calculi or focal parenchymal lesions. The kidney measures 12.2 cm in maximum dimension. LEFT KIDNEY: Normal. No hydronephrosis. No renal calculi or focal parenchymal lesions. The kidney measures 11.2 cm in maximum dimension. SPLEEN: Normal. The spleen measures 11.2 cm in maximum dimension. FREE FLUID: None. US/US abdomen comp w elastography IMPRESSION: 1. Enlarged fatty liver. 2. Liver Elastography: In the absence of other known clinical signs, measurements rule out compensated advanced chronic liver disease. If there are known clinical signs, further testing may be needed for confirmation. REFERENCE: Society of Radiologists in Ultrasound Liver Stiffness Thresholds (2020): LIVER STIFFNESS THRESHOLDS: *Liver Stiffness equal or less than 1.3 m/s: High probability of being normal. *Liver Stiffness less than 1.7 m/s: In the absence of other known clinical signs, rules out compensated advanced chronic liver disease. *Liver Stiffness 1.7-2.1 m/s: Suggestive of compensated advanced chronic liver disease but need further test for confirmation. *Liver Stiffness over 2.1 m/s: Rules in compensated advanced chronic liver disease. *Liver Stiffness over 2.4 m/s: Suggestive of clinically significant portal hypertension. QUALITY OF DATA SET: *IQR/Median value equal or less than 0.15 implies a quality data set. *IQR/Median value over 0.15 implies a poor quality data set. SIGNIFICANT CHANGE FROM PRIOR EXAM: Significant change if liver stiffness measurement is 10% or greater from prior exam. OTHER CONSIDERATIONS: The stage of liver fibrosis may be overestimated in the setting of acute hepatitis, liver inflammation, elevated liver function tests, hepatic vascular congestion, obstructive cholestasis, non-fasting state, and infiltrative diseases such as amyloidosis and lymphoma. In some patients with NAFLD, the liver stiffness thresholds for compensated advanced chronic liver disease may be lower. In causes other than viral hepatitis and NAFLD, liver stiffness thresholds are not well established. Electronically signed by: Tommy Phan MD 11/18/2023 09:54 PM EDT
--- NOTE | ~2023-11-08 | XR_ITS ---
EXAMINATION: XR CHEST, 2 VIEWS CLINICAL INFORMATION: Obesity. COMPARISON: None. TECHNIQUE: PA and lateral views of the chest were obtained. FINDINGS: Lungs are clear. No consolidation, pneumothorax, or pleural effusion. Cardiac and mediastinal contours are normal. Pulmonary vasculature is unremarkable. Trachea is midline. Osseous structures are unremarkable. XR/XR chest 2V IMPRESSION: Normal chest radiographs. Electronically signed by: Edgar Chun MD 11/29/2023 07:39 PM EDT
--- NOTE | 2023-11-08 10:16 | ECG_ITS ---
Test Reason : MOR OBS Blood Pressure : / mmHG Vent. Rate : 096 BPM Atrial Rate : 096 BPM P-R Int : 136 ms QRS Dur : 078 ms QT Int : 354 ms P-R-T Axes : 048 017 006 degrees QTc Int : 447 ms Normal sinus rhythm Normal ECG No previous ECGs available Referred By: Dawson Cheatham Electronically Signed By:WARREN CARROLL
== END 2023-11-08 09:15 | disposition home or self-care (01) ==
LOC: HO.US 09:14
PROVIDERS: PCP Internal Medicine; Visit Provider Physician Assistant Surgical
DX: E66.01 Morbid (severe) obesity due to excess calories (principal)
CPT/HCPCS: 71046; 76700; 76981; 93005

== ENCOUNTER 2023-11-22 10:00 | Outpatient (AMB) | payer OTHER, SELFPAY ==
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
== END 2023-11-22 11:00 | disposition home or self-care (01) ==
LOC: HO.HBST 10:30
PROVIDERS: PCP Internal Medicine; Visit Provider Counselor Mental Health
DX: F32.A Depression, unspecified (principal)
CPT/HCPCS: 90837

== ENCOUNTER → 2023-11-22 10:00 | Outpatient (BNVA) | payer OTHER, SELFPAY | PROVIDERS: PCP Internal Medicine; Visit Provider Counselor Mental Health ==

== ENCOUNTER 2023-12-06 15:23 | Outpatient (AMB) | payer OTHER, SELFPAY ==
[2023-12-06 08:25] VITALS: BMI 45.8
--- NOTE | 2023-12-06 08:25 | MHC.OFFVISWM ---
VS Expanded 12/06/23 08:25 Height 5 ft 5 in Weight 275 lb 6 oz BMI 45.8 Body Fat % 61.3 Body Fat Mass 168.9 Fat Free Mass 106.6 Visceral Fat Rating 27 Body Water % 26.5 Body Water Mass 73 Muscle Mass/Score 100.2 Basal Metabolic Rate/Score 1,406 Intake Visit Reasons: TV F/U SWL Allergies No Known Allergies Allergy (Verified 10/06/23 10:21) HPI Comments Details: Patient is a 43-year-old female who returns to the office today in follow-up. She was initially seen on 10/28/2023 with a weight of 281 lb. Weight today is 275.6 lb with a BMI of 45.8. This corresponds to a 5.4 lb weight loss or 1.9% total body weight loss. She is using the right BMI elena Meal plan: 4 Pure protein 1/2 scoop with 8 oz oat milk 6-8, 9-11, 12-2, 3-5 meal around 4 pm 5 oz protein and 5 oz veg Drinking 64 oz Exercise PF, stationary bike, 4 days per week, 300 calories. cannot go more frequently, could do more calories floor exercises 170 el 2 days per week. [facility] Medical History (Updated 11/02/23 @ 13:05 by Hilary Eid [facility]) Morbid obesity Anemia IUD (intrauterine device) in place Heartburn Arthritis Back pain History of blood transfusion Depression Snores Smoker Hx of menorrhagia Sinusitis Anxiety Surgical History History of excision of mass (07/01/22) Hx of section Hx of tubal ligation Family History Mother HTN (hypertension) Diabetes Mental health disorder Substance use disorder Social History Household Members: Children Housing: Apartment Are you a primary patient care to a significant other at home: Yes (children 15 + 17 yrs old) Do you presently have visiting nurse or other home services: No Alcohol intake: former Patient Tobacco Use Status: Current everyday Tobacco user Tobacco use type: Cigarette Cigarettes Per Day: 10 Years Smoked: 7 e-Cigarette/Vaping Use: Never Used Second Hand Smoke Exposure: No service: No Current occupational status: employed Current occupation: [employer] Gender identity: Female Cognitive needs: No Hearing needs: No Vision needs: No Female Reproductive History Menstrual Age of Menarche: 15 Telehealth Telehealth Telehealth Platform: Telephone Location of provider rendering services: practice address Location of patient: address on file Patient Identification confirmed using: Name, : Yes Telehealth method: voice only Patient verbally consented to treatment: Yes Patient verbally consented to billing insurance company: Yes Patient informed of any privacy concerns related to visit: Yes Minutes spent on Phone/Video with Pt.: 12 Assessment & Plan Assessment & Plan (1) Obesity, morbid, BMI 40.0-49.9: Code(s): E66.01 - Morbid (severe) obesity due to excess calories Category: Medical Plan: Patient is doing well overall. I did encourage her to increase her exercise to add an additional 200 calories to 250 calories daily on the days that she goes to the gym by way of adding another cardiovascular activity. She will continue to do this. She will also continue to do her for exercises and this should account for a total of 2000 calories or more per week. She was encouraged to continue to text weekly and with any questions or concerns. We will have her continue to follow the right BMI elena for her meal plan. We will transfer to Dr. Price for continued preoperative surgical weight loss planning.
== END 2023-12-06 15:25 | disposition home or self-care (01) ==
LOC: HO.HBS 15:23
PROVIDERS: PCP Internal Medicine; Visit Provider Physician Assistant Surgical
DX: E66.01 Morbid (severe) obesity due to excess calories (principal)
CPT/HCPCS: 99213

== ENCOUNTER → 2023-12-06 15:23 | Outpatient (BNVA) | payer OTHER, SELFPAY | PROVIDERS: PCP Internal Medicine; Visit Provider Physician Assistant Surgical | DX: E66.01 Morbid (severe) obesity due to excess calories (principal) ==

== ENCOUNTER → 2023-12-13 10:22 | Outpatient (BNVA) | payer OTHER, SELFPAY | PROVIDERS: PCP Internal Medicine; Visit Provider Counselor Mental Health ==

== ENCOUNTER → 2023-12-13 10:22 | Outpatient (AMB) | payer OTHER, SELFPAY ==
--- NOTE | 2023-12-13 10:00 | A.OFFWM_ITS ---
Intake Intake Visit Reasons: VIDEO F/U Allergies No Known Allergies Allergy (Verified 10/06/23 10:21) [facility] Medical History (Updated 11/02/23 @ 13:05 by Hilary Eid [facility]) Morbid obesity Anemia IUD (intrauterine device) in place Heartburn Arthritis Back pain History of blood transfusion Depression Snores Smoker Hx of menorrhagia Sinusitis Anxiety Surgical History History of excision of mass (07/01/22) Hx of section Hx of tubal ligation Family History Mother HTN (hypertension) Diabetes Mental health disorder Substance use disorder Social History Household Members: Children Housing: Apartment Are you a primary resident care associate to a significant other at home: Yes (children 15 + 17 yrs old) Do you presently have visiting nurse or other home services: No Alcohol intake: former Patient Tobacco Use Status: Current everyday Tobacco user Tobacco use type: Cigarette Cigarettes Per Day: 10 Years Smoked: 7 e-Cigarette/Vaping Use: Never Used Second Hand Smoke Exposure: No service: No Current occupational status: employed 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 We discussed progress and ongoing issues with weight recording as her records ar different from provider. PT informed she is feeling annoyed about having multiple calls/sessions as part of this program, and would like to continue on her own. Pt informed that due to her MH hx support is required and letter from provider needs to be obtained. PT provided with psychoeducation about MH issues that might arise post-op and counseling for managing these Sx provided. Advised to continue services and F/up with providers as recommended. PT also advised to share her concerns about weight discrepancies from her measures and the program measures. No f/up elena given per client's preference. Clearance pending as we need a letter from her therapist. Presenting Concerns Referral Source [facility] Provider, PT saw MB on 10/28/2023. Her PCP told her about this program. Reason for referral Completion of behavioral health assessment as part of process for weight-loss surgery. Precipitating Event Obesity. PT reports she is tired to be fat and wants to like herself. Assessment & Plan Assessment & Plan (1) Depression: Code(s): F32.9 - Major depressive disorder, single episode, unspecified Qualifiers: Depression Type: unspecified Qualified Code(s): F32.A - Depression, unspecified Plan * This provider called the PT's therapist Darian Baehna from [facility], as patient verbally consented and with RYAN on file; a VM was left to provider requesting a call back to either fax letter or have a collateral to complete clearance. * Clearance pending upon receive of letter from provider or once collateral is done with provider. * PT was not given a f/up visit. And, addendum will be added to note once PT is cleared from standpoint. . Telehealth [facility] Location of provider rendering services: other Location of patient: address on file Patient Identification confirmed using: Name, : Yes Telehealth method: video Patient verbally consented to treatment: Yes Patient verbally consented to billing insurance company: Yes Patient informed of any privacy concerns related to visit: Yes Minutes spent on Phone/Video with Pt.: 30 Coding Level of Care Code Tele Psytx 30 mins ([id number]) Diagnoses Depression, unspecified depression type F32.A Depression Type: unspecified Time Spent (min) 30 Comment 8:00 - 8:30am.
== END ==
PROVIDERS: PCP Internal Medicine; Visit Provider Counselor Mental Health
DX: F32.A Depression, unspecified (principal)
CPT/HCPCS: 90832

== ENCOUNTER 2024-01-07 08:17 | Outpatient (AMB) | payer OTHER, SELFPAY ==
--- NOTE | 2024-01-07 14:05 | A.OFFVIS_ITS ---
VS Expanded 01/07/24 18:17 Height 5 ft 5 in Weight 262 lb 4 oz BMI 43.6 Body Fat % 57.9 Body Fat Mass 151.9 Fat Free Mass 110.4 Visceral Fat Rating 24 Body Water % 28.9 Body Water Mass 75.8 Basal Metabolic Rate/Score 1,442 Intake Visit Reasons: TV Consult / Transfer Dawson Allergies No Known Allergies Allergy (Verified 01/07/24 14:05) Medication List - Last Reconciled 01/07/24 by Bhupendra Price MD cholecalciferol (vitamin D3) 125 mcg PO DAILY 90 days fluoxetine 40 mg PO DAILY folic acid 1 mg PO DAILY levonorgestrel (Mirena) intrauterine lorazepam 0.5 mg PO BID PRN quetiapine 400 mg PO BEDTIME thiamine HCl (vitamin B1) 100 mg PO DAILY 90 days HPI HPI TV Consult / Transfer Dawson: Details: Start time: 1.40pm, end time: 2.10pm I spent 25 minutes speaking with the patient on the phone plus an additional 5 minutes reviewing and updating records for a total of 30 minutes HPI Comments Details: Overall weight loss: 27.6lbs, or 9.5% TBWL Is following a plan from the [employer] elena of 5 Pure protein shakes per day with 1/2 scoop each in 8oz oat milk and one meal (9 forks of protein and 9 forks of salad or vegetables) Exercise: home video exercises [facility] Medical History (Updated 11/02/23 @ 13:05 by Hilary Eid [facility]) Morbid obesity Anemia IUD (intrauterine device) in place Heartburn Arthritis Back pain History of blood transfusion Depression Snores Smoker Hx of menorrhagia Sinusitis Anxiety Surgical History History of excision of mass (07/01/22) Hx of section Hx of tubal ligation Family History Mother HTN (hypertension) Diabetes Mental health disorder Substance use disorder Social History Household Members: Children Housing: Apartment Are you a primary respiratory care practitioner to a significant other at home: Yes (children 15 + 17 yrs old) Do you presently have visiting nurse or other home services: No Alcohol intake: former Patient Tobacco Use Status: Current everyday Tobacco user Tobacco use type: Cigarette Cigarettes Per Day: 10 Years Smoked: 7 e-Cigarette/Vaping Use: Never Used Second Hand Smoke Exposure: No service: No Current occupational status: employed Current occupation: [employer] Gender identity: Female Cognitive needs: No Hearing needs: No Vision needs: No Female Reproductive History Menstrual Age of Menarche: 15 Telehealth Telehealth Telehealth Platform: Telephone Location of provider rendering services: practice address Location of patient: address on file Patient Identification confirmed using: Name, : Yes Telehealth method: voice only Patient verbally consented to treatment: Yes Patient verbally consented to billing insurance company: Yes Patient informed of any privacy concerns related to visit: Yes Minutes spent on Phone/Video with Pt.: 30 Assessment & Plan Assessment & Plan (1) Morbid obesity: Code(s): E66.01 - Morbid (severe) obesity due to excess calories Category: Medical Plan: 1. Plan for lap sleeve gastrectomy. If diaphragmatic or ventral hernias are present at time of surgery, these will be repaired laparoscopically as well. Risks and complications were discussed in detail including possible conversion to an open procedure, anastomotic leak, bleeding requiring transfusion, small bowel obstruction, , DVT and pulmonary embolism, cardiac, or pulmonary complications, as rn long term care complications such as anastomotic ulcer, insufficient weight loss and vitamin deficiencies. I emphasized the importance of close follow-up, adherence to instructions and good communication. 2. Continue present nutritional RightBMI elena plan of 5 Pure protein shakes per day with 1/2 scoop each in 8oz oat milk and one meal (9 forks of protein and 9 forks of salad or vegetables). 3. Continue home video exercise but recommended to cancel the Gym membership since it is difficult to get there and consider purchasing a stationary bike at home. 4. Continue to send me weight measurements weekly on Fridays
[2024-01-07 18:17] VITALS: BMI 43.6
== END 2024-01-07 18:24 | disposition home or self-care (01) ==
LOC: HO.HBS 08:17
PROVIDERS: PCP Internal Medicine; Visit Provider Surgery
DX: E66.01 Morbid (severe) obesity due to excess calories (principal)
CPT/HCPCS: 99214

== ENCOUNTER → 2024-01-07 08:17 | Outpatient (BNVA) | payer OTHER, SELFPAY | PROVIDERS: PCP Internal Medicine; Visit Provider Surgery ==

== ENCOUNTER 2024-01-11 08:43 | Day surgery (SDC) | payer OTHER, SELFPAY ==
[2024-01-07 11:07] VITALS: BMI 45.8
[2024-01-11 08:59] VITALS: BP 139/99; PULSE 102; RESP 20; TEMP 36.9; O2SAT 98; BMI 44.1
[2024-01-11] MEDS: Lactated Ringers 1,000 ML 80 ML IVCONT (09:31)
--- NOTE | 2024-01-11 10:35 | HO.ANESPROP2 ---
Documented by User: Michaela Win NP 01/10/24 09:45 HPI - Anesthesia Eval Consult details Narrative: 43yo F for Upper Endoscopy, 01/11/24 PMFSH Active Problems Active Problems: All Active Problems UTI (urinary tract infection) (Acute) Hematuria (Acute) Kidney stone (Acute) Malpositioned IUD (Acute) IUD check up (Acute) Endometrial polyp (Acute) Microscopic hematuria (Acute) Pain in pelvis (Acute) Sebaceous cyst (Acute) Breast cyst (Acute) Morbid obesity (Acute) Physical exam (Acute) Abnormal uterine bleeding (AUB) (Acute) Well woman exam (Acute) Shoulder pain (Acute) Physical exam (Acute) Neck pain (Acute) Obesity, morbid, BMI 40.0-49.9 (Acute) Cervical cancer screening (Acute) Well woman exam with routine gynecological exam (Acute) Depression (Acute) Past Medical History Medical History (Updated 11/02/23 @ 13:05 by Hilary Eid [facility]) Morbid obesity Anemia IUD (intrauterine device) in place Heartburn Arthritis Back pain History of blood transfusion Depression Snores Smoker Hx of menorrhagia Sinusitis Anxiety Family History Family History Mother HTN (hypertension) Diabetes Mental health disorder Substance use disorder Family history of problems with anesthesia: No Surgical History Surgical History History of excision of mass (07/01/22) Hx of section Hx of tubal ligation History of Problems with Anesthesia: No Social History Social History Household Members: Children Housing: Apartment Are you a primary long term care phlebotomist to a significant other at home: Yes (children 15 + 17 yrs old) Do you presently have visiting nurse or other home services: No Alcohol intake: former Patient Tobacco Use Status: Current everyday Tobacco user Tobacco use type: Cigarette Cigarettes Per Day: 10 Years Smoked: 7 e-Cigarette/Vaping Use: Never Used Second Hand Smoke Exposure: No Have you been hit, kicked, punched, or otherwise hurt by someone within the past year? 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 Gender identity: Female Cognitive needs: No Hearing needs: No Vision needs: No Meds Allergies Allergy/AdvReac Type Severity Reaction Status Date / Time No Known Allergies Allergy Verified 01/07/24 14:05 Home Medications ?Medication ?Instructions ?Recorded ?Confirmed ?Last Taken ?Type fluoxetine 40 mg capsule 40 mg PO DAILY 05/24/23 01/07/24 Unknown History quetiapine 200 mg tablet 400 mg PO BEDTIME 10/05/23 01/07/24 Unknown History levonorgestrel 21 mcg/24 hr (up to intrauterine 10/06/23 01/07/24 Unknown History 8 years) 52 mg intrauterine device (Mirena) lorazepam 0.5 mg tablet 0.5 mg PO BID PRN 01/07/24 01/07/24 Unknown History Exam Pertinent Lab Results Pertinent Lab Results: Laboratory Tests 11/02/23 11:08 WBC 8.7 Hgb 12.1 Hct 38.4 Plt Count 326 Sodium 139 Potassium 4.4 Chloride 106 Carbon Dioxide 23 BUN 11 Creatinine 0.86 Narrative Narrative: EKG 10/2023 Vent. Rate : 096 BPM Atrial Rate : 096 BPM P-R Int : 136 ms QRS Dur : 078 ms QT Int : 354 ms P-R-T Axes : 048 017 006 degrees QTc Int : 447 ms Normal sinus rhythm Normal ECG No previous ECGs available Assessment and Plan Assessment Anesthesia Assessment: Chart Reviewed Final Anesthetic Review Family History of Problems with Anesthesia: No History of Problems with Anesthesia: No Documented by User: Sagrario Dai DO 01/11/24 10:35 [facility] Past Medical History Medical History (Updated 11/02/23 @ 13:05 by Hilary Eid [facility]) Morbid obesity Anemia IUD (intrauterine device) in place Heartburn Arthritis Back pain History of blood transfusion Depression Snores Smoker Hx of menorrhagia Sinusitis Anxiety Family History Family History Mother HTN (hypertension) Diabetes Mental health disorder Substance use disorder Family history of problems with anesthesia: No Surgical History Surgical History History of excision of mass (07/01/22) Hx of section Hx of tubal ligation History of Problems with Anesthesia: No Social History Social History Household Members: Children Housing: Apartment Are you a primary long term care phlebotomist to a significant other at home: Yes (children 15 + 17 yrs old) Do you presently have visiting nurse or other home services: No Alcohol intake: former Patient Tobacco Use Status: Current everyday Tobacco user Tobacco use type: Cigarette Cigarettes Per Day: 10 Years Smoked: 7 e-Cigarette/Vaping Use: Never Used Second Hand Smoke Exposure: No Have you been hit, kicked, punched, or otherwise hurt by someone within the past year? If so, by whom?: No Are you DNR?: No Advance Directives: No Advance Directives Information Provided: Yes Recently lost weight without trying: Yes How much weight loss: 2-13 pounds Patient : No service: No Current occupational status: employed Current occupation: [employer] Gender identity: Female Cognitive needs: No Hearing needs: No Vision needs: No Meds Allergies Allergy/AdvReac Type Severity Reaction Status Date / Time No Known Allergies Allergy Verified 01/07/24 14:05 Home Medications ?Medication ?Instructions ?Recorded ?Confirmed ?Last Taken ?Type fluoxetine 40 mg capsule 40 mg PO DAILY 05/24/23 01/07/24 Unknown History quetiapine 200 mg tablet 400 mg PO BEDTIME 10/05/23 01/07/24 Unknown History levonorgestrel 21 mcg/24 hr (up to intrauterine 10/06/23 01/07/24 Unknown History 8 years) 52 mg intrauterine device (Mirena) lorazepam 0.5 mg tablet 0.5 mg PO BID PRN 01/07/24 01/07/24 Unknown History Exam Exam Date and Time: 01/11/24 1030 Height,Weight and Vital Signs: Height 5 ft 5 in Weight 120.202 kg Vital Signs Temperature 98.5 F 01/11/24 08:59 Pulse Rate 102 H 01/11/24 08:59 Respiratory Rate 20 10/29/24 08:59 Blood Pressure 139/99 H 01/11/24 08:59 Pulse Oximetry 98 01/11/24 08:59 Oxygen Delivery Method Room Air 01/11/24 08:59 Temperature 98.5 F 01/11/24 08:59 Pulse Rate 102 H 01/11/24 08:59 Respiratory Rate 20 01/11/24 08:59 Blood Pressure 139/99 H 01/11/24 08:59 Pulse Oximetry 98 01/11/24 08:59 Oxygen Delivery Method Room Air 01/11/24 08:59 Airway Mallampati Class: II TM Dist: >3cm Neck ROM: Full Loose/Missing/Broken Teeth: No (patient denies any loose or broken teeth) Heart: S1S2 Lungs: CTAB Assessment and Plan Assessment Anesthesia Assessment: Anesthesia Plan Discussed and Chart Reviewed Final Anesthetic Review Family History of Problems with Anesthesia: No History of Problems with Anesthesia: No NPO: Yes ASA Class: III Final Preanesthetic Review: No Changes in Pt Med Stat, Meds/Allgs Chart Reviewed, Consent Obtained/Reviewed and Anes Risks/Benef Reviewed Patient Risk: Intermediate Procedure Risk: Low Anesthetic Plan Anesthetic Plan: MAC: and Agree w/ Assess. and Plan Disposition: Standard PACU
--- NOTE | 2024-01-11 10:36 | PM.OP ---
Brief Operative Note Date of Service: 01/11/24 Pre-op diagnosis: GERD Post-op diagnosis: same Procedure: PROCEDURE DATE: 06/19/2021 PREOPERATIVE DIAGNOSIS: GERD POSTOPERATIVE DIAGNOSIS: ?Same as above. Normal endoscopy PROCEDURE: Ldvzaecu-iwbyyf-tycnsjmurnii with biopsies Surgeon: Tien Price M.D.. Ph.D. Market Risk Analyst: None ? Anesthesia: IV sedation Estimated blood loss: ?Minimal FINDINGS AND PROCEDURE: ? OPERATIVE INDICATIONS: ?The patient is a 43 year old female known to me who is interested in bariatric surgery. The patient has GERD. Based on this information I recommended an upper endoscopy to evaluate the patient's symptoms. Risks and complications of the surgery were discussed with the patient in advance particularly the possibility of perforation or bleeding that may require surgical intervention. The patient understood the risks and was in agreement with the plan. ? PROCEDURE: After informed consent was obtained by the patient, the patient was ?transferred to the Operating Room and was placed in the supine position.? After successful induction of IV sedation, a mouth block was inserted and the patient was placed in the left lateral decubitus position. An upper endoscopy was performed next, the oropharynx and esophagus appeared within the normal limits. There was no hiatal hernia. The z-line was smooth. Two biopsies were obtained from the distal esophagus 2-3 cm proximal to the GE junction and two additional biopsies from the GE junction. The stomach was entered and it appeared to be of normal size. There was no gastritis. There was no stricture or ulcer. A biopsy was obtained from the gastric fundus and antrum. No significant bleeding was noted from any of the biopsy sites. Retroflexion of the scope revealed a normal GE junction. The scope was then advanced into the duodenum which appeared to be normal as well. At that point the duodenum ?and the stomach were decompressed and the scope was withdrawn from the patient's mouth. The patient extubated and was transferred in stable condition to the Recovery Room for further care. I was present and performed all steps of the procedure. There were no residents to assist with this case. Manolo Price M.D., Ph.D. Surgeon: Bhupendra Price MD Anesthesia: MAC Was an Market Risk Analyst used for this Procedure?: No Estimated blood loss (mL): 0 IV fluids (mL): 400 Urine output (mL): 0 (No [place] to record output) Pathology: other (1) antrum x1, 2) fundus x1, 3) GE junction x2, 4) distal esophagus x2) Condition: stable Disposition: PACU
--- NOTE | 2024-01-11 10:46 | MHC.SHP ---
Pre-Procedural Eval Section A - 24 Hr Update-Section A only Date of Service: 01/11/24 The patient is an INPATIENT: No The patient has been examined within 24 hours of the surgical procedure. The History & Physical has been completed within 30 days and I have reviewed it.: No Section B - Complete if H&P > 30 days Chief Complaint: Morbid (severe) obesity due to excess calories Details of Present Illness: GERD Relevant Family History (Specify if Yes): No Relevant Social History: None Present Medications: None Medical History: No relevant PMH History of Previous Operations: No relevant previous surgery Allergies: Allergies Allergy/AdvReac Type Severity Reaction Status Date / Time No Known Allergies Allergy Verified 01/07/24 14:05 Review of Systems Sugical H&P ROS: Negative: Constitution, Cardiovascular, Respiratory, Neurological, Psychiatric, Hem-Onc, Allergic/Immunologic, Gastrointestinal, Genitourinary, Musculoskeletal, Integumentary, Endocrine and Eyes/Ears/Nose/Throat Exam Surgical H&P Exam: Normal: HEENT, Normal: Heart, Normal: Lungs, Normal: Extremities, Normal: Abdomen, Normal: Skin and Normal: Neurological Plan Diagnosis/Plan: Unchanged (EGD to assess etiology of GERD. Risks of bleeding and perforation were discussed with the patient and she is in agreement with the plan.) I have reviewed the history and physical and performed a pertinent physical examination on my patient. No changes have occurred unless specified. Time Spent With Patient Time: Total time managing care of this patient today ____ minutes.
[2024-01-11 11:11] VITALS: BP 108/67; PULSE 78; RESP 18; TEMP 36.1; O2SAT 97
[2024-01-11 11:26] VITALS: BP 117/79; PULSE 79; RESP 16; O2SAT 98
[2024-01-11 11:40] VITALS: BP 115/76; PULSE 83; RESP 18; TEMP 36.1; O2SAT 99
== END 2024-01-11 12:06 | disposition home or self-care (01) ==
PROVIDERS: PCP Internal Medicine; Visit Provider Surgery
PROC: 0DJ08ZZ Inspection of Upper Intestinal Tract, Via Natural or Artificial Opening Endoscopic (ICD-10-PCS; CPT 43235; principal; 2024-01-11 10:50)
DX: K21.9 Gastro-esophageal reflux disease without esophagitis (principal); E66.01 Morbid (severe) obesity due to excess calories; Z68.41 Body mass index [BMI] 40.0-44.9, adult; D64.9 Anemia, unspecified; F32.A Depression, unspecified; Z79.899 Other long term (current) drug therapy; F17.210 Nicotine dependence, cigarettes, uncomplicated; Z98.890 Other specified postprocedural states
CPT/HCPCS: 43239; 88305; 88313; 88342; J1596; J2003; J2704

== ENCOUNTER → 2024-01-11 08:43 | Outpatient (BNV) | payer OTHER, SELFPAY | PROVIDERS: PCP Internal Medicine; Visit Provider Surgery | DX: K21.9 Gastro-esophageal reflux disease without esophagitis (principal) | CPT/HCPCS: 43239 ==

== ENCOUNTER 2024-01-14 08:23 | Outpatient (REF) | payer OTHER, SELFPAY ==
--- NOTE | ~2024-01-14 | FL_ITS ---
EXAMINATION: XR FLUOROSCOPY UPPER GI WITH AIR CLINICAL INFORMATION: Preoperative evaluation prior to bariatric surgery COMPARISON: None TECHNIQUE: Fluoroscopic air contrast upper GI examination was performed utilizing standard techniques with thin and thick barium and effervescent granules. Numerous spot images were obtained. FINDINGS: Dual and single contrast images of the esophagus demonstrate normal caliber, contour, and mucosal pattern. No masses or ulcerations are seen. There is mild narrowing of the GE junction, that likely represents achalasia. Esophageal peristalsis was mildly disorganized. No evidence of hiatus hernia identified. No significant gastroesophageal reflux was seen during the course of the examination and on reflux views. Dual contrast and single contrast images of the stomach demonstrated normal contour and mucosal pattern without evidence of mass, ulceration, or other abnormality. Contrast freely passed into the gastric antrum and duodenal bulb without delay. Single and air-contrast images of the duodenal bulb demonstrate no abnormality. The duodenal sweep has a normal appearance, course, and mucosal fold appearance. The imaged proximal jejunum has a normal fold pattern and caliber. FLUOROSCOPY TIME: 3 minutes 45 seconds Number of Spot Images: 7 Number of Cine: 12 DOSE AREA PRODUCT: [id number] uGy-m2 (microgray-meter squared) FL/FL upper GI w air IMPRESSION: 1. Mild narrowing of the GE junction, likely representing mild achalasia. 2. Mild esophageal dysmotility. No esophageal mucosal abnormalities or masses. 3. Normal stomach, duodenum, and proximal small bowel. This procedure was performed by Peña Bowman PA-C, and supervised by Dr. Fowler Electronically signed by: Edgar Fowler MD 01/14/2024 12:17 PM EDT
== END 2024-01-14 08:24 | disposition home or self-care (01) ==
LOC: HO.XRAY 08:23
PROVIDERS: PCP Internal Medicine; Visit Provider Physician Assistant Surgical
DX: E66.01 Morbid (severe) obesity due to excess calories (principal)
CPT/HCPCS: 74246

== ENCOUNTER → 2024-01-14 08:25 | Outpatient (BNV) | payer OTHER, SELFPAY | PROVIDERS: PCP Internal Medicine; Visit Provider Physician Assistant Surgical | DX: E66.01 Morbid (severe) obesity due to excess calories (principal); Z01.818 Encounter for other preprocedural examination | CPT/HCPCS: 74246 ==

== ENCOUNTER 2024-02-21 16:13 | Outpatient (AMB) | payer OTHER, SELFPAY ==
--- NOTE | 2024-02-20 21:57 | A.OFFVIS_ITS ---
Intake Visit Reasons: 12w/L[facility] results Intake Note: Patient is present for Follow up Urology Med: None Antibiotic Allergy: None Blood Thinner: None Allergies No Known Allergies Allergy (Verified 01/07/24 14:05) HPI Comments Details: 02/21/2024--telehealth--Carmen is a 43 y/o female followed for nephrolithiasis. Currently on a protein diet lost 40 lb considering the weight loss surgery down to 250 lb. [facility]olink== results not evaluated due to over 26 hours. She states she received another kit from [facility]. Reviewed that CT in August 1-2 mm left kidney stone will recheck kidneys in 6 months with a renal ultrasound. Review of chart: 09/24/23--here for cystoscopy. Reviewed with patient CT small kidney stone. Patient states she just started her menstrual cycle. She had Mirena placed due to vaginal bleeding. Cystoscopy findings bladder wall thickening erythematous changes consistent with cystitis. Ceftin 500 mg twice a day for 7 days sent to the pharmacy. Discussed 24 hour urine collection. 08/20/23--Sherri is a 43-year-old female who presents as a telehealth new patient visit for evaluation for microscopic hematuria. Comorbidity nicotine dependence. 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 She denies gross hematuria. No complaints of irritative voiding symptoms. I Discussed reasons for blood in the urine may include but are not limited to kidney stones, cancer in the urinary tract, BPH, kidney stone disease or inflammatory conditions of the urinary tract. I have discussed workup to in clude cystoscopy evaluation. I reviewed with the patient recent CT scan abdomen and pelvis imaging, with and without IV contrast, kidneys no masses or hydronephrosis, 1-2 mm left kidney lower pole stone. [facility] Medical History Morbid obesity Anemia IUD (intrauterine device) in place Heartburn Arthritis Back pain History of blood transfusion Depression Snores Smoker Hx of menorrhagia Sinusitis Anxiety Surgical History History of excision of mass (07/01/22) Hx of section Hx of tubal ligation Family History Mother HTN (hypertension) Diabetes Mental health disorder Substance use disorder Social History Household Members: Children Housing: Apartment Are you a primary care attendant to a significant other at home: Yes (children 15 + 17 yrs old) Do you presently have visiting nurse or other home services: No Alcohol intake: former Patient Tobacco Use Status: Current everyday Tobacco user Tobacco use type: Cigarette Cigarettes Per Day: 10 Years Smoked: 7 e-Cigarette/Vaping Use: Never Used Second Hand Smoke Exposure: No service: No Current occupational status: employed Current occupation: [employer] Gender identity: Female Cognitive needs: No Hearing needs: No Vision needs: No Female Reproductive History Menstrual Age of Menarche: 15 Review of Systems Const All systems reviewed & are unremarkable except as noted in HPI and below Reports no additional complaints Eyes Reports no additional complaints ENT Reports no additional complaints Card Reports no additional complaints Resp Reports no additional complaints GI Reports no additional complaints Reports as per HPI Musc Reports no additional complaints Skin/Breast Reports system reviewed and no additional complaints, except as documented Neuro Reports no additional complaints Psych Reports no additional complaints Endo Reports no additional complaints Usman/Lymph Reports no additional complaints Aller/Immun Reports no additional complaints Telehealth Telehealth Telehealth Platform: [employer] Location of provider rendering services: practice address Location of patient: address on file Patient Identification confirmed using: Name, : Yes Telehealth method: voice only Patient verbally consented to treatment: Yes Patient verbally consented to billing insurance company: Yes Patient informed of any privacy concerns related to visit: Yes Minutes spent on Phone/Video with Pt.: 18 Results Reviewed Results Reviewed: Date of Service: 08/11/23 EXAMINATION: CT ABDOMEN AND PELVIS WITHOUT AND WITH CONTRAST CLINICAL INFORMATION: Microscopic hematuria COMPARISON: Previous pelvic ultrasound most recent May 2023 TECHNIQUE: Multidetector volumetric imaging was performed of the abdomen and pelvis before and after the IV administration of 85 mL of Omnipaque 350 intravenous contrast. Sagittal and coronal reformatted images were obtained on the technologist's workstation. This CT examination was performed using dose optimization techniques as appropriate, variously including the following: *Automated exposure control *Adjustment of mA and/or kV according to patient size (this includes techniques or standardized protocols for targeted exams where dose is matched to indication/reason for exam; i.e. extremities or head) *Use of iterative reconstruction technique DLP: 1366 mGy-cm FINDINGS: LUNG BASES: The visualized lung bases are unremarkable. LIVER, GALLBLADDER, AND BILIARY TREE: The liver is normal in size, shape, and attenuation. No focal hepatic lesion or biliary ductal dilatation is present. The gallbladder is unremarkable with no evidence of radiopaque gallstones, gallbladder wall thickening, or obvious pericholecystic inflammatory changes. PANCREAS: Unremarkable SPLEEN: Unremarkable ADRENAL GLANDS: Unremarkable KIDNEYS AND URETERS: Small 1 to 2 mm nonobstructing stone in the lower pole of the left kidney. Kidneys are otherwise normal. The collecting systems are normal. No hydronephrosis. The ureters are not optimally opacified with excreted contrast. BLADDER: Unremarkable GASTROINTESTINAL TRACT: The small and large bowel are unremarkable. The appendix is unremarkable. ABDOMINAL WALL: Diastases of the rectus muscles. LYMPH NODES: Normal VASCULAR: Unremarkable PELVIC VISCERA: There is a new IUD in the uterus. This may be flipped with the horizontal limbs inferiorly and the vertical stem of the IUD toward the uterine fundus. This could be better evaluated with pelvic ultrasound. Small left ovarian cyst. No imaging follow-up recommended. OSSEOUS STRUCTURES: Unremarkable IMPRESSION: Small nonobstructing left renal stone. Otherwise unremarkable CT IVP. New IUD in the uterus. The IUD may be flipped with horizontal limbs inferiorly and stem of the IUD in the uterine fundus. As could be better evaluated with pelvic ultrasound. Assessment & Plan Assessment & Plan (1) Kidney stone: Code(s): N20.0 - Calculus of kidney Category: Medical Plan Repeat 24 hr urine. Monitor Kidneys Orders: Orders US renal BI 4 Months N20.0 - Calculus of kidney Patient Instructions: The patient had an opportunity to ask questions regarding treatment plan. The patient expressed understanding and agreement with the above treatment plan. The patient is aware they should contact our office by phone for worsening of their current condition or the appearance of new symptoms. Compliance is encouraged with any medications and followup testing that is ordered. It is a privilege to be allowed the opportunity to participate in the urologic care of your patient. If you have any questions or concerns regarding treatment for the above conditions please do not hesitate to contact me. The office telephone contact is [phone]. This note is constructed in part using voice recognition software. While every effort has been made to ensure accuracy telemarketing fundraiser errors may have been included. Yours sincerely, Anjana Díaz MD Coding Level of Care Code Tele Est Pt Level 4 (66545) Diagnoses Kidney stone N20.0
== END 2024-02-21 16:30 | disposition home or self-care (01) ==
LOC: HO.HUSH 16:13
PROVIDERS: PCP Internal Medicine; Visit Provider Urology
DX: N20.0 Calculus of kidney (principal)
CPT/HCPCS: 99214

== ENCOUNTER 2024-03-23 13:44 | Outpatient (AMB) | payer OTHER, SELFPAY ==
--- NOTE | 2024-03-23 13:46 | MHC.PC.OV ---
Vital Signs 03/23/24 13:47 Height 5 ft 5 in Weight 251 lb BMI 41.8 BP 146/88 H Blood Pressure Location Lt brachial Position Sitting Pulse 90 Pulse Source Pulse Oximeter Pulse Oximetry (%) 99 Oxygen Delivery Method Room Air Intake Visit Reasons: rt nipple bloody discharge Water/Wastewater Engineer Required: No Accompanied by: Self / Same As Patient Allergies No Known Allergies Allergy (Verified 03/23/24 13:50) Tobacco use date assessed: 03/23/24 Dental Screening Dental Screen Date: 03/23/24 Did you have a dental visit in the last 12 months?: No Did you have a dental problem in the last 6 months where you did not have access to dental care?: No Was dental information given to patient?: Patient has dentist HPI rt nipple bloody discharge HPI Details bloody discharge from right nipple for a few months PFSH Medical History Morbid obesity Anemia IUD (intrauterine device) in place Heartburn Arthritis Back pain History of blood transfusion Depression Snores Smoker Hx of menorrhagia Sinusitis Anxiety Surgical History History of excision of mass (07/01/22) Hx of section Hx of tubal ligation Family History Mother HTN (hypertension) Diabetes Mental health disorder Substance use disorder Social History Household Members: Children Housing: Apartment Are you a primary progressive care manager to a significant other at home: Yes (children 15 + 17 yrs old) Do you presently have visiting nurse or other home services: No Alcohol intake: former Patient Tobacco Use Status: Current everyday Tobacco user Tobacco use type: Cigarette Cigarettes Per Day: 10 Years Smoked: 7 e-Cigarette/Vaping Use: Never Used Second Hand Smoke Exposure: No service: No Current occupational status: employed Current occupation: [employer] Gender identity: Female Cognitive needs: No Hearing needs: No Vision needs: No Female Reproductive History Menstrual Age of Menarche: 15 Questionnaire PHQ-9 Over the last 2 weeks, how often have you been bothered by any of the following problems? 1. Little interest or pleasure in doing things: not at all 2. Feeling down, depressed, or hopeless: several days 3. Trouble falling or staying asleep, or sleeping too much: not at all 4. Feeling tired or having little energy: not at all 5. Poor appetite or overeating: not at all 6. Feeling bad about yourself - or that you are a failure or have let yourself or your family down: not at all 7. Trouble concentrating on things, such as reading the newspaper or watching television: not at all 8. Moving or speaking so slowly that other people could have noticed. Or the opposite - being so fidgety or restless that you have been moving around a lot more than usual: not at all 9. Thoughts that you would be better off or of hurting yourself in some way: not at all Total score: 1 Depression Screening Interpretation: Positive Depression Screening Done: Yes Source: Developed by Drs. Luis Ferrari, Yasmeen Bryan, Laurent Brumfield and colleagues, with an educational emilee from [employer]. Thrive Questionnaire Date Thrive assessed: 03/23/24 I am a: Patient What is your living situation today?: I have a steady place to live Within the past 12 months, did the food you bought not last and you didn't have the money to get more?: Never true Within the past 12 months, did you worry whether your food would run out before you got money to buy more?: Never true Do you have trouble paying for medicines?: No Do you have trouble getting transportation to medical appointments?: No Do you have trouble paying your heating and electricity bill?: No Do you have trouble taking care of your child, family member or friend?: No Do you have trouble with day-to-day activities such as bathing, preparing meals, shopping, managing finances, etc.?: No Are you currently unemployed and looking for a job?: No Are you interested in more education?: No Please select the resources that you would like help with: None Currently or been in a relationship where the following occur: No concerns reported THRIVE Score: 0 AUDIT C Alcohol Use Questionnaire (AUDIT-C) 1. How often do you have a drink containing alcohol?: Never Total Score: 0 COLEMAN-7 AMB Questionnaire COLEMAN-7 Date COLEMAN - 7 assessed: 03/23/24 (existing condition, pt is taking medication ) Feeling nervous, anxious, or on edge: 1 = Several days Not being able to stop or control worryin = Not at all Worrying too much about different things: 0 = Not at all Trouble relaxin = Not at all Being so restless that it is hard to sit still: 0 = Not at all Becoming easily annoyed or irritable: 0 = Not at all Feeling afraid as if something awful might happen: 0 = Not at all Total COLEMAN-7 score (0-4 normal; 5-9 mild; 10-14 moderate; 15-21 severe): 1 Source: Developed by Drs. Luis Ferrari, Yasmeen Bryan, Laruent Brumfield and colleagues, with an educational emilee from [employer]. Review of Systems Const Denies chills, Denies headache(s) and Denies weight loss ENT Denies headache(s) Card Denies chest pain, Denies syncope, Denies irregular heart rhythm and Denies dyspnea Resp Denies chest congestion, Denies cough and Denies dyspnea GI Denies abdominal pain, Denies change in stool character, Denies nausea and Denies vomiting Musc Denies deformity and Denies joint swelling Neuro Denies syncope and Denies headache(s) Physical exam (Primary Care) Vital Signs: Last Vital Signs Pulse 90 03/23/24 13:47 BP 146/88 H 03/23/24 13:47 Pulse Ox 99 03/23/24 13:47 Oxygen Delivery Method Room Air 03/23/24 13:47 BMI result Body Mass Index 41.8 Tobacco/Smoking Status: Tobacco use Status Tobacco use date assessed 03/23/24 03/23/24 13:51 Patient Tobacco Use Status Current everyday Tobacco 03/23/24 13:47 Tobacco use type Cigarette 03/23/24 13:47 e-Cigarette/Vaping Use Never Used 03/23/24 13:47 PHQ-9: PHQ-9 Score PHQ-9: Total score 1 03/23/24 13:51 Depression Screening Interpretation: Positive Thrive Assessment: Date of Thrive Assessment Date Thrive assessed 03/23/24 03/23/24 13:47 Currently or been in a relationship where the following occur: No concerns reported Const General: cooperative, comfortable, no acute distress and alert Neck Neck: Yes no lymphadenopathy Thyroid: Thyroid normal Resp Effort & Inspection: normal respiratory effort Auscultation: clear to auscultation bilaterally Percussion: percussion normal Cardio Jugular venous distension: no JVD Palpation: normal PMI Rate: regular rate Rhythm: regular rhythm Heart sounds: S1 normal heart sound present and S2 normal heart sound present GI Inspection: Yes normal to inspection Palpation (GI): No hepatosplenomegaly present Skin General skin exam: no rashes or lesions noted Extrem General: Yes no clubbing, cyanosis or edema Coding Level of Care Code Est Pt Level 3 (45454) Diagnoses Nipple discharge, bloody N64.52 Assessment & Plan Assessment & Plan (1) Nipple discharge, bloody: Code(s): N64.52 - Nipple discharge Plan: mammogram Orders: Orders MM tomosynthesis diagnostic BI 03/23/24 N64.52 - Nipple discharge
[2024-03-23 13:47] VITALS: BP 146/88; PULSE 90; O2SAT 99; BMI 41.8
== END 2024-03-23 14:02 | disposition home or self-care (01) ==
PROVIDERS: PCP Internal Medicine; Visit Provider Internal Medicine
DX: N64.52 Nipple discharge (principal)

== ENCOUNTER → 2024-03-23 13:44 | Outpatient (BNVA) | payer OTHER, SELFPAY | PROVIDERS: PCP Internal Medicine; Visit Provider Internal Medicine | DX: N64.52 Nipple discharge (principal) | CPT/HCPCS: 99212 ==

== ENCOUNTER → 2024-04-19 13:30 | Outpatient (BNV) | payer OTHER, SELFPAY | PROVIDERS: PCP Internal Medicine; Visit Provider Internal Medicine | DX: N64.52 Nipple discharge (principal) | CPT/HCPCS: 76642; 77062; 77066 ==

== ENCOUNTER 2024-05-11 14:25 | Outpatient (REF) | payer OTHER, SELFPAY ==
[2024-05-11 14:54] LABS: Carbon Monoxide Refer to POC result; Carbon Monoxide POC 1.6 %
[2024-05-17 00:52] LABS: Cotinine, U 2023 ng/mL; Nicotine, U 163 ng/mL
== END 2024-05-11 14:26 | disposition home or self-care (01) ==
LOC: HO.LAB 14:25
PROVIDERS: PCP Internal Medicine; Visit Provider Surgery
DX: Z87.891 Personal history of nicotine dependence (principal)
CPT/HCPCS: 80323; 82375

== ENCOUNTER 2024-05-22 08:49 | Outpatient (REF) | payer OTHER, SELFPAY ==
[2024-05-28 03:44] LABS: Cotinine, U 3380 ng/mL; Nicotine, U 361 ng/mL
== END 2024-05-22 08:50 | disposition home or self-care (01) ==
LOC: HO.LAB 08:49
PROVIDERS: Visit Provider Physician Assistant Surgical
DX: Z01.818 Encounter for other preprocedural examination (principal)
CPT/HCPCS: 80323

== ENCOUNTER 2024-07-07 11:02 | Outpatient (REF) | payer OTHER, SELFPAY ==
--- NOTE | ~2024-07-07 | US_ITS ---
CLINICAL HISTORY: N20.0 - Calculus of kidney US Renal Comparison: None Findings: Right kidney normal size and echotexture, 12 cm length. Left kidney normal size and echotexture, 11.4 cm length. No hydronephrosis or renal mass lesion. IMPRESSION: 1. Normal kidneys. This document has been electronically signed by: Doretha Knott MD on 07/10/2024 10:49:14
== END 2024-07-07 11:03 | disposition home or self-care (01) ==
LOC: HO.US 11:02
PROVIDERS: Visit Provider Urology
DX: N20.0 Calculus of kidney (principal)
CPT/HCPCS: 76775

== ENCOUNTER → 2024-07-07 11:05 | Outpatient (BNV) | payer OTHER, SELFPAY | PROVIDERS: Visit Provider Radiology Diagnostic Radiology | DX: N20.0 Calculus of kidney (principal) | CPT/HCPCS: 76775 ==

== ENCOUNTER 2024-09-12 09:50 | Outpatient (AMB) | payer OTHER, SELFPAY ==
[2024-09-12 09:51] VITALS: BP 162/104; PULSE 84; TEMP 36.1; O2SAT 99; BMI 45.4
--- NOTE | 2024-09-12 09:51 | A.OFFPC_ITS ---
Vital Signs 09/12/24 09:51 Height 5 ft 5 in Weight 273 lb BMI 45.4 BP 162/104 H Blood Pressure Location Lt brachial Position Sitting Pulse 84 Pulse Source Pulse Oximeter Temp 97.0 F Temp Source Temporal Artery Scan Pulse Oximetry (%) 99 Oxygen Delivery Method Room Air Intake Visit Reasons: JOVANNA Dr Shen Accompanied by: Daughter Allergies No Known Allergies Allergy (Verified 09/12/24 10:16) Medication List - Last Reconciled 09/12/24 by KENDELL Singer cholecalciferol (vitamin D3) 125 mcg PO DAILY 90 days levonorgestrel (Mirena) intrauterine lorazepam 0.5 mg PO BID PRN nortriptyline 10 mg PO QAM quetiapine 400 mg PO BEDTIME thiamine HCl (vitamin B1) 100 mg PO DAILY 90 days Tobacco use date assessed: 09/12/24 Dental Screening Dental Screen Date: 09/12/24 Did you have a dental visit in the last 12 months?: No Did you have a dental problem in the last 6 months where you did not have access to dental care?: No Was dental information given to patient?: Patient declined HPI JOVANNA Dr Shen HPI Details The patient is a 44-year-old female presenting with anxiety and shoulder pain. She is transitioning care from Dr. Shen who retired. The patient reports experiencing anxiety, which has been exacerbated by running out of her prescribed lorazepam medication. She goes to [facility] and sees Dr. Edgar Monzon every three months for her anxiety management and has a therapist, Linh Julien, whom she visits every two weeks. The patient has a history of hypertension, which was noted to be elevated during this visit, possibly due to lack of sleep and anxiety. The patient has a history of anemia, which was previously managed with iron supplements. She had a blood transfusion last year due to heavy menstrual bleeding, which has since been managed with a Mirena IUD. She also has a history of vitamin D and folate deficiencies, which were noted in her labs from last year. The patient reports chronic shoulder pain that radiates to her neck, causing headaches. She has undergone chiropractic treatment and physical therapy in the past, but the pain persists, especially at night, affecting her sleep. She has been advised to maintain exercises learned from physical therapy to alleviate the pain. The patient has a history of kidney stones, with a recent ultrasound showing no current stones. She also reports elevated intraocular pressure, which is being monitored by her plug sorter. 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 She has been advised to use moisturizers to manage the dryness. [facility] Medical History (Updated 09/13/24 @ 06:09 by KENDELL Singer) Morbid obesity Anemia IUD (intrauterine device) in place Heartburn Arthritis Back pain History of blood transfusion Depression Snores Smoker Hx of menorrhagia Sinusitis Anxiety Surgical History History of excision of mass (07/01/22) Hx of section Hx of tubal ligation Family History Mother HTN (hypertension) Diabetes Mental health disorder Substance use disorder Social History Household Members: Children Housing: Apartment Are you a primary student career development specialist to a significant other at home: Yes (children 15 + 17 yrs old) Do you presently have visiting nurse or other home services: No Alcohol intake: former Patient Tobacco Use Status: Current everyday Tobacco user Tobacco use type: Cigarette Cigarettes Per Day: 10 Years Smoked: 7 e-Cigarette/Vaping Use: Never Used Second Hand Smoke Exposure: No service: No Current occupational status: employed Current occupation: [employer] Gender identity: Female Cognitive needs: No Hearing needs: No Vision needs: No Female Reproductive History Menstrual Age of Menarche: 15 Questionnaire PHQ-9 Over the last 2 weeks, how often have you been bothered by any of the following problems? 1. Little interest or pleasure in doing things: nearly every day 2. Feeling down, depressed, or hopeless: nearly every day 3. Trouble falling or staying asleep, or sleeping too much: nearly every day 4. Feeling tired or having little energy: nearly every day 5. Poor appetite or overeating: nearly every day 6. Feeling bad about yourself - or that you are a failure or have let yourself or your family down: nearly every day 7. Trouble concentrating on things, such as reading the newspaper or watching television: nearly every day 8. Moving or speaking so slowly that other people could have noticed. Or the opposite - being so fidgety or restless that you have been moving around a lot more than usual: not at all 9. Thoughts that you would be better off or of hurting yourself in some way: not at all Total score: 21 Depression Screening Interpretation: Positive Depression Screening Done: Yes Source: Developed by Drs. Luis Ferrari, Yasmeen Bryan, Laurent Brumfield and colleagues, with an educational emilee from [employer]. Thrive Questionnaire Date Thrive assessed: 09/12/24 I am a: Patient What is your living situation today?: I have a place to live, but I am worried about losing it in the future Within the past 12 months, did the food you bought not last and you didn't have the money to get more?: Often true Within the past 12 months, did you worry whether your food would run out before you got money to buy more?: Often true Do you have trouble paying for medicines?: No Do you have trouble getting transportation to medical appointments?: No Do you have trouble paying your heating and electricity bill?: Yes Do you have trouble taking care of your child, family member or friend?: I choose not to answer this question Do you have trouble with day-to-day activities such as bathing, preparing meals, shopping, managing finances, etc.?: I choose not to answer this question Are you currently unemployed and looking for a job?: I choose not to answer this question Are you interested in more education?: I choose not to answer this question Please select the resources that you would like help with: Utilities Currently or been in a relationship where the following occur: I choose not to answer THRIVE Score: 4 AUDIT C Alcohol Use Questionnaire (AUDIT-C) 1. How often do you have a drink containing alcohol?: Never 3. How often do you have six or more drinks on one occasion?: Never Total Score: 0 COLEMAN-7 AMB Questionnaire COLEMAN-7 Date COLEMAN - 7 assessed: 09/12/24 (existing condition, pt is taking medication ) Feeling nervous, anxious, or on edge: 3 = Nearly every day Not being able to stop or control worryin = Nearly every day Worrying too much about different things: 3 = Nearly every day Trouble relaxin = Nearly every day Being so restless that it is hard to sit still: 3 = Nearly every day Becoming easily annoyed or irritable: 3 = Nearly every day Feeling afraid as if something awful might happen: 3 = Nearly every day Total COLEMAN-7 score (0-4 normal; 5-9 mild; 10-14 moderate; 15-21 severe): 21 Source: Developed by Drs. Luis Ferrari, Yasmeen Bryan, Laurent Brumfield and colleagues, with an educational emilee from [employer]. Review of Systems Const Denies headache(s) Eyes Reports change in vision (left eye increased pressure) and Denies loss of vision ENT Denies vertigo, Denies dizziness, Denies headache(s) and Denies sore throat Card Denies chest pain, Denies leg edema and Denies lightheadedness Resp Denies cough, Denies hemoptysis and Denies wheezing GI Denies abdominal pain, Denies melena, Denies constipation, Denies diarrhea and Denies vomiting Denies urinary frequency, Denies dysuria and Denies urinary urgency Musc Reports arthralgias (right shoulder), Denies joint swelling, Denies numbness and Denies tingling Neuro Denies Abnormal speech present, Denies behavioral changes, Denies vertigo, Den ies dizziness, Denies headache(s), Denies loss of vision, Denies memory loss, Denies numbness and Denies tingling Psych Reports anxiety, Denies behavioral changes, Reports depression, Denies memory loss and Denies panic attacks Usman/Lymph Denies easy bleeding and Denies easy bruising Aller/Immun Denies wheezing Physical exam (Primary Care) Vital Signs: Last Vital Signs Temp 97.0 F 09/12/24 09:51 Pulse 84 09/12/24 09:51 BP 162/104 H 09/12/24 09:51 Pulse Ox 99 09/12/24 09:51 Oxygen Delivery Method Room Air 09/12/24 09:51 BMI result Body Mass Index 45.4 Tobacco/Smoking Status: Tobacco use Status Tobacco use date assessed 09/12/24 09/12/24 09:57 Patient Tobacco Use Status Current everyday Tobacco 09/12/24 09:57 Tobacco use type Cigarette 09/12/24 09:57 e-Cigarette/Vaping Use Never Used 09/12/24 09:57 PHQ-9: PHQ-9 Score PHQ-9: Total score 21 09/12/24 10:20 Depression Screening Interpretation: Positive Thrive Assessment: Date of Thrive Assessment Date Thrive assessed 09/12/24 09/12/24 09:57 Currently or been in a relationship where the following occur: I choose not to answer Const General: healthy appearing, no acute distress, alert and awake Nutritional Appearance: well nourished Orientation/consciousness: oriented to person, oriented to place and oriented to time HENMT Ears: TM's normal bilaterally General nose exam: Normal nasal mucous membranes and turbinates present Eyes Conjunctivae: conjunctivae normal Sclerae: sclerae normal Pupils: Equal, round and reactive pupils present Neck Neck: Yes no lymphadenopathy and Yes no JVD Thyroid: Thyroid normal Carotids: no bruits Resp Effort & Inspection: normal respiratory effort and not tachypneic Auscultation: no crackles, no rales, no rhonchi and no wheezes Cardio Rate: regular rate Rhythm: regular rhythm Heart sounds: no murmurs and normal S1 and S2 GI Palpation (GI): Soft to palpation, nontender, no hepatomegaly and no splenomegaly Auscultation: normal bowel sounds Skin General skin exam: no rashes or lesions noted and dry skin Neuro General: oriented to person, oriented to place and oriented to time Cranial nerves: Yes Equal, round and reactive pupils present Speech: No Abnormal speech present Gait exam (Neuro): Normal gait present Motor exam (neuro): no tremor noted Extrem Right upper extremity: full ROM Left upper extremity: full ROM and shoulder/upper arm Details: inspection abnormal and normal ROM; no tenderness and no swelling Right lower extremity: full ROM; no edema Left lower extremity: full ROM; no edema Psych Mental Status: mental status grossly normal Speech and movement: Normal speech and movement present Affect: normal affect Attitude: cooperative Thought process: Normal thought process present Coding Level of Care Code Est Pt Level 4 (51045) Diagnoses Depression, unspecified depression type F32.A Depression Type: unspecified Anxiety F41.9 Obesity, morbid, BMI 40.0-49.9 E66.01 Kidney stone N20.0 Chronic left shoulder pain M25.512; G89.29 Chronicity: chronic Laterality: left History of smoking Z87.891 Elevated blood pressure reading R03.0 Dry skin L85.3 Time Spent (min) 39 Assessment & Plan Assessment & Plan (1) Depression: Code(s): F32.9 - Major depressive disorder, single episode, unspecified Category: Medical Qualifiers: Depression Type: unspecified Qualified Code(s): F32.A - Depression, unspecified Plan: Encouraged CBT continue nortriptyline 10 mg daily Denies SI/HI Follow up with Psychiatry as scheduled (2) Anxiety: Code(s): F41.9 - Anxiety disorder, unspecified Category: Medical Plan: Reports increased anxiety lately due to running out of lorazepam Encouraged CBT Continue nortriptyline 10 mg daily and lorazepam 0.5 mg b.i.d. p.r.n. Follow up with Psychiatry as scheduled (3) Obesity, morbid, BMI 40.0-49.9: Code(s): E66.01 - Morbid (severe) obesity due to excess calories Category: Medical Plan: Encouraged to exercise for at least 30 minutes a day/5 days a week Healthy eating discussed. Encouraged to eat fruits/vegetables, protein- fish/baked chicken, and to avoid salty/fried foods, sweets, caffeine and carbohydrates. Encouraged to increase water intake 6-8 glasses a day (4) Kidney stone: Code(s): N20.0 - Calculus of kidney Category: Medical Plan: Recent ultrasound on 07/10/2024 negative for kidney stones Encouraged adequate fluid hydration (5) Shoulder pain: Code(s): M25.519 - Pain in unspecified shoulder Category: Medical Qualifiers: Chronicity: chronic Laterality: left Qualified Code(s): M25.512 - Pain in left shoulder; G89.29 - Other chronic pain Plan: Ongoing left shoulder pain. Reports that she has done PT but then the pain will come back after she finishes. Discussed with the patient that she needs continue the exercises that she learned in PT or else the muscles that she strengthen around the joint are going to go back to what they were before. Hence, the return of the pain after she stopped doing the exercises. Encouraged modified activity, targeting a shift of her weight off her shoulders when lying in bed. Cyclobenzaprine 10 mg at bedtime prn ordered. (6) History of smoking: Code(s): Z87.891 - Personal history of nicotine dependence Category: Social Hx Plan: Reports that she would like to try and quit, but due to increased stress, it has been difficult for her. Will try the patient on varenicline dose pack. (7) Elevated blood pressure reading: Code(s): R03.0 - Elevated blood-pressure reading, without diagnosis of hypertension Category: Medical Plan: Blood pressure elevated in office. The patient reports that her blood pressure is usually good in his because she is under lot of stress. She was also nerve was about coming in to the appointment today. Encouraged decreased salt and c affeine intake. Will have the patient return in 1 week to get her blood pressure checked by nurse. 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 Encourage d frequent moisturizer to rejuvenate her skin. Orders: Orders Lipid Panel 09/12/24 E6. - Morbid (severe) obesity due to excess calories, F32.A - Depression, unspecified, Z00.00 - Encounter for general adult medical examination without abnormal findings Vitamin D 25-OH Total 09/12/24 E6. - Morbid (severe) obesity due to excess calories, F32.A - Depression, unspecified, Z00.00 - Encounter for general adult medical examination without abnormal findings Vitamin B12 and Folate 09/12/24 E6. - Morbid (severe) obesity due to excess calories, F32.A - Depression, unspecified, Z00.00 - Encounter for general adult medical examination without abnormal findings Complete Blood Count Auto Diff 09/12/24 E6. - Morbid (severe) obesity due to excess calories, F32.A - Depression, unspecified, Z00.00 - Encounter for general adult medical examination without abnormal findings Comprehensive [place]. Panel Fast 09/12/24 E66. - Morbid (severe) obesity due to excess calories, F32.A - Depression, unspecified, Z00.00 - Encounter for general adult medical examination without abnormal findings TSH reflex Free T4 09/12/24 E6. - Morbid (severe) obesity due to excess calories, F32.A - Depression, unspecified, Z00.00 - Encounter for general adult medical examination without abnormal findings UA CC w/rflx Micro + Cult 09/12/24 E6. - Morbid (severe) obesity due to excess calories, F32.A - Depression, unspecified, Z00.00 - Encounter for general adult medical examination without abnormal findings Medications: New cyclobenzaprine 10 mg PO BEDTIME PRN 30 tabs 1RF muscle spasm varenicline tartrate (Chantix Starting Month Box) PO PER PKG DIR 53 ea 0RF nicotine dependance
== END 2024-09-12 10:46 | disposition home or self-care (01) ==
LOC: HO.HMCH 09:51
DX: N20.0 Calculus of kidney (principal); F32.A Depression, unspecified; E66.01 Morbid (severe) obesity due to excess calories; Z68.42 Body mass index [BMI] 45.0-49.9, adult; F41.9 Anxiety disorder, unspecified; M25.512 Pain in left shoulder; G89.29 Other chronic pain; Z87.891 Personal history of nicotine dependence; R03.0 Elevated blood-pressure reading, without diagnosis of hypertension; L85.3 Xerosis cutis

== ENCOUNTER → 2024-09-12 09:50 | Outpatient (BNVA) | payer OTHER, SELFPAY | DX: E66.01 Morbid (severe) obesity due to excess calories (principal); F32.A Depression, unspecified; F41.9 Anxiety disorder, unspecified; M25.512 Pain in left shoulder; G89.29 Other chronic pain; R03.0 Elevated blood-pressure reading, without diagnosis of hypertension; L85.3 Xerosis cutis; Z87.442 Personal history of urinary calculi; Z68.42 Body mass index [BMI] 45.0-49.9, adult; Z87.891 Personal history of nicotine dependence | CPT/HCPCS: 99212 ==

== ENCOUNTER → 2024-09-22 09:37 | Outpatient (BNVA) | payer OTHER, SELFPAY | DX: I10 Essential (primary) hypertension (principal) | CPT/HCPCS: 99211 ==

== ENCOUNTER 2024-10-13 09:29 | Outpatient (REF) | payer OTHER, SELFPAY ==
[2024-10-13 10:05] LABS: MANUAL DIFF FLAG NO
[2024-10-13 11:01] LABS: Appearance Urine Clear; Glucose Urine UA Negative (Negative); PH 5.5 (5.0-9.0); Specific Gravity - Urine 1.015 (1.005-1.025); UMIC TRIGGER UACC YES
[2024-10-13 11:08] LABS: Hematocrit 38.0 % (37.0-47.0); Hemoglobin 12.3 g/dl (12.0-16.0); Imm Gran Abs Auto 0.05 X10*3/uL (0.00-0.03); Imm Gran Pct Auto 0.7 % (0.0-0.4); Lymphocytes Absolute Auto 2.9 X10*3/uL (1.2-4.9); Mean Corpuscular HGB Conc 32.4 g/dl (31.0-35.0); Mean Corpuscular Hemoglobin 23.2 pg (27.0-33.0); Mean Corpuscular Volume 71.7 fL (80.0-98.0); NRBC Abs Auto 0.000 X10*3/uL (0.0-0.012); NRBC Pct Auto 0.0 /100WBC (0.0-0.2); Platelet Count 229 X10*3/uL (160-400); Red Blood Count 5.30 X10*6/uL (4.20-5.50); White Blood Count 7.2 X10*3/uL (4.8-10.8)
[2024-10-13 11:46] LABS: Folate 6.2 ng/mL (> or = 4.0); Vitamin B12 803 pg/mL (200-900)
[2024-10-13 11:51] LABS: Alanine Aminotransferase 20 U/L (0-31); Albumin Level 4.4 g/dL (3.5-5.0); Alkaline Phosphatase 115 U/L (39-117); Anion Gap 10 (12-20); Aspartate Amino Transferase 22 U/L (5-31); Blood Urea Nitrogen 12 mg/dL (9-16); Calcium 8.8 mg/dL (8.4-10.2); Carbon Dioxide 25 mmol/L (22-29); Chloride 108 mmol/L (96-108); Cholesterol 160 mg/dL (<200); Estimated Glomerular Filt Rate > 60; HDL Cholesterol 41 mg/dL (>40); Potassium 4.1 mmol/L (3.3-5.1); Sodium 139 mmol/L (135-145); Total Protein 7.8 g/dL (6.5-8.0); Triglycerides 69 mg/dL (<150)
== END 2024-10-13 09:30 | disposition home or self-care (01) ==
LOC: HO.LAB 09:29
DX: R03.0 Elevated blood-pressure reading, without diagnosis of hypertension (principal); E66.01 Morbid (severe) obesity due to excess calories; Z00.00 Encounter for general adult medical examination without abnormal findings; F32.A Depression, unspecified; F17.210 Nicotine dependence, cigarettes, uncomplicated
CPT/HCPCS: 36415; 80053; 80061; 81001; 81003; 82306; 82607; 82746; 84443; 85025

== ENCOUNTER → 2024-11-01 09:00 | Outpatient (BNV) | payer OTHER, SELFPAY | PROVIDERS: Visit Provider Internal Medicine | DX: R92.8 Other abnormal and inconclusive findings on diagnostic imaging of breast (principal) | CPT/HCPCS: 77061; 77065 ==

== ENCOUNTER 2024-11-01 09:01 | Outpatient (REF) | payer OTHER, SELFPAY ==
--- NOTE | ~2024-11-01 | MM_ITS ---
EXAMINATION: MM DIAGNOSTIC DIGITAL BREAST TOMOSYNTHESIS, LEFT CLINICAL INFORMATION: 6 month follow-up for focal asymmetry in the lower central left breast without prior sonographic correlate. The patient previously had right bloody nipple discharge in a breast MRI was recommended for further evaluation. Breast MRI would need to be ordered by the patient's providing clinician. COMPARISON: Mammography: Priors on PACS. TECHNIQUE: Digital breast tomosynthesis is performed in both the craniocaudal and mediolateral oblique views along with computer-aided detection (CAD). Synthesized 2D images are generated from the tomosynthesis. FINDINGS: There are scattered areas of fibroglandular density (ACR BI-RADS breast composition Category b). Focal asymmetry lower central breast middle depth is less conspicuous compared with priors. No prior sonographic correlate was seen. No suspicious calcifications or other abnormal findings. MM/MM tomosynthesis diagnostic LT IMPRESSION: Focal asymmetry lower central left breast middle depth without prior sonographic correlate is less conspicuous compared with prior's. Recommend follow-up in 6 months to demonstrate 1 year stability when the patient is due for bilateral mammography. Patient previously had bloody nipple right discharge without mammographic or sonographic abnormal finding. Breast MRI is recommended for further evaluation. Breast MRI needs to be ordered by the patient's providing clinician. ASSESSMENT: BI-RADS BI-RADS 3 - Probably benign finding(s) - 6 month follow-up suggested RECOMMENDATION: 6 Month F/U Recommend breast MRI to evaluate for right previous bloody nipple discharge. Results were provided to the patient at time of visit by the technologist. This patient's information was entered into a reminder system with a target due date for their next mammogram. Electronically signed by: Thelma Blankenship DO 11/01/2024 09:52 AM EDT
== END 2024-11-01 09:02 | disposition home or self-care (01) ==
LOC: HO.MAMMO 09:01
PROVIDERS: Visit Provider Internal Medicine
DX: R92.2 Inconclusive mammogram (principal)
CPT/HCPCS: 77061; 77065

== ENCOUNTER 2024-12-13 10:40 | Outpatient (AMB) | payer OTHER, SELFPAY ==
[2024-12-13 11:00] VITALS: BP 128/82; PULSE 98; RESP 18; TEMP 36.2; O2SAT 96; BMI 48.3
--- NOTE | 2024-12-13 11:00 | MHC.PC.OV ---
Vital Signs 12/13/24 11:00 Height 5 ft 5 in Weight 290 lb 4 oz BMI 48.3 BP 128/82 Blood Pressure Location Lt brachial Position Sitting Respiration 18 Pulse 98 Pulse Source Pulse Oximeter Temp 97.1 F Temp Source Temporal Artery Scan Pulse Oximetry (%) 96 Oxygen Delivery Method Room Air Intake Visit Reasons: anemia/anxiety Exercise Physiologist Certified Required: No Accompanied by: Self / Same As Patient Allergies No Known Allergies Allergy (Verified 12/13/24 11:13) Medication List - Last Reconciled 12/13/24 by KENDELL Singer amlodipine 5 mg PO DAILY clonazepam (Klonopin) 0.5 mg PO TID PRN cyclobenzaprine 10 mg PO BEDTIME PRN levonorgestrel (Mirena) intrauterine nortriptyline 10 mg PO QAM quetiapine 400 mg PO BEDTIME varenicline tartrate (Chantix Starting Month Box) PO PER PKG DIR Tobacco use date assessed: 12/13/24 Dental Screening Dental Screen Date: 12/13/24 Did you have a dental visit in the last 12 months?: No Did you have a dental problem in the last 6 months where you did not have access to dental care?: No Was dental information given to patient?: No HPI anemia/anxiety HPI Details The patient is a 44-year-old female significant past medical history of morbid obesity, depression and anxiety, microscopic hematuria, kidney stone, elevated blood pressure. She is presenting with a sebaceous cyst and obesity. The sebaceous cyst is located under the right breast, described as semi-firm, movable, and without pain, but not discharging any fluid. The patient has a history of a similar cyst on the opposite side, which required surgical removal. The current cyst is not red or infected, and general surgery is being considered for removal. The patient expresses dissatisfaction with her current weight and is seeking alternatives to her previous weight loss clinic due to a lack of rapport with the physician there. She is considering trying a different clinic, specifically [facility], which is associated with [facility]. The patient has a history of vitamin D deficiency, which remains low despite some improvement. She admits to not taking her vitamin D supplements regularly due to the burden of multiple medications. The patient is currently using Chantix to reduce nicotine dependence and reports a decrease in smoking frequency. She is also taking clonazepam for anxiety, which has replaced lorazepam, and is taken as needed. The patient has slightly elevated cholesterol and was encouraged decrease foods that are low in cholesterol. The patient has a history of kidney stones, which may explain the presence of blood in her urine. History of anemia with normal H&H on current blood work, continues to have low MCV an MCH. The patient had a mammogram on 11/01/2024, the previously had right bloody nipple discharge and a breast MRI was recommended further evaluation. Mammogram showed focal asymmetry lower central left breast middle depth without prior sonographic correlate is less conspicuous compared with priors. Patient was recommended to follow up in six-month. [facility] Medical History (Updated 12/13/24 @ 18:12 by KENDELL Singer) Morbid obesity Anemia IUD (intrauterine device) in place Heartburn Arthritis Back pain History of blood transfusion Depression Snores Smoker Hx of menorrhagia Sinusitis Anxiety Surgical History History of excision of mass (07/01/22) Hx of section Hx of tubal ligation Family History Mother HTN (hypertension) Diabetes Mental health disorder Substance use disorder Social History Household Members: Children Housing: Apartment Are you a primary ocular care technician to a significant other at home: Yes (children 15 + 17 yrs old) Do you presently have visiting nurse or other home services: No Alcohol intake: former Patient Tobacco Use Status: Current everyday Tobacco user Tobacco use type: Cigarette Cigarettes Per Day: 10 Years Smoked: 7 e-Cigarette/Vaping Use: Never Used Second Hand Smoke Exposure: No service: No Current occupational status: employed Current occupation: [employer] Gender identity: Female Cognitive needs: No Hearing needs: No Vision needs: No Female Reproductive History Menstrual Age of Menarche: 15 Questionnaire Thrive Questionnaire Date Thrive assessed: 09/12/24 I am a: Patient What is your living situation today?: I have a place to live, but I am worried about losing it in the future Within the past 12 months, did the food you bought not last and you didn't have the money to get more?: Often true Within the past 12 months, did you worry whether your food would run out before you got money to buy more?: Often true Do you have trouble paying for medicines?: No Do you have trouble getting transportation to medical appointments?: No Do you have trouble paying your heating and electricity bill?: Yes Do you have trouble taking care of your child, family member or friend?: I choose not to answer this question Do you have trouble with day-to-day activities such as bathing, preparing meals, shopping, managing finances, etc.?: I choose not to answer this question Are you currently unemployed and looking for a job?: I choose not to answer this question Are you interested in more education?: I choose not to answer this question Please select the resources that you would like help with: Utilities Currently or been in a relationship where the following occur: I choose not to answer THRIVE Score: 4 AUDIT C Alcohol Use Questionnaire (AUDIT-C) 3. How often do you have six or more drinks on one occasion?: Never Total Score: 0 COLEMAN-7 AMB Questionnaire COLEMAN-7 Date COLEMAN - 7 assessed: 09/12/24 (existing condition, pt is taking medication ) Source: Developed by Drs. Luis Ferrari, Yasmeen Bryan, Laurent Brumfield and colleagues, with an educational emilee from [employer]. Review of Systems Const Denies headache(s) Eyes Denies loss of vision ENT Denies vertigo, Denies dizziness, Denies headache(s) and Denies sore throat Card Denies chest pain, Denies leg edema and Denies lightheadedness Resp Denies cough, Denies hemoptysis and Denies wheezing GI Denies abdominal pain, Denies melena, Denies constipation, Denies diarrhea and Denies vomiting Denies urinary frequency, Denies dysuria and Denies urinary urgency Musc Reports arthralgias (Left shoulder), Denies joint swelling, Denies numbness and Denies tingling Neuro Denies Abnormal speech present, Denies behavioral changes, Denies vertigo, Denies dizziness, Denies headache(s), Denies loss of vision, Denies memory loss, Denies numbness and Denies tingling Psych Denies anxiety, Denies behavioral changes, Denies depression, Denies memory loss and Denies panic attacks Usman/Lymph Denies easy bleeding and Denies easy bruising Aller/Immun Denies wheezing Physical exam (Primary Care) Vital Signs: Last Vital Signs Temp 97.1 F 12/13/24 11:00 Pulse 98 12/13/24 11:00 Resp 18 12/13/24 11:00 BP 128/82 12/13/24 11:00 Pulse Ox 96 12/13/24 11:00 Oxygen Delivery Method Room Air 12/13/24 11:00 BMI result Body Mass Index 48.3 Tobacco/Smoking Status: Tobacco use Status Tobacco use date assessed 12/13/24 12/13/24 11:07 Patient Tobacco Use Status Current everyday Tobacco 12/13/24 11:00 Tobacco use type Cigarette 12/13/24 11:00 e-Cigarette/Vaping Use Never Used 12/13/24 11:07 Thrive Assessment: Date of Thrive Assessment Date Thrive assessed 09/12/24 12/13/24 11:00 Currently or been in a relationship where the following occur: I choose not to answer Const General: healthy appearing, no acute distress, alert and awake Nutritional Appearance: well nourished Orientation/consciousness: oriented to person, oriented to place and oriented to time HENMT Ears: TM's normal bilaterally General nose exam: Normal nasal mucous membranes and turbinates present Eyes Conjunctivae: conjunctivae normal Sclerae: sclerae normal Pupils: Equal, round and reactive pupils present Neck Neck: Yes no lymphadenopathy and Yes no JVD Thyroid: Thyroid normal Carotids: no bruits Resp Effort & Inspection: normal respiratory effort and not tachypneic Auscultation: no crackles, no rales, no rhonchi and no wheezes Cardio Rate: regular rate Rhythm: regular rhythm Heart sounds: no murmurs and normal S1 and S2 GI Palpation (GI): Soft to palpation, nontender, no hepatomegaly and no splenomegaly Auscultation: normal bowel sounds General: Yes no CVA tenderness Back/Spine/Pelvis Back: no CVA tenderness Skin General skin exam: no rashes or lesions noted and dry skin Neuro General: oriented to person, oriented to place and oriented to time Cranial nerves: Yes Equal, round and reactive pupils present Speech: No Abnormal speech present Gait exam (Neuro): Normal gait present Motor exam (neuro): no tremor noted Extrem Right upper extremity: full ROM Left upper extremity: full ROM and shoulder/upper arm Details: no tenderness and no swelling Right lower extremity: full ROM; no edema Left lower extremity: full ROM; no edema Psych Mental Status: mental status grossly normal Speech and movement: Normal speech and movement present Affect: normal affect Attitude: cooperative Thought process: Normal thought process present Results Reviewed Results Reviewed: Laboratory Tests 10/13/24 10/13/24 10:00 10:04 WBC 7.2 RBC 5.30 Hgb 12.3 Hct 38.0 MCV 71.7 L MCH 23.2 L MCHC 32.4 RDW 18.3 H Plt Count 229 D MPV Not Reportable Immature Gran % (Auto) 0.7 H Neut % (Auto) 50.2 Lymph % (Auto) 40.8 H Sodium 139 Potassium 4.1 Chloride 108 Carbon Dioxide 25 Anion Gap 10 L BUN 12 Creatinine 0.76 Estim Creat Clear Calc Not Reportable Estimated GFR > 60 Fasting Glucose 106 H Calcium 8.8 D Total Bilirubin 0.6 AST 22 ALT 20 Alkaline Phosphatase 115 Total Protein 7.8 Albumin 4.4 Triglycerides 69 Cholesterol 160 LDL Cholesterol, Calc 106 H HDL Cholesterol 41 Vitamin B12 803 25-OH Vitamin D Total 25.4 L Folate 6.2 TSH 0.67 Urine Color Yellow Urine Appearance Clear Urine pH 5.5 Ur Specific [place] 1.015 Urine Protein Negative Urine Glucose (UA) Negative Urine Ketones Negative Urine Blood Moderate (2+) H Urine Nitrite Negative Ur Leukocyte Esterase Negative Urine RBC 3-5 H Urine WBC 0-5 Ur Squamous Epith Cells 6-10 Urine Bacteria 1+ Hyaline Casts 0-2 Coding Level of Care Code Est Pt Level 4 (36709) Diagnoses Depression, unspecified depression type F32.A Depression Type: unspecified Anxiety F41.9 Obesity, morbid, BMI 40.0-49.9 E66.01 Kidney stone N20.0 Chronic left shoulder pain M25.512; G89.29 Chronicity: chronic Laterality: left History of smoking Z87.891 Elevated blood pressure reading R03.0 Dry skin L85.3 Cigarette nicotine dependence without complication F17.210 Nicotine product type: cigarettes Substance use status: uncomplicated Bloody discharge from right nipple N64.52 Iron deficiency anemia, unspecified iron deficiency anemia type D50.9 Anemia type: iron deficiency Iron deficiency anemia type: unspecified iron deficiency Hyperlipidemia, unspecified hyperlipidemia type E78.5 Hyperlipidemia type: unspecified Vitamin D deficiency E55.9 Time Spent (min) 41 Assessment & Plan Assessment & Plan (1) Depression: Code(s): F32.9 - Major depressive disorder, single episode, unspecified Category: Medical Qualifiers: Depression Type: unspecified Qualified Code(s): F32.A - Depression, unspecified Plan: Encouraged CBT continue nortriptyline 10 mg daily Denies SI/HI Follow up with Psychiatry as scheduled (2) Anxiety: Code(s): F41.9 - Anxiety disorder, unspecified Category: Medical Plan: Reports increased anxiety lately due to running out of lorazepam Encouraged CBT Continue nortriptyline 10 mg daily and clonazepam 0.5 mg t.i.d. p.r.n. Follow up with Psychiatry as scheduled (3) Obesity, morbid, BMI 40.0-49.9: Code(s): E66.01 - Morbid (severe) obesity due to excess calories Category: Medical Plan: Encouraged to exercise for at least 30 minutes a day/5 days a week Healthy eating discussed. Encouraged to eat fruits/vegetables, protein-fish/baked chicken, and to avoid salty/fried foods, sweets, caffeine and carbohydrates. Encouraged to increase water intake 6-8 glasses a day (4) Kidney stone: Code(s): N20.0 - Calculus of kidney Category: Medical Plan: Recent ultrasound on 07/10/2024 negative for kidney stones Encouraged adequate fluid hydration (5) Shoulder pain: Code(s): M25.519 - Pain in unspecified shoulder Category: Medical Qualifiers: Chronicity: chronic Laterality: left Qualified Code(s): M25.512 - Pain in left shoulder; G89.29 - Other chronic pain Plan: Ongoing left shoulder pain. Reports that she has done PT but then the pain will come back after she finishes. Discussed with the patient that she needs continue the exercises that she learned in PT or else the muscles that she strengthen around the joint are going to go back to what they were before. Hence, the return of the pain after she stopped doing the exercises. Encouraged modified activity, targeting a shift of her weight off her shoulders when lying in bed. Cyclobenzaprine 10 mg at bedtime prn ordered. (6) History of smoking: Code(s): Z87.891 - Personal history of nicotine dependence Category: Social Hx Plan: Reports that she would like to try and quit, but due to increased stress, it has been difficult for her. Will try the patient on varenicline dose pack. (7) Elevated blood pressure reading: Code(s): R03.0 - Elevated blood-pressure reading, without diagnosis of hypertension Category: Medical Plan: Blood pressure elevated in office. The patient reports that her blood pressure is usually good in his because she is under lot of stress. She was also nerve was about coming in to the appointment today. Encouraged decreased salt and caffeine intake. Will have the patient return in 1 week to get her blood pressure checked by nurse. 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 Encouraged frequent moisturizer to rejuvenate her skin. (9) Nicotine dependence: Code(s): F17.200 - Nicotine dependence, unspecified, uncomplicated Category: Medical Qualifiers: Nicotine product type: cigarettes Substance use status: uncomplicated Qualified Code(s): F17.210 - Nicotine dependence, cigarettes, uncomplicated Plan: Encouraged smoking cessation (10) Bloody discharge from right nipple: Code(s): N64.52 - Nipple discharge Category: Medical Plan: The patient previously had right bloody nipple discharge and he MRI was recommended for further evaluation. Breasts MRI ordered (11) Anemia: Code(s): D64.9 - Anemia, unspecified Category: Medical Qualifiers: Anemia type: iron deficiency Iron deficiency anemia type: unspecified iron deficiency Qualified Code(s): D50.9 - Iron deficiency anemia, unspecified Plan: History of iron deficiency anemia. H&H normal on current labs, MCV and MCH continues to be low. We will continue to monitor with frequent CBC (12) HLD (hyperlipidemia): Code(s): E78.5 - Hyperlipidemia, unspecified Category: Medical Qualifiers: Hyperlipidemia type: unspecified Qualified Code(s): E78.5 - Hyperlipidemia, unspecified Plan: LDL slightly elevated at 106 Reinforced low-cholesterol diet and activity as tolerated We will repeat lipid panel in 4 months (13) Vitamin D deficiency: Code(s): E55.9 - Vitamin D deficiency, unspecified Category: Medical Plan: Encouraged vitamin-D 3 OTC. Patient reports that she frequently forgets to take this Plan Follow up in 4 months Orders: Orders Comprehensive Carbon. Panel Fast 4 Months E66.01 - Morbid (severe) obesity due to excess calories, F32.A - Depression, unspecified, F41.9 - Anxiety disorder, unspecified, R03.0 - Elevated blood-pressure reading, without diagnosis of hypertension, R31.9 - Hematuria, unspecified IRON PROFILE 4 Months E66.01 - Morbid (severe) obesity due to excess calories, F32.A - Depression, unspecified, F41.9 - Anxiety disorder, unspecified, R03.0 - Elevated blood-pressure reading, without diagnosis of hypertension, R31.9 - Hematuria, unspecified UA CC w/rflx Micro + Cult 4 Months E66.01 - Morbid (severe) obesity due to excess calories, F32.A - Depression, unspecified, F41.9 - Anxiety disorder, unspecified, R03.0 - Elevated blood-pressure reading, without diagnosis of hypertension, R31.9 - Hematuria, unspecified TSH reflex Free T4 4 Months E66.01 - Morbid (severe) obesity due to excess calories, F32.A - Depression, unspecified, F41.9 - Anxiety disorder, unspecified, R03.0 - Elevated blood-pressure reading, without diagnosis of hypertension, R31.9 - Hematuria, unspecified Complete Blood Count Auto Diff 4 Months E66.01 - Morbid (severe) obesity due to excess calories, F32.A - Depression, unspecified, F41.9 - Anxiety disorder, unspecified, R03.0 - Elevated blood-pressure reading, without diagnosis of hypertension, R31.9 - Hematuria, unspecified Lipid Panel 4 Months E66.01 - Morbid (severe) obesity due to excess calories, F32.A - Depression, unspecified, F41.9 - Anxiety disorder, unspecified, R03.0 - Elevated blood-pressure reading, without diagnosis of hypertension, R31.9 - Hematuria, unspecified Referrals General Surgery Referral L72.3 - Sebaceous cyst Medical Weight Management Referral E66.01 - Morbid (severe) obesity due to excess calories
== END 2024-12-13 11:36 | disposition home or self-care (01) ==
DX: F32.A Depression, unspecified (principal); F41.9 Anxiety disorder, unspecified; E66.01 Morbid (severe) obesity due to excess calories; Z68.42 Body mass index [BMI] 45.0-49.9, adult; N20.0 Calculus of kidney; M25.512 Pain in left shoulder; G89.29 Other chronic pain; Z87.891 Personal history of nicotine dependence; R03.0 Elevated blood-pressure reading, without diagnosis of hypertension; L85.3 Xerosis cutis; F17.210 Nicotine dependence, cigarettes, uncomplicated; N64.52 Nipple discharge; D50.9 Iron deficiency anemia, unspecified

== ENCOUNTER → 2024-12-13 10:40 | Outpatient (BNVA) | payer OTHER, SELFPAY | DX: N64.52 Nipple discharge (principal); E55.9 Vitamin D deficiency, unspecified; E78.00 Pure hypercholesterolemia, unspecified; D64.9 Anemia, unspecified; F32.A Depression, unspecified; F41.9 Anxiety disorder, unspecified; E66.01 Morbid (severe) obesity due to excess calories; M25.512 Pain in left shoulder; G89.29 Other chronic pain; R03.0 Elevated blood-pressure reading, without diagnosis of hypertension; L85.3 Xerosis cutis; F17.210 Nicotine dependence, cigarettes, uncomplicated; D50.9 Iron deficiency anemia, unspecified; E78.5 Hyperlipidemia, unspecified; L72.3 Sebaceous cyst; Z87.442 Personal history of urinary calculi | CPT/HCPCS: 99212 ==

== ENCOUNTER 2025-01-08 07:57 | Outpatient (REF) | payer OTHER, SELFPAY ==
[2025-01-09 04:51] LABS: CT PCR NOT DETECTED (Not Detect.); NG PCR NOT DETECTED (Not Detect.)
== END 2025-01-08 07:58 | disposition home or self-care (01) ==
LOC: HO.LNP 07:57
PROVIDERS: Visit Provider Obstetrics & Gynecology
DX: R10.21 Pelvic and perineal pain right side (principal); Z32.02 Encounter for pregnancy test, result negative; Z98.51 Tubal ligation status; Z20.2 Contact with and (suspected) exposure to infections with a predominantly sexual mode of transmission
CPT/HCPCS: 87491; 87591; 99212

== ENCOUNTER 2025-01-08 07:57 | Outpatient (AMB) | payer OTHER, SELFPAY ==
--- NOTE | 2025-01-08 08:25 | A.OFFVIS_ITS ---
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 It's intermittent in nature lasting few seconds and occurs 3x/day. it is not associated with any vaginal discharge, no constipation, no dysuria, frequency incontinence, no n/v, no feverishness PFSH Medical History Morbid obesity Anemia IUD (intrauterine device) in place Heartburn Arthritis Back pain History of blood transfusion Depression Snores Smoker Hx of menorrhagia Sinusitis Anxiety Surgical History History of excision of mass (07/01/22) Hx of section Hx of tubal ligation Family History Mother HTN (hypertension) Diabetes Mental health disorder Substance use disorder Social History Household Members: Children Housing: Apartment Are you a primary resident care manager to a significant other at home: Yes (children 15 + 17 yrs old) Do you presently have visiting nurse or other home services: No Alcohol intake: former Patient Tobacco Use Status: Current everyday Tobacco user Tobacco use type: Cigarette Cigarettes Per Day: 10 Years Smoked: 7 e-Cigarette/Vaping Use: Never Used Second Hand Smoke Exposure: No service: No Current occupational status: employed Current occupation: [employer] Gender identity: Female Cognitive needs: No Hearing needs: No Vision needs: No Female Reproductive History Menstrual Age of Menarche: 15 Review of Systems Const All systems reviewed & are unremarkable except as noted in HPI and below Physical Exam General: Yes no CVA tenderness External Female Exam: normal external appearance and normal appearance of the urethra Speculum Exam - Vagina: normal appearance of the vagina, normal palpation, no lesions and no masses Speculum Exam - Cervix: normal appearance of the cervix, normal palpation, no lesions, no masses, nontender and Other cervical findings present (IUD string not seen) Bimanual exam- vagina & uterus: normal bimanual exam, normal palpation, uterine size normal, normal palpation, uterine shape normal, No Cervical tenderness present and non-tender Bimanual Exam- Adnexa, other: normal adnexae Back/Spine/Pelvis Back: no CVA tenderness Assessment & Plan Assessment & Plan (1) Pain in pelvis: Comment: Lost IUD string Code(s): R10.2 - Pelvic and perineal pain Category: Medical Plan: Urine dip and test done in the office were both negative. GC and chla mydia taken and pelvic ultrasound ordered. Discussed with the patient the differential diagnosis of pelvic pain including but not limited to IUD malpositioned, adnexal, uterine masses, pelvic infections (PID), GI the (Irritable bowel syndrome, diverticulitis, others), musculoskeletal, myofascial pain abdominal wall , adhesions, endometriosis, psychological and others causes. Will check results and treat accordingly. All questions answered, the patient verbalized understanding. Instructed the patient to schedule an ultrasound and a follow-up appointment in 2 weeks. All questions answered, the patient verbalized understanding and agreed with the plan. Orders: Orders US pelvic and transvaginal Today R10.2 - Pelvic and perineal pain Coding Level of Care Code Est Pt Level 3 (24032) Diagnoses Pain in pelvis R10.2
== END 2025-01-08 08:43 | disposition home or self-care (01) ==
LOC: HO.HWS 07:57
PROVIDERS: Visit Provider Obstetrics & Gynecology
DX: R10.20 Pelvic and perineal pain unspecified side (principal)
CPT/HCPCS: 99213

== ENCOUNTER → 2025-01-16 08:59 | Outpatient (BNV) | payer OTHER, SELFPAY | PROVIDERS: Visit Provider Internal Medicine | DX: N64.52 Nipple discharge (principal) | CPT/HCPCS: 77049 ==

== ENCOUNTER 2025-01-16 09:03 | Outpatient (REF) | payer OTHER, SELFPAY ==
--- NOTE | ~2025-01-16 | MR_ITS ---
EXAMINATION: MR BREAST WITHOUT AND WITH CONTRAST, BILATERAL CLINICAL INFORMATION: History of right bloody nipple discharge since April 2024 negative mammogram and ultrasound on the right breast. COMPARISON: Comparison is made with relevant prior imaging. TECHNIQUE: MR imaging of the breast was performed using T1, T2 and fat saturated techniques. Dynamic multiphase imaging was also performed after the administration of intravenous gadolinium contrast agent. Computer generated 3D reconstruction and enhancement kinetic analysis was ulitized by the radiologist in the interpretation of this examination. FINDINGS: Images are extremely limited due to patient's large breast size and body habitus. Breast composition: Heterogeneous fibroglandular breast tissue Background parenchymal enhancement: Mild LEFT BREAST: No suspicious enhancing masses or areas of non mass enhancement. No axillary or internal mammary adenopathy. RIGHT BREAST: No suspicious enhancing masses or areas of non mass enhancement. No axillary or internal mammary adenopathy. Limited views of the chest and abdomen are unremarkable. MR/MR breast BI wo/w con IMPRESSION: Left: No MRI evidence of malignancy. Right: No MRI finding to account for the patient's right bloody nipple discharge within these limited images. Recommend clinical evaluation and follow-up. No MRI evidence of malignancy. ASSESSMENT: LEFT BREAST: BI-RADS 1-Negative RIGHT BREAST: BI-RADS 1-Negative RECOMMENDATIONS: Recommend 6 month follow-up left breast mammogram for further evaluation of asymmetry seen on prior diagnostic imaging. Recommend yearly mammographic imaging. Recommend breast surgical consultation for further evaluation and management of right bloody nipple discharge. Electronically signed by: Thelma Blankenship DO 01/16/2025 07:49 PM [facility]
== END 2025-01-16 09:04 | disposition home or self-care (01) ==
LOC: HO.MRI 09:03
DX: N64.52 Nipple discharge (principal)
CPT/HCPCS: 77049; A9585

== ENCOUNTER 2025-01-17 14:56 | Outpatient (AMB) | payer OTHER, SELFPAY ==
--- NOTE | 2025-01-17 15:06 | A.OFFVIS_ITS ---
Vital Signs 01/17/25 15:11 Height 5 ft 5 in Weight 296 lb 4 oz BMI 49.3 Intake Visit Reasons: sebaceaous cyst Intake Note: This patient presents for an assessment for sebaceous cyst underneath right breast. Pt c/o; x2 skin lesions, underneath right breast and the other lesion is in between her Cleavage. 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 She says she has a cyst under the right breast on the right side as well as the sternal area. She said this for several months. She says that seems seemed to be getting bigger and more uncomfortable and she wants these excised She is morbidly obese. She also has very large pendulous breasts. She is a known smoker. [facility] Medical History (Updated 01/17/25 @ 15:45 by Eleno Solorzano MD) Epidermal cyst Morbid obesity Anemia IUD (intrauterine device) in place Heartburn Arthritis Back pain History of blood transfusion Depression Snores Smoker Hx of menorrhagia Sinusitis Anxiety Surgical History History of excision of mass (07/01/22) Hx of section Hx of tubal ligation Family History Mother HTN (hypertension) Diabetes Mental health disorder Substance use disorder Social History Household Members: Children Housing: Apartment Are you a primary physician assistant primary care to a significant other at home: Yes (children 15 + 17 yrs old) Do you presently have visiting nurse or other home services: No Alcohol intake: former Patient Tobacco Use Status: Current everyday Tobacco user Tobacco use type: Cigarette Cigarettes Per Day: 10 Years Smoked: 7 e-Cigarette/Vaping Use: Never Used Second Hand Smoke Exposure: No service: No Current occupational status: employed Current occupation: [employer] Gender identity: Female Cognitive needs: No Hearing needs: No Vision needs: No Female Reproductive History Menstrual Age of Menarche: 15 Review of Systems Const Denies chills and Denies fever(s) Card Denies chest pain, Denies dyspnea and Denies dyspnea on exertion Resp Denies cough, Denies dyspnea and Denies dyspnea on exertion GI Denies hematochezia and Denies change in bowel habits Denies hematuria Musc Denies back pain and Denies limited range of motion Neuro Denies focal weakness and Denies convulsions Psych Denies depression and Denies mood swings Physical Exam Vital Signs: BMI result Body Mass Index 49.3 Const Other: Morbidly obese General: comfortable and no acute distress Nutritional Appearance: obese Orientation/consciousness: patient oriented x3 Neck Neck: Yes no lymphadenopathy Chest Other: Has very large, pendulous breasts, with note of a cystic induration under the right breast about 2 cm. There is note of a cystic induration of the sternum about 2 cm Resp Auscultation: clear to auscultation bilaterally Cardio Rhythm: regular rhythm GI Palpation (GI): Soft to palpation, nontender and no guarding Neuro General: patient oriented x3 Assessment & Plan Assessment & Plan (1) Epidermal cyst: Code(s): L72.0 - Epidermal cyst Category: Medical Plan She has this cyst on the bright side under the breast, as described above. She also another cystic induration on the sternum. She wants both of these removed. She understands the technique of excision of both these cysts.. I reviewed with her the risks including but not limited to bleeding and infections, as well as the benefits and alternatives. This will be done under local anesthesia on her next visit in the office. Coding Level of Care Code New Pt Level 3 (57454) Diagnoses Epidermal cyst L72.0
[2025-01-17 15:11] VITALS: BMI 49.3
== END 2025-01-17 15:29 | disposition home or self-care (01) ==
LOC: HO.HGS 14:57
PROVIDERS: Visit Provider Surgery
DX: L72.0 Epidermal cyst (principal)
CPT/HCPCS: 99203

== ENCOUNTER → 2025-01-17 14:56 | Outpatient (BNVA) | payer OTHER, SELFPAY | PROVIDERS: Visit Provider Surgery | DX: L72.0 Epidermal cyst (principal) | CPT/HCPCS: 99202 ==

== ENCOUNTER 2025-01-30 14:31 | Outpatient (REF) | payer OTHER, SELFPAY ==
--- NOTE | ~2025-01-30 | US_ITS ---
CLINICAL HISTORY: R10.2 - Pelvic and perineal pain Transabdominal and transvaginal pelvic ultrasound Comparison: 11/02/2022 Findings: Uterus 11.3 x 4.8 x 4.3 cm. Endometrium 1 cm. IUD in normal position. No free fluid. Right ovary 2.1 x 1.5 x 2.8 cm. Left ovary 2.6 x 1.6 x 2.1 cm. No significant focal abnormality. Impression: No significant abnormality This document has been electronically signed by: Tien Espinoza MD on 01/30/2025 19:29:04
== END 2025-01-30 14:32 | disposition home or self-care (01) ==
LOC: HO.US 14:31
PROVIDERS: Visit Provider Obstetrics & Gynecology
DX: R10.20 Pelvic and perineal pain unspecified side (principal)
CPT/HCPCS: 76830; 76856

== ENCOUNTER → 2025-01-30 14:32 | Outpatient (BNV) | payer OTHER, SELFPAY | PROVIDERS: Visit Provider Radiology Diagnostic Radiology | DX: R10.21 Pelvic and perineal pain right side (principal); Z97.5 Presence of (intrauterine) contraceptive device | CPT/HCPCS: 76830; 76856 ==

== ENCOUNTER 2025-02-13 13:53 | Outpatient (AMB) | payer OTHER, SELFPAY ==
--- NOTE | 2025-02-13 13:53 | A.OFFVIS_ITS ---
Intake Visit Reasons: ultrasound follow up Allergies No Known Allergies Allergy (Verified 01/17/25 15:13) HPI Comments Details: Presenting for follow-up regarding her pelvic pain. The patient is doing well. The following workup was done so far: GC/CT negative. Last visit urine test was negative. Last visit urine dip was negative. Pelvic ultrasound showed the following: Uterus 11.3 x 4.8 x 4.3 cm. Endometrium 1 cm. IUD in normal position. No free fluid. Right ovary 2.1 x 1.5 x 2.8 cm. Left ovary 2.6 x 1.6 x 2.1 cm. No significant focal abnormality. Impression: No significant abnormality PFSH Medical History Epidermal cyst Morbid obesity Anemia IUD (intrauterine device) in place Heartburn Arthritis Back pain History of blood transfusion Depression Snores Smoker Hx of menorrhagia Sinusitis Anxiety Surgical History History of excision of mass (07/01/22) Hx of section Hx of tubal ligation Family History Mother HTN (hypertension) Diabetes Mental health disorder Substance use disorder Social History Household Members: Children Housing: Apartment Are you a primary manager career to a significant other at home: Yes (children 15 + 17 yrs old) Do you presently have visiting nurse or other home services: No Alcohol intake: former Patient Tobacco Use Status: Current everyday Tobacco user Tobacco use type: Cigarette Cigarettes Per Day: 10 Years Smoked: 7 e-Cigarette/Vaping Use: Never Used Second Hand Smoke Exposure: No service: No Current occupational status: employed Current occupation: [employer] Gender identity: Female Cognitive needs: No Hearing needs: No Vision needs: No Female Reproductive History Menstrual Age of Menarche: 15 Review of Systems Const All systems reviewed & are unremarkable except as noted in HPI and below Reports as per HPI and Reports no additional complaints GI Reports no additional complaints Reports no additional complaints Telehealth Telehealth Telehealth Platform: [facility] Location of provider rendering services: practice address Location of patient: address on file Patient Identification confirmed using: Name, : Yes Telehealth method: video Patient verbally consented to treatment: Yes Patient verbally consented to billing insurance company: Yes Patient informed of any privacy concerns related to visit: Yes Minutes spent on Phone/Video with Pt.: 3 Assessment & Plan Assessment & Plan (1) Pain in pelvis: Code(s): R10.2 - Pelvic and perineal pain Category: Medical Plan: Discussed with the patient the results of the workup done including negative GC/chlamydia, urine dip, urine test and pelvic ultrasound. Differential diagnosis of beam department supervisor causes that have not be ruled out yet include but not limited to endometriosis, pelvic adhesions , or others. Recommended for the patient to see her PCP for further workup for non beam department supervisor causes; if the all the results are negative and the patient's pelvic pain is persistent, instructions given to patient to call back for further testing. Meanwhile, instructions were given the patient to go to emergency room or call in case of fever above 100.4, heavy vaginal bleeding, persistence or worsening of her pelvic pain. All questions answered, the patient verbalized understanding. I spent a total of 20 minutes reviewing the chart, talking to the patient via video and documenting in the medical record. Coding Level of Care Code Tele Est Pt Level 3 (95527) Diagnoses Pain in pelvis R10.2
== END 2025-02-13 16:25 | disposition home or self-care (01) ==
LOC: HO.HWS 13:53
PROVIDERS: Visit Provider Obstetrics & Gynecology
DX: R10.20 Pelvic and perineal pain unspecified side (principal)
CPT/HCPCS: 99213

== ENCOUNTER 2025-02-22 15:31 | Outpatient (AMB) | payer OTHER, SELFPAY ==
--- NOTE | 2025-02-22 15:42 | MHC.OFFVIS ---
Intake Visit Reasons: Excision cyst under Rt breast & sternum Allergies No Known Allergies Allergy (Verified 01/17/25 15:13) PFSH Medical History Epidermal cyst Morbid obesity Anemia IUD (intrauterine device) in place Heartburn Arthritis Back pain History of blood transfusion Depression Snores Smoker Hx of menorrhagia Sinusitis Anxiety Surgical History History of excision of mass (07/01/22) Hx of section Hx of tubal ligation Family History Mother HTN (hypertension) Diabetes Mental health disorder Substance use disorder Social History Household Members: Children Housing: Apartment Are you a primary spiritual care coordinator to a significant other at home: Yes (children 15 + 17 yrs old) Do you presently have visiting nurse or other home services: No Alcohol intake: former Patient Tobacco Use Status: Current everyday Tobacco user Tobacco use type: Cigarette Cigarettes Per Day: 10 Years Smoked: 7 e-Cigarette/Vaping Use: Never Used Second Hand Smoke Exposure: No service: No Current occupational status: employed Current occupation: [employer] Gender identity: Female Cognitive needs: No Hearing needs: No Vision needs: No Female Reproductive History Menstrual Age of Menarche: 15 Office Procedures Excision Details: The patient was placed in supine position. The area of the cyst on the sternum was prepped and draped. Lidocaine 1% was used for local anesthesia. I made an elliptical incision in the skin surrounding this this has induration with a blade 15. This was carried down through the full-thickness of the skin and subcutaneous fat to excise this entire interrupted area. This was sent as a specimen. The excised area was about 2.5 cm in widest dimension and involved subcutaneous fat. I closed the incision with full-thickness nylon 3-0 simple interrupted sutures. Dressings were applied. The procedure was completed. She tolerated the procedure well. There were no immediate complications. She was given wound care instructions. 26824-ewmxv/arms/legs 2.1-3cm Procedure code (CPT) selection complete Assessment & Plan Assessment & Plan (1) Epidermal cyst: Code(s): L72.0 - Epidermal cyst Category: Medical Plan: She was given wound care instructions. I will see her in the office for removal sutures. Coding Level of Care Code Procedure Only Diagnoses Epidermal cyst L72.0 CPT Codes Trunk/Arms/Legs - CPT: 22880-lezkl/arms/legs 2.1-3cm ([id number])
== END 2025-02-22 16:01 | disposition home or self-care (01) ==
LOC: HO.HGS 15:32
PROVIDERS: Visit Provider Surgery
DX: L72.0 Epidermal cyst (principal)
CPT/HCPCS: 11403

== ENCOUNTER 2025-02-22 15:31 | Outpatient (REF) | payer OTHER, SELFPAY | END 2025-02-22 15:32 | disposition home or self-care (01) | LOC: HO.LNP 15:31 | PROVIDERS: Visit Provider Surgery | DX: L72.0 Epidermal cyst (principal) | CPT/HCPCS: 11403; 88304 ==

== ENCOUNTER 2025-03-05 13:16 | Outpatient (AMB) | payer OTHER, SELFPAY ==
--- NOTE | 2025-03-05 13:18 | MHC.OFFVIS ---
Vital Signs 03/05/25 13:19 Height 5 ft 5 in Weight 296 lb BMI 49.3 BP 128/78 Blood Pressure Location Rt brachial Position Sitting Pulse 82 Intake Visit Reasons: suture removal Intake Note: Patient presents for suture removal status post office procedure for excision epidermal cyst of right sternum area. (02/22/2025) Pt c/o; irritation. Denies oozing, pain. Four sutures removed without incident. Service Porter Required: No Accompanied by: Self / Same As Patient Allergies No Known Allergies Allergy (Verified 03/05/25 13:24) HPI HPI suture removal: Details: She underwent excision of a cyst from the sternum under local anesthesia last 02/23/2025. She tolerated procedure well and currently denies significant complaints. [facility] Medical History Epidermal cyst Morbid obesity Anemia IUD (intrauterine device) in place Heartburn Arthritis Back pain History of blood transfusion Depression Snores Smoker Hx of menorrhagia Sinusitis Anxiety Surgical History Hx of removal of cyst (~02/22/25) History of excision of mass (07/01/22) Hx of section Hx of tubal ligation Family History Mother HTN (hypertension) Diabetes Mental health disorder Substance use disorder Social History Household Members: Children Housing: Apartment Are you a primary rn palliative care to a significant other at home: Yes (children 15 + 17 yrs old) Do you presently have visiting nurse or other home services: No Alcohol intake: former Patient Tobacco Use Status: Current everyday Tobacco user Tobacco use type: Cigarette Cigarettes Per Day: 10 Years Smoked: 7 e-Cigarette/Vaping Use: Never Used Second Hand Smoke Exposure: No service: No Current occupational status: employed Current occupation: [employer] Gender identity: Female Cognitive needs: No Hearing needs: No Vision needs: No Female Reproductive History Menstrual Age of Menarche: 15 Review of Systems Const Denies chills and Denies fever(s) Physical Exam Vital Signs: Last Vital Signs Pulse 82 03/05/25 13:19 BP 128/78 03/05/25 13:19 BMI result Body Mass Index 49.3 Const Nutritional Appearance: obese Chest Other: Excision site on the chest wall well healed, not infected Assessment & Plan Assessment & Plan (1) Epidermal cyst: Code(s): L72.0 - Epidermal cyst Category: Medical Plan: Status post excision. Her incision is well healed. Her sutures were removed Her path report shows a benign ruptured epidermal cyst. She understands the benign nature of this pathology. She can follow up on a p.r.n. basis. Coding Level of Care Code Global (08286) Diagnoses Epidermal cyst L72.0
[2025-03-05 13:19] VITALS: BP 128/78; PULSE 82; BMI 49.3
== END 2025-03-05 13:50 | disposition home or self-care (01) ==
LOC: HO.HGS 13:17
PROVIDERS: Visit Provider Surgery
DX: L72.0 Epidermal cyst (principal)
CPT/HCPCS: 99024

== ENCOUNTER → 2025-03-05 13:16 | Outpatient (BNVA) | payer OTHER, SELFPAY | PROVIDERS: Visit Provider Surgery | DX: Z48.02 Encounter for removal of sutures (principal); L72.0 Epidermal cyst | CPT/HCPCS: 99212 ==